=== PATIENT | male | born 1955 | race African-American/Black ===

== ENCOUNTER 2016-12-29 16:59 | Emergency (ER) | payer MEDICAID ==
[~2016-12-29] VITALS: Ht 182.9 cm; Wt 79.0 kg
[2016-12-29] MEDS ORDERED: ACETAMINOPHEN 325MG TABLET PO ONE (18:15)
[2016-12-29 22:43] VITALS: BP 140/78
== END 2016-12-29 22:44 | disposition home or self-care (01) ==
LOC: ER 17:15
DX: S09.90XA Unspecified injury of head, initial encounter (principal); I10 Essential (primary) hypertension; F17.200 Nicotine dependence, unspecified, uncomplicated; Y04.0XXA Assault by unarmed brawl or fight, initial encounter; Y93.89 Activity, other specified; Y92.89 Other specified places as the place of occurrence of the external cause; Y99.8 Other external cause status
CPT/HCPCS: 70450; 72040; 99284

== ENCOUNTER 2017-03-25 20:46 | Emergency (ER) | payer MEDICAID ==
[~2017-03-25] VITALS: Ht 182.9 cm; Wt 84.0 kg
[2017-03-26 03:22] LABS: CARBON DIOXIDE 29 mEq/L (21-32); CHLORIDE 104 mEq/L (98-107); ETHANOL BLOOD 141 mg/dL
[2017-03-26 03:29] LABS: BASOPHILS % 0.5 % (0.0-2.0); EOSINOPHILS % 2.2 % (0.0-5.0); HEMATOCRIT. 42.3 % (42.0-52.0); HEMOGLOBIN. 14.5 g/dL (14.0-18.0); LYMPHOCYTES % 36.7 % (20.0-50.0); MEAN CORPUSCULAR HEMOGLOBIN 38.1 pg (28.0-32.0); MEAN CORPUSCULAR VOLUME 111.2 fL (80.0-94.0); MEAN PLATELET VOLUME 8.6 fl (7.4-10.4); NEUTROPHILS % 53.6 % (40.0-76.0); PLATELET 193 x1000/uL (130-400); RED CELL DISTRIBUTION WIDTH 15.7 % (11.6-14.6)
[2017-03-26 03:29] LABS: CLARITY URINE CLEAR (CLEAR); COLOR URINE YELLOW (YELLOW); GLUCOSE URINE NEGATIVE (NEGATIVE); KETONES URINE NEGATIVE (NEGATIVE); LEUKOCYTE ESTERASE URINE NEGATIVE (NEGATIVE); NITRITE URINE NEGATIVE (NEGATIVE); OCCULT BLOOD URINE NEGATIVE (NEGATIVE); PH URINE 5.5 (4.5-8.0); PROTEIN URINE NEGATIVE (NEGATIVE); SPECIFIC GRAVITY URINE 1.011 (1.005-1.030); UROBILINOGEN URINE 0.2 E.U./dL (0.2-1.0)
[2017-03-26 03:43] LABS: *AMPHETAMINES SCREEN URINE NEGATIVE (NEGATIVE); *BARBITURATES SCREEN URINE NEGATIVE (NEGATIVE); *BENZODIAZEPINES SCREEN URINE NEGATIVE (NEGATIVE); *COCAINE SCREEN URINE NEGATIVE (NEGATIVE); CANNABINOID URINE SCREEN NEGATIVE (NEGATIVE); METHADONE URINE SCREEN NEGATIVE (NEGATIVE); OPIATES URINE SCREEN NEGATIVE (NEGATIVE); PHENCYCLIDINE URINE SCREEN PRESUMTIVE POSITIVE (NEGATIVE)
[2017-03-26 04:18] LABS: TROPONIN I < 0.02 ng/mL (0.00-0.04)
[2017-03-26 04:40] VITALS: BP 142/56
[2017-05-20] MEDS ORDERED: RIVA10TA PO (23:43)
== END 2017-03-26 07:27 | disposition left against medical advice (07) ==
LOC: ER 22:00
DX: R55 Syncope and collapse (principal); R06.02 Shortness of breath; R42 Dizziness and giddiness; I10 Essential (primary) hypertension; F17.200 Nicotine dependence, unspecified, uncomplicated; Z86.718 Personal history of other venous thrombosis and embolism
CPT/HCPCS: 36415; 70450; 71010; 72125; 80053; 80305; 81003; 83880; 84484; 85025; 93005; 99285; G0482; Z7610

== ENCOUNTER 2017-04-17 16:02 | Emergency (ER) | payer MEDICAID, OTHER ==
[~2017-04-17] VITALS: Ht 170.2 cm; Wt 80.0 kg
[2017-04-17 16:29] VITALS: BP 127/77
[2017-05-20] MEDS ORDERED: RIVA10TA PO (23:43)
== END 2017-04-17 19:20 | disposition left against medical advice (07) ==
LOC: ER 16:02
DX: Z53.21 Procedure and treatment not carried out due to patient leaving prior to being seen by health care provider (principal)

== ENCOUNTER 2017-04-29 17:24 | Inpatient (IN) | payer OTHER ==
[2017-04-28 21:48] VITALS: BP 138/89
[~2017-04-29] VITALS: Ht 177.8 cm; Wt 80.0 kg
[2017-04-29] MEDS ORDERED: ASPIRIN 81MG TABLET PO STA (17:56)
[2017-04-29] MEDS ORDERED: ONDANSETRON HCL 4MG/2ML VIAL IV STA (17:56)
[2017-04-29] MEDS ORDERED: MORPHINE SULFATE 10 MG/ML CPJ IV ONE (18:00)
[2017-04-29 18:19] LABS: BASOPHILS % 0.7 % (0.0-2.0); EOSINOPHILS % 1.1 % (0.0-5.0); HEMATOCRIT. 37.1 % (42.0-52.0); HEMOGLOBIN. 12.8 g/dL (14.0-18.0); LYMPHOCYTES % 24.7 % (20.0-50.0); MEAN CORPUSCULAR HEMOGLOBIN 36.9 pg (28.0-32.0); MEAN CORPUSCULAR VOLUME 106.8 fL (80.0-94.0); MEAN PLATELET VOLUME 8.6 fl (7.4-10.4); MONOCYTES % 7.8 % (2.0-8.0); NEUTROPHILS % 65.7 % (40.0-76.0); PLATELET 184 x1000/uL (130-400); RED BLOOD CELL COUNT 3.47 mill/uL (4.7-6.1); RED CELL DISTRIBUTION WIDTH 14.9 % (11.6-14.6)
[2017-04-29 18:25] LABS: CHLORIDE 105 mEq/L (98-107)
[2017-04-29 18:29] LABS: D-DIMER 2.22 mg/L FEU (<0.50); PARTIAL THROMBOPLASTIN TIME 26.4 sec (23.4-31.0); PROTHROMBIN TIME 10.5 sec (9.4-11.6)
[2017-04-29 18:31] LABS: CARBON DIOXIDE 25 mEq/L (21-32); ETHANOL BLOOD 112 mg/dL
[2017-04-29 18:34] LABS: *AMPHETAMINES SCREEN URINE NEGATIVE (NEGATIVE); *BARBITURATES SCREEN URINE NEGATIVE (NEGATIVE); *BENZODIAZEPINES SCREEN URINE PRESUMTIVE POSITIVE (NEGATIVE); *COCAINE SCREEN URINE NEGATIVE (NEGATIVE); CANNABINOID URINE SCREEN PRESUMTIVE POSITIVE (NEGATIVE); METHADONE URINE SCREEN NEGATIVE (NEGATIVE); OPIATES URINE SCREEN NEGATIVE (NEGATIVE); PHENCYCLIDINE URINE SCREEN PRESUMTIVE POSITIVE (NEGATIVE)
[2017-04-29 18:35] LABS: CREATINE KINASE 86 IU/L (39-308); TROPONIN I < 0.02 ng/mL (0.00-0.04)
[2017-04-29] MEDS ORDERED: CLONIDINE 0.2MG TABLET PO ONE (19:15)
[2017-04-29 21:18] VITALS: BP 138/89
[2017-04-29] MEDS ORDERED: ONDANSETRON HCL 4MG/2ML VIAL IV PRN (22:15)
[2017-04-29] MEDS ORDERED: MAGNESIUM/ALUMINUM HYDROXIDE/SIMETHICONE 30ML UDC PO PRN (22:15)
[2017-04-29] MEDS ORDERED: ACETAMINOPHEN 325MG TABLET PO PRN (22:15)
[2017-04-29] MEDS ORDERED: HYDROCODONE/ACETAMINOPHEN 5/325MG TABLET PO PRN (22:15)
[2017-04-29] MEDS ORDERED: LORAZEPAM 2MG/ML CPJ IV PRN (22:15)
[2017-04-29] MEDS ORDERED: IPRATROPIUM/ALBUTEROL 0.5-3(2.5)MG/3ML NEB INH PRN (22:15)
[2017-04-29] MEDS ORDERED: ENOXAPARIN 40MG/0.4ML SYR SUBCUT SCH (22:30)
[2017-04-29] MEDS ORDERED: IOHEXOL-350 100 ML BOTTLE ONE (23:16)
[2017-04-29] MEDS: ENOXAPARIN 80MG/0.8ML SYR SUBCUT SCH (23:16)
[2017-04-29] MEDS: SODIUM CHLORIDE 0.9% 1,000 ML IV SCH (23:24)
[2017-04-30] VITALS: BP 104/57
[2017-04-30] MEDS ORDERED: MVI, ADULT NO.1 10 ML, FOLIC ACID 1 MG, THIAMINE HCL 100 MG in SODIUM CHLORIDE 0.9% 1,0... IV NR ×4
[2017-04-30] MEDS ORDERED: CLON0.3T PO (00:20)
[2017-04-30] MEDS ORDERED: AMLO2.5T45 PO (00:20)
[2017-04-30 00:52] LABS: CARBON DIOXIDE 27 mEq/L (21-32); CHLORIDE 109 mEq/L (98-107)
[2017-04-30 04:00] VITALS: BP 116/58
[2017-04-30] MEDS: CHLORDIAZEPOXIDE 25MG CAPSULE PO SCH ×3 (05:54→21:21)
[2017-04-30 06:43] LABS: BASOPHILS % 0.8 % (0.0-2.0); EOSINOPHILS % 2.5 % (0.0-5.0); HEMATOCRIT. 35.2 % (42.0-52.0); HEMOGLOBIN. 11.9 g/dL (14.0-18.0); LYMPHOCYTES % 30.8 % (20.0-50.0); MEAN CORPUSCULAR HEMOGLOBIN 36.2 pg (28.0-32.0); MEAN CORPUSCULAR VOLUME 107.3 fL (80.0-94.0); MEAN PLATELET VOLUME 9.1 fl (7.4-10.4); MONOCYTES % 10.2 % (2.0-8.0); NEUTROPHILS % 55.7 % (40.0-76.0); PLATELET 162 x1000/uL (130-400); RED BLOOD CELL COUNT 3.28 mill/uL (4.7-6.1)
[2017-04-30 07:18] LABS: CREATINE KINASE MB FRACTION 1.2 ng/mL (0.5-3.6); TROPONIN I 0.03 ng/mL (0.00-0.04)
[2017-04-30 08:00] VITALS: BP 160/87
[2017-04-30] MEDS: THIAMINE HCL 100MG TABLET PO SCH (09:01)
[2017-04-30] MEDS: ENOXAPARIN 80MG/0.8ML SYR SUBCUT SCH ×2 (09:01→21:21)
[2017-04-30] MEDS: FOLIC ACID 1MG TABLET PO SCH (09:01)
[2017-04-30] MEDS: MULTIVITAMINS,THER W-MINERALS TABLET PO SCH (09:01)
[2017-04-30] MEDS: SODIUM CHLORIDE 0.9% 1,000 ML IV SCH (11:24)
[2017-04-30 11:33] VITALS: BP 110/64
[2017-04-30 15:38] VITALS: BP 141/70
[2017-04-30 15:56] LABS: CREATINE KINASE MB FRACTION 0.8 ng/mL (0.5-3.6); TROPONIN I 0.02 ng/mL (0.00-0.04)
[2017-04-30 20:00] VITALS: BP 144/81
[2017-05-01] VITALS: BP 137/85
[2017-05-01] MEDS: SODIUM CHLORIDE 0.9% 1,000 ML IV SCH ×2 (00:45→13:36)
[2017-05-01 04:00] VITALS: BP 142/84
[2017-05-01] MEDS: CHLORDIAZEPOXIDE 25MG CAPSULE PO SCH ×3 (05:06→21:18)
[2017-05-01 07:38] VITALS: BP 152/96
[2017-05-01] MEDS: FOLIC ACID 1MG TABLET PO SCH (08:50)
[2017-05-01] MEDS: CLONIDINE 0.1MG TABLET PO PRN ×2 (08:50→20:30)
[2017-05-01 08:51] LABS: BASOPHILS % 0.6 % (0.0-2.0); EOSINOPHILS % 1.9 % (0.0-5.0); HEMATOCRIT. 37.6 % (42.0-52.0); HEMOGLOBIN. 12.7 g/dL (14.0-18.0); LYMPHOCYTES % 25.8 % (20.0-50.0); MEAN CORPUSCULAR HEMOGLOBIN 36.2 pg (28.0-32.0); MEAN CORPUSCULAR VOLUME 107.1 fL (80.0-94.0); MEAN PLATELET VOLUME 9.6 fl (7.4-10.4); MONOCYTES % 9.8 % (2.0-8.0); NEUTROPHILS % 61.9 % (40.0-76.0); PLATELET 157 x1000/uL (130-400); RED BLOOD CELL COUNT 3.51 mill/uL (4.7-6.1)
[2017-05-01] MEDS: THIAMINE HCL 100MG TABLET PO SCH (08:51)
[2017-05-01] MEDS: MULTIVITAMINS,THER W-MINERALS TABLET PO SCH (08:51)
[2017-05-01] MEDS: ENOXAPARIN 80MG/0.8ML SYR SUBCUT SCH ×2 (08:51→20:30)
[2017-05-01 09:38] LABS: CARBON DIOXIDE 25 mEq/L (21-32); CHLORIDE 109 mEq/L (98-107)
[2017-05-01 11:47] VITALS: BP 126/71
[2017-05-01 14:52] LABS: BASOPHILS % 0.6 % (0.0-2.0); HEMATOCRIT. 39.5 % (42.0-52.0); HEMOGLOBIN. 13.3 g/dL (14.0-18.0); LYMPHOCYTES % 29.1 % (20.0-50.0); MEAN CORPUSCULAR HEMOGLOBIN 36.4 pg (28.0-32.0); MEAN CORPUSCULAR VOLUME 107.6 fL (80.0-94.0); MEAN PLATELET VOLUME 9.2 fl (7.4-10.4); MONOCYTES % 10.7 % (2.0-8.0); NEUTROPHILS % 57.6 % (40.0-76.0); PLATELET 160 x1000/uL (130-400); RED BLOOD CELL COUNT 3.67 mill/uL (4.7-6.1); RED CELL DISTRIBUTION WIDTH 14.8 % (11.6-14.6)
[2017-05-01 14:57] LABS: CHLORIDE 110 mEq/L (98-107)
[2017-05-01 15:01] LABS: CARBON DIOXIDE 27 mEq/L (21-32)
[2017-05-01 16:00] VITALS: BP 143/77
[2017-05-01] MEDS ORDERED: WARFARIN SODIUM 7.5MG TABLET PO SCH (18:00)
[2017-05-01 20:00] VITALS: BP 163/82
[2017-05-01] MEDS: AMLODIPINE 2.5MG TABLET PO SCH (20:30)
[2017-05-02] VITALS: BP 154/82
[2017-05-02] MEDS: SODIUM CHLORIDE 0.9% 1,000 ML IV SCH ×2 (02:35→16:02)
[2017-05-02 04:05] VITALS: BP 173/94
[2017-05-02] MEDS: CLONIDINE 0.1MG TABLET PO PRN (04:29)
[2017-05-02] MEDS: CHLORDIAZEPOXIDE 25MG CAPSULE PO SCH ×3 (05:50→21:19)
[2017-05-02 06:32] LABS: INR 1.1
[2017-05-02 08:00] VITALS: BP 156/91
[2017-05-02] MEDS: MULTIVITAMINS,THER W-MINERALS TABLET PO SCH (08:27)
[2017-05-02] MEDS: ENOXAPARIN 80MG/0.8ML SYR SUBCUT SCH ×2 (08:27→20:39)
[2017-05-02] MEDS: FOLIC ACID 1MG TABLET PO SCH (08:28)
[2017-05-02] MEDS: AMLODIPINE 2.5MG TABLET PO SCH (08:28)
[2017-05-02] MEDS: THIAMINE HCL 100MG TABLET PO SCH (08:28)
[2017-05-02 12:00] VITALS: BP 143/93
[2017-05-02 16:00] VITALS: BP 146/99
[2017-05-02] MEDS ORDERED: WARFARIN SODIUM 4MG TABLET PO NR (18:00)
[2017-05-02 19:55] VITALS: BP 160/88
[2017-05-02] MEDS: AMLODIPINE 5MG TABLET PO SCH (20:39)
[2017-05-03 00:01] VITALS: BP 152/75
[2017-05-03 03:53] VITALS: BP 141/85
[2017-05-03] MEDS: CHLORDIAZEPOXIDE 25MG CAPSULE PO SCH ×2 (05:07→12:55)
[2017-05-03 07:16] LABS: INR 1.1; PROTHROMBIN TIME 11.2 sec (9.4-11.6)
[2017-05-03 08:00] VITALS: BP 177/97
[2017-05-03] MEDS: CLONIDINE 0.1MG TABLET PO PRN (09:16)
[2017-05-03] MEDS: MULTIVITAMINS,THER W-MINERALS TABLET PO SCH (09:16)
[2017-05-03] MEDS: THIAMINE HCL 100MG TABLET PO SCH (09:16)
[2017-05-03] MEDS: AMLODIPINE 5MG TABLET PO SCH (09:16)
[2017-05-03] MEDS: FOLIC ACID 1MG TABLET PO SCH (09:17)
[2017-05-03] MEDS: ENOXAPARIN 80MG/0.8ML SYR SUBCUT SCH (09:17)
[2017-05-03 12:00] VITALS: BP 142/82
[2017-05-03] MEDS: SODIUM CHLORIDE 0.9% 1,000 ML IV SCH (12:42)
[2017-05-03 16:00] VITALS: BP 135/88
[2017-05-03 17:33] VITALS: BP 135/88
[2017-05-03] MEDS ORDERED: WARFARIN SODIUM 7.5MG TABLET PO SCH (18:00)
[2017-05-20] MEDS ORDERED: RIVA10TA PO (23:43)
== END 2017-05-03 18:26 | disposition home health service (06) | DRG 203 ==
LOC: ER 18:33 → 8WST 19:41 → EDBEDREQTM 19:43 → EDBEDREQ 19:43 → ENRESERV 20:05 → 8WST 21:18
PROVIDERS: ADMIT Internal Medicine; ATTEND Internal Medicine
DX: M94.0 Chondrocostal junction syndrome [Tietze] (principal); I27.82 Chronic pulmonary embolism; I10 Essential (primary) hypertension; D64.9 Anemia, unspecified; F16.10 Hallucinogen abuse, uncomplicated; F10.10 Alcohol abuse, uncomplicated; F12.90 Cannabis use, unspecified, uncomplicated; D63.8 Anemia in other chronic diseases classified elsewhere; F17.200 Nicotine dependence, unspecified, uncomplicated; I82.503 Chronic embolism and thrombosis of unspecified deep veins of lower extremity, bilateral; J44.9 Chronic obstructive pulmonary disease, unspecified; F19.10 Other psychoactive substance abuse, uncomplicated; Z79.01 Long term (current) use of anticoagulants; Z91.14 Patient's other noncompliance with medication regimen
CPT/HCPCS: 36415; 71010; 71275; 80048; 80053; 80061; 80305; 82550; 82553; 83605; 83690; 83735; 83880; 84443; 84484; 85025; 85379; 85610; 85730; 87040; 93005; 93306; 93970; 96374; 96375; 99285; G0482; J1650; J2270; J2405; J3411; J3490; J7030; Q9967

== ENCOUNTER 2017-05-14 15:55 | Emergency (ER) | payer OTHER ==
[~2017-05-14 15:55] MED LIST: AMLO2.5T45 PO; CLON0.3T PO
[2017-05-14 20:35] VITALS: BP 168/90
[2017-05-14 21:48] LABS: BASOPHILS % 0.5 % (0.0-2.0); EOSINOPHILS % 2.7 % (0.0-5.0); HEMOGLOBIN. 14.9 g/dL (14.0-18.0); INR 1.1; LYMPHOCYTES % 26.7 % (20.0-50.0); MEAN CORPUSCULAR HEMOGLOBIN 36.5 pg (28.0-32.0); MEAN CORPUSCULAR VOLUME 107.5 fL (80.0-94.0); MEAN PLATELET VOLUME 9.1 fl (7.4-10.4); MONOCYTES % 5.1 % (2.0-8.0); PLATELET 155 x1000/uL (130-400); PROTHROMBIN TIME 11.2 sec (9.4-11.6); RED BLOOD CELL COUNT 4.09 mill/uL (4.7-6.1); RED CELL DISTRIBUTION WIDTH 14.7 % (11.6-14.6)
[2017-05-14 21:57] LABS: CARBON DIOXIDE 23 mEq/L (21-32); CHLORIDE 104 mEq/L (98-107); ETHANOL BLOOD 61 mg/dL; TROPONIN I < 0.02 ng/mL (0.00-0.04)
[2017-05-14 22:17] LABS: *AMPHETAMINES SCREEN URINE NEGATIVE (NEGATIVE); *BARBITURATES SCREEN URINE NEGATIVE (NEGATIVE); *BENZODIAZEPINES SCREEN URINE PRESUMTIVE POSITIVE (NEGATIVE); *COCAINE SCREEN URINE NEGATIVE (NEGATIVE); CANNABINOID URINE SCREEN NEGATIVE (NEGATIVE); METHADONE URINE SCREEN NEGATIVE (NEGATIVE); OPIATES URINE SCREEN NEGATIVE (NEGATIVE); PHENCYCLIDINE URINE SCREEN PRESUMTIVE POSITIVE (NEGATIVE)
[2017-05-20] MEDS ORDERED: RIVA10TA PO (23:43)
== END 2017-05-15 01:21 | disposition home or self-care (01) ==
LOC: ER 16:07
DX: R42 Dizziness and giddiness (principal); F16.10 Hallucinogen abuse, uncomplicated; F13.10 Sedative, hypnotic or anxiolytic abuse, uncomplicated; F12.10 Cannabis abuse, uncomplicated; F10.20 Alcohol dependence, uncomplicated; Y90.3 Blood alcohol level of 60-79 mg/100 ml; R07.89 Other chest pain; I10 Essential (primary) hypertension; Z91.14 Patient's other noncompliance with medication regimen
CPT/HCPCS: 36415; 71010; 80053; 80305; 83690; 83880; 84484; 85025; 85610; 85730; 93005; 99285; G0482; Z7610

== ENCOUNTER 2017-05-24 20:35 | Emergency (ER) | payer MEDICAID, OTHER ==
[~2017-05-24] VITALS: Ht 177.8 cm; Wt 95.0 kg
[~2017-05-24 20:35] MED LIST changes: +RIVA10TA PO
[2017-05-25] MEDS ORDERED: ACETAMINOPHEN 500MG TABLET PO ONE (00:15)
[2017-05-25 00:48] VITALS: BP 129/85
[2017-05-25] MEDS ORDERED: RIVAROXABAN 10 MG TABLET PO SCH (17:00)
== END 2017-05-25 00:49 | disposition home or self-care (01) ==
LOC: ER 20:35
DX: M79.661 Pain in right lower leg (principal); G89.29 Other chronic pain; Z86.718 Personal history of other venous thrombosis and embolism; Z79.01 Long term (current) use of anticoagulants
CPT/HCPCS: 99283

== ENCOUNTER 2017-05-27 15:19 | Emergency (ER) | payer MEDICAID, OTHER ==
[~2017-05-27] VITALS: Ht 172.7 cm; Wt 77.0 kg
[2017-05-27] MEDS ORDERED: SODIUM CHLORIDE 0.9% 1,000 ML IV ONE (18:51)
[2017-05-27 20:33] LABS: *AMPHETAMINES SCREEN URINE NEGATIVE (NEGATIVE); *BARBITURATES SCREEN URINE NEGATIVE (NEGATIVE); *BENZODIAZEPINES SCREEN URINE PRESUMTIVE POSITIVE (NEGATIVE); *COCAINE SCREEN URINE NEGATIVE (NEGATIVE); CANNABINOID URINE SCREEN NEGATIVE (NEGATIVE); METHADONE URINE SCREEN NEGATIVE (NEGATIVE); OPIATES URINE SCREEN NEGATIVE (NEGATIVE); PHENCYCLIDINE URINE SCREEN PRESUMTIVE POSITIVE (NEGATIVE)
[2017-05-27 21:30] VITALS: BP 120/70
== END 2017-05-27 22:07 | disposition home or self-care (01) ==
LOC: ER 15:25
DX: F19.10 Other psychoactive substance abuse, uncomplicated (principal); Z79.01 Long term (current) use of anticoagulants; Z86.718 Personal history of other venous thrombosis and embolism
CPT/HCPCS: 36415; 80305; 96360; 99284; G0482; J7030; Z7610

== ENCOUNTER 2017-05-27 22:37 | Emergency (ER) | payer MEDICAID ==
[~2017-05-27] VITALS: Ht 182.9 cm; Wt 74.0 kg
[2017-05-28 07:04] VITALS: BP 162/84
[2017-05-28] MEDS ORDERED: ACETAMINOPHEN 500MG TABLET PO ONE (08:30)
[2017-05-28] MEDS ORDERED: TRAMADOL 50MG TABLET PO ONE (08:30)
== END 2017-05-28 09:13 | disposition left against medical advice (07) ==
LOC: ER 22:38
DX: R07.9 Chest pain, unspecified (principal); M79.605 Pain in left leg; M54.9 Dorsalgia, unspecified; F12.10 Cannabis abuse, uncomplicated; F16.10 Hallucinogen abuse, uncomplicated; F17.200 Nicotine dependence, unspecified, uncomplicated; Z79.01 Long term (current) use of anticoagulants; Z91.19 Patient's noncompliance with other medical treatment and regimen
CPT/HCPCS: 93005; 99284; Z7610

== ENCOUNTER 2017-06-03 15:24 | Emergency (ER) | payer MEDICAID ==
[~2017-06-03] VITALS: Ht 175.3 cm; Wt 85.0 kg
[2017-06-03 19:15] VITALS: BP 138/74
== END 2017-06-03 19:38 | disposition home or self-care (01) ==
LOC: ER 15:41
DX: F10.129 Alcohol abuse with intoxication, unspecified (principal); F17.200 Nicotine dependence, unspecified, uncomplicated; G89.29 Other chronic pain; F15.10 Other stimulant abuse, uncomplicated; Z86.718 Personal history of other venous thrombosis and embolism; Y90.9 Presence of alcohol in blood, level not specified
CPT/HCPCS: 82962; 99283

== ENCOUNTER 2017-06-13 19:45 | Emergency (ER) | payer MEDICAID, OTHER ==
[~2017-06-13] VITALS: Ht 177.8 cm; Wt 86.0 kg
[2017-06-13 21:07] LABS: BASOPHILS % 0.7 % (0.0-2.0); EOSINOPHILS % 0.5 % (0.0-5.0); HEMATOCRIT. 36.4 % (42.0-52.0); HEMOGLOBIN. 12.2 g/dL (14.0-18.0); LYMPHOCYTES % 21.9 % (20.0-50.0); MEAN CORPUSCULAR HEMOGLOBIN 34.8 pg (28.0-32.0); MEAN CORPUSCULAR VOLUME 103.9 fL (80.0-94.0); MEAN PLATELET VOLUME 8.4 fl (7.4-10.4); MONOCYTES % 7.7 % (2.0-8.0); NEUTROPHILS % 69.2 % (40.0-76.0); PLATELET 185 x1000/uL (130-400); RED BLOOD CELL COUNT 3.51 mill/uL (4.7-6.1); RED CELL DISTRIBUTION WIDTH 14.9 % (11.6-14.6)
[2017-06-13 21:09] LABS: CLARITY URINE CLEAR (CLEAR); COLOR URINE YELLOW (YELLOW); GLUCOSE URINE NEGATIVE (NEGATIVE); KETONES URINE TRACE (NEGATIVE); LEUKOCYTE ESTERASE URINE NEGATIVE (NEGATIVE); NITRITE URINE NEGATIVE (NEGATIVE); OCCULT BLOOD URINE NEGATIVE (NEGATIVE); PROTEIN URINE NEGATIVE (NEGATIVE); SPECIFIC GRAVITY URINE 1.017 (1.005-1.030); UROBILINOGEN URINE 0.2 E.U./dL (0.2-1.0)
[2017-06-13 21:13] LABS: CHLORIDE 105 mEq/L (98-107)
[2017-06-13 21:16] LABS: PARTIAL THROMBOPLASTIN TIME 27.3 sec (23.4-31.0); PROTHROMBIN TIME 10.5 sec (9.4-11.6)
[2017-06-13 21:17] LABS: CARBON DIOXIDE 28 mEq/L (21-32)
[2017-06-13 21:23] LABS: *AMPHETAMINES SCREEN URINE NEGATIVE (NEGATIVE); *BARBITURATES SCREEN URINE NEGATIVE (NEGATIVE); *BENZODIAZEPINES SCREEN URINE NEGATIVE (NEGATIVE); *COCAINE SCREEN URINE NEGATIVE (NEGATIVE); CANNABINOID URINE SCREEN NEGATIVE (NEGATIVE); METHADONE URINE SCREEN NEGATIVE (NEGATIVE); OPIATES URINE SCREEN NEGATIVE (NEGATIVE); PHENCYCLIDINE URINE SCREEN PRESUMTIVE POSITIVE (NEGATIVE)
[2017-06-13 21:23] LABS: TROPONIN I < 0.02 ng/mL (0.00-0.04)
[2017-06-13] MEDS ORDERED: SODIUM CHLORIDE 0.9% 1,000 ML IV ONE (23:30)
[2017-06-14 06:27] VITALS: BP 143/87
== END 2017-06-14 06:25 | disposition home or self-care (01) ==
LOC: ER 19:45
DX: R42 Dizziness and giddiness (principal); F10.10 Alcohol abuse, uncomplicated; Y90.1 Blood alcohol level of 20-39 mg/100 ml; F16.10 Hallucinogen abuse, uncomplicated; F12.90 Cannabis use, unspecified, uncomplicated; F17.210 Nicotine dependence, cigarettes, uncomplicated
CPT/HCPCS: 36415; 71010; 80053; 80305; 81003; 83690; 84484; 85025; 85610; 85730; 93005; 99285; G0482; J7030; Z7610

== ENCOUNTER 2017-06-18 14:42 | Emergency (ER) | payer OTHER ==
[~2017-06-18] VITALS: Ht 175.3 cm; Wt 98.0 kg
[2017-06-18 16:00] LABS: BASOPHILS % 0.5 % (0.0-2.0); EOSINOPHILS % 0.7 % (0.0-5.0); HEMATOCRIT. 37.6 % (42.0-52.0); MEAN CORPUSCULAR HEMOGLOBIN 36.7 pg (28.0-32.0); MEAN CORPUSCULAR VOLUME 106.3 fL (80.0-94.0); MEAN PLATELET VOLUME 9.5 fl (7.4-10.4); MONOCYTES % 7.4 % (2.0-8.0); NEUTROPHILS % 71.4 % (40.0-76.0); PLATELET 239 x1000/uL (130-400); RED BLOOD CELL COUNT 3.54 mill/uL (4.7-6.1)
[2017-06-18 16:36] LABS: CARBON DIOXIDE 28 mEq/L (21-32); CHLORIDE 107 mEq/L (98-107); ETHANOL BLOOD < 10 mg/dL; TROPONIN I < 0.02 ng/mL (0.00-0.04)
[2017-06-18] MEDS ORDERED: IBUPROFEN 400MG TABLET PO ONE (20:45)
[2017-06-18] MEDS ORDERED: ACETAMINOPHEN 325MG TABLET PO ONE (20:45)
[2017-06-18 21:05] VITALS: BP 107/65
== END 2017-06-18 21:05 | disposition home or self-care (01) ==
LOC: ER 14:59
DX: R07.9 Chest pain, unspecified (principal); R51 Headache; M54.9 Dorsalgia, unspecified; I10 Essential (primary) hypertension; F12.10 Cannabis abuse, uncomplicated; F16.10 Hallucinogen abuse, uncomplicated; Z86.718 Personal history of other venous thrombosis and embolism
CPT/HCPCS: 36415; 80053; 84484; 85025; 93005; 99285; G0482; Z7610

== ENCOUNTER 2017-06-19 14:57 | Emergency (ER) | payer OTHER ==
[~2017-06-19] VITALS: Ht 172.7 cm; Wt 88.0 kg
[2017-06-19 15:59] LABS: BASOPHILS % 1.2 % (0.0-2.0); EOSINOPHILS % 0.4 % (0.0-5.0); HEMATOCRIT. 35.1 % (42.0-52.0); HEMOGLOBIN. 12.6 g/dL (14.0-18.0); LYMPHOCYTES % 25.2 % (20.0-50.0); MEAN CORPUSCULAR HEMOGLOBIN 37.5 pg (28.0-32.0); MEAN CORPUSCULAR VOLUME 104.9 fL (80.0-94.0); MEAN PLATELET VOLUME 8.1 fl (7.4-10.4); MONOCYTES % 7.6 % (2.0-8.0); NEUTROPHILS % 65.6 % (40.0-76.0); PLATELET 179 x1000/uL (130-400); RED BLOOD CELL COUNT 3.35 mill/uL (4.7-6.1); RED CELL DISTRIBUTION WIDTH 14.8 % (11.6-14.6)
[2017-06-19 16:05] LABS: INR 1.1; PARTIAL THROMBOPLASTIN TIME 26.4 sec (23.4-31.0); PROTHROMBIN TIME 11.1 sec (9.4-11.6)
[2017-06-19 16:16] LABS: AMMONIA < 25 uMol/L (<32)
[2017-06-19 16:23] LABS: CARBON DIOXIDE 26 mEq/L (21-32); CHLORIDE 106 mEq/L (98-107); ETHANOL BLOOD 65 mg/dL; TROPONIN I < 0.02 ng/mL (0.00-0.04)
[2017-06-19] MEDS ORDERED: KETOROLAC 30MG/ML VIAL IV ONE (18:00)
[2017-06-19] MEDS ORDERED: SODIUM CHLORIDE 0.9% 1,000 ML IV ONE (18:00)
[2017-06-19 18:07] LABS: CLARITY URINE CLEAR (CLEAR); COLOR URINE DARK YELLOW (YELLOW); KETONES URINE TRACE (NEGATIVE); LEUKOCYTE ESTERASE URINE TRACE (NEGATIVE); NITRITE URINE NEGATIVE (NEGATIVE); OCCULT BLOOD URINE NEGATIVE (NEGATIVE); PROTEIN URINE 1+ (NEGATIVE)
[2017-06-19 18:28] LABS: *AMPHETAMINES SCREEN URINE NEGATIVE (NEGATIVE); *BARBITURATES SCREEN URINE NEGATIVE (NEGATIVE); *BENZODIAZEPINES SCREEN URINE NEGATIVE (NEGATIVE); *COCAINE SCREEN URINE NEGATIVE (NEGATIVE); CANNABINOID URINE SCREEN PRESUMTIVE POSITIVE (NEGATIVE); METHADONE URINE SCREEN NEGATIVE (NEGATIVE); OPIATES URINE SCREEN NEGATIVE (NEGATIVE); PHENCYCLIDINE URINE SCREEN PRESUMTIVE POSITIVE (NEGATIVE)
[2017-06-19] MEDS ORDERED: TRAMADOL 50MG TABLET PO ONE (21:00)
[2017-06-19 21:44] VITALS: BP 145/96
== END 2017-06-19 22:10 | disposition home or self-care (01) ==
LOC: ER 15:33
DX: F10.239 Alcohol dependence with withdrawal, unspecified (principal); I10 Essential (primary) hypertension; F12.10 Cannabis abuse, uncomplicated; F16.10 Hallucinogen abuse, uncomplicated; M19.90 Unspecified osteoarthritis, unspecified site; Y90.3 Blood alcohol level of 60-79 mg/100 ml
CPT/HCPCS: 36415; 70450; 72125; 80053; 80305; 81001; 82140; 83605; 84443; 84484; 85025; 85610; 85730; 86850; 86900; 86901; 93005; 96374; 99285; G0482; J1885; J7030; Z7610

== ENCOUNTER 2017-06-20 16:50 | Emergency (ER) | payer OTHER ==
[~2017-06-20] VITALS: Ht 175.3 cm; Wt 75.0 kg
[2017-06-20 16:53] VITALS: BP 124/78
== END 2017-06-20 19:30 | disposition left against medical advice (07) ==
LOC: ER 17:05
DX: M54.9 Dorsalgia, unspecified (principal); Z53.21 Procedure and treatment not carried out due to patient leaving prior to being seen by health care provider

== ENCOUNTER 2017-07-06 12:15 | Emergency (ER) | payer OTHER ==
[~2017-07-06] VITALS: Ht 177.8 cm; Wt 75.0 kg
[2017-07-06 15:30] VITALS: BP 136/82
[2017-07-06] MEDS: KETOROLAC 30MG/ML VIAL IM ONE (15:30)
== END 2017-07-06 15:49 | disposition home or self-care (01) ==
LOC: ER 12:15
DX: B34.9 Viral infection, unspecified (principal); I10 Essential (primary) hypertension; F12.10 Cannabis abuse, uncomplicated; F19.10 Other psychoactive substance abuse, uncomplicated
CPT/HCPCS: 96372; 99283; J1885

== ENCOUNTER 2017-07-09 17:39 | Emergency (ER) | payer MEDICAID, OTHER ==
[~2017-07-09] VITALS: Ht 182.9 cm; Wt 107.0 kg
[2017-07-09] MEDS ORDERED: ACETAMINOPHEN 325MG TABLET PO STA (20:58)
[2017-07-09] MEDS ORDERED: KETOROLAC 30MG/ML VIAL IV STA (20:58)
[2017-07-09 21:20] LABS: BASOPHILS % 0.9 % (0.0-2.0); EOSINOPHILS % 1.5 % (0.0-5.0); HEMATOCRIT. 41.1 % (42.0-52.0); HEMOGLOBIN. 13.6 g/dL (14.0-18.0); LYMPHOCYTES % 26.9 % (20.0-50.0); MEAN CORPUSCULAR HEMOGLOBIN 34.8 pg (28.0-32.0); MEAN CORPUSCULAR VOLUME 105.4 fL (80.0-94.0); MEAN PLATELET VOLUME 8.4 fl (7.4-10.4); MONOCYTES % 14.7 % (2.0-8.0); PLATELET 175 x1000/uL (130-400); RED CELL DISTRIBUTION WIDTH 15.8 % (11.6-14.6)
[2017-07-09 21:23] LABS: CHLORIDE 105 mEq/L (98-107)
[2017-07-09 21:26] LABS: PROTHROMBIN TIME 10.8 sec (9.4-11.6)
[2017-07-09] MEDS ORDERED: SODIUM CHLORIDE 0.9% 500 ML IV ONE (21:30)
[2017-07-09 21:33] LABS: CARBON DIOXIDE 27 mEq/L (21-32)
[2017-07-09 23:08] LABS: CLARITY URINE CLEAR (CLEAR); COLOR URINE DARK YELLOW (YELLOW); KETONES URINE 1+ (NEGATIVE); LEUKOCYTE ESTERASE URINE NEGATIVE (NEGATIVE); NITRITE URINE NEGATIVE (NEGATIVE); OCCULT BLOOD URINE NEGATIVE (NEGATIVE); PROTEIN URINE 1+ (NEGATIVE); SPECIFIC GRAVITY URINE 1.026 (1.005-1.030)
[2017-07-09] MEDS ORDERED: CEFTRIAXONE 2 G in DEXTROSE 5% WATER 50 ML IV NR (23:45)
[2017-07-09] MEDS ORDERED: ACETAMINOPHEN 325MG TABLET PO NR (23:45)
[2017-07-10 12:00] VITALS: BP 140/84
== END 2017-07-10 13:47 | disposition home or self-care (01) ==
LOC: ER 18:10
DX: M48.56XA Collapsed vertebra, not elsewhere classified, lumbar region, initial encounter for fracture (principal); D53.9 Nutritional anemia, unspecified; N39.0 Urinary tract infection, site not specified; G89.29 Other chronic pain; I10 Essential (primary) hypertension; F12.10 Cannabis abuse, uncomplicated; F16.10 Hallucinogen abuse, uncomplicated; F17.200 Nicotine dependence, unspecified, uncomplicated; Z86.718 Personal history of other venous thrombosis and embolism
CPT/HCPCS: 36415; 74176; 80053; 81001; 83690; 85025; 85610; 87077; 87086; 87186; 96361; 96365; 96375; 99285; J0696; J1885; J7030; J7040; Z7610; J7060

== ENCOUNTER 2017-07-12 23:00 | Emergency (ER) | payer MEDICAID ==
[~2017-07-12] VITALS: Ht 172.7 cm; Wt 75.0 kg
[2017-07-13] MEDS ORDERED: ACETAMINOPHEN 325MG TABLET PO ONE (06:45)
[2017-07-13 07:26] VITALS: BP 159/99
== END 2017-07-13 08:47 | disposition home or self-care (01) ==
LOC: ER 23:00
DX: F10.129 Alcohol abuse with intoxication, unspecified (principal); M54.5 Low back pain; F17.200 Nicotine dependence, unspecified, uncomplicated; I10 Essential (primary) hypertension; F12.10 Cannabis abuse, uncomplicated; F19.10 Other psychoactive substance abuse, uncomplicated; Y90.9 Presence of alcohol in blood, level not specified
CPT/HCPCS: 99283

== ENCOUNTER 2017-07-18 08:57 | Emergency (ER) | payer MEDICAID ==
[~2017-07-18] VITALS: Ht 177.8 cm; Wt 75.0 kg
[2017-07-18 11:14] VITALS: BP 150/81
[2017-07-18] MEDS ORDERED: ONDANSETRON HCL 4MG/2ML VIAL IV ONE (11:15)
[2017-07-18] MEDS ORDERED: SODIUM CHLORIDE 0.9% 1,000 ML IV ONE (11:15)
[2017-07-18 11:58] LABS: BASOPHILS % 0.4 % (0.0-2.0); EOSINOPHILS % 0.4 % (0.0-5.0); HEMATOCRIT. 39.8 % (42.0-52.0); HEMOGLOBIN. 13.4 g/dL (14.0-18.0); LYMPHOCYTES % 20.8 % (20.0-50.0); MEAN CORPUSCULAR HEMOGLOBIN 35.5 pg (28.0-32.0); MEAN CORPUSCULAR VOLUME 105.5 fL (80.0-94.0); MEAN PLATELET VOLUME 9.2 fl (7.4-10.4); MONOCYTES % 7.7 % (2.0-8.0); NEUTROPHILS % 70.7 % (40.0-76.0); PLATELET 140 x1000/uL (130-400); RED BLOOD CELL COUNT 3.77 mill/uL (4.7-6.1); RED CELL DISTRIBUTION WIDTH 15.9 % (11.6-14.6)
[2017-07-18] MEDS ORDERED: ONDANSETRON 4MG ODT PO SCH (12:00)
[2017-07-18 12:02] LABS: CHLORIDE 107 mEq/L (98-107)
[2017-07-18 12:11] LABS: CARBON DIOXIDE 31 mEq/L (21-32)
[2017-07-18] MEDS ORDERED: ACETAMINOPHEN 500MG TABLET PO ONE (13:00)
== END 2017-07-18 14:47 | disposition home or self-care (01) ==
LOC: ER 09:13
DX: R10.13 Epigastric pain (principal); M25.551 Pain in right hip; I10 Essential (primary) hypertension; F16.10 Hallucinogen abuse, uncomplicated; F12.90 Cannabis use, unspecified, uncomplicated; F10.10 Alcohol abuse, uncomplicated; R79.89 Other specified abnormal findings of blood chemistry; Z79.899 Other long term (current) drug therapy
CPT/HCPCS: 36415; 73502; 80053; 85025; 99285; J2405; J7030; Q0162; Z7610

== ENCOUNTER 2017-07-19 23:06 | Emergency (ER) | payer MEDICAID ==
[~2017-07-19] VITALS: Ht 185.4 cm; Wt 72.0 kg
[2017-07-20 08:15] VITALS: BP 181/92
== END 2017-07-20 09:22 | disposition home or self-care (01) ==
LOC: ER 23:06
DX: S22.32XA Fracture of one rib, left side, initial encounter for closed fracture (principal); I10 Essential (primary) hypertension; W01.198A Fall on same level from slipping, tripping and stumbling with subsequent striking against other object, initial encounter; Y93.89 Activity, other specified; Y92.89 Other specified places as the place of occurrence of the external cause; Y99.8 Other external cause status
CPT/HCPCS: 71101; 99284; Z7610

== ENCOUNTER 2017-08-14 21:17 | Inpatient (IN) | payer MEDICAID ==
[~2017-08-14] VITALS: Ht 182.9 cm; Wt 86.2 kg
[2017-08-15] MEDS ORDERED: MORPHINE SULFATE 4 MG/ML CPJ (NOT FOR IM USE) IV ONE (06:15)
[2017-08-15] MEDS ORDERED: FAMOTIDINE 20MG/2ML VIAL IV ONE (06:15)
[2017-08-15] MEDS ORDERED: SODIUM CHLORIDE 0.9% 1,000 ML IV ONE (06:15)
[2017-08-15 06:41] LABS: BASOPHILS % 0.8 % (0.0-2.0); EOSINOPHILS % 6.1 % (0.0-5.0); HEMATOCRIT. 35.3 % (42.0-52.0); HEMOGLOBIN. 11.8 g/dL (14.0-18.0); LYMPHOCYTES % 22.3 % (20.0-50.0); MEAN CORPUSCULAR HEMOGLOBIN 34.9 pg (28.0-32.0); MEAN CORPUSCULAR VOLUME 104.3 fL (80.0-94.0); MONOCYTES % 8.4 % (2.0-8.0); NEUTROPHILS % 62.4 % (40.0-76.0); PLATELET 234 x1000/uL (130-400); RED BLOOD CELL COUNT 3.39 mill/uL (4.7-6.1); RED CELL DISTRIBUTION WIDTH 15.4 % (11.6-14.6)
[2017-08-15 06:48] LABS: PROTHROMBIN TIME 10.1 sec (9.4-11.6)
[2017-08-15 06:54] LABS: CHLORIDE 106 mEq/L (98-107)
[2017-08-15 08:25] LABS: CLARITY URINE CLEAR (CLEAR); COLOR URINE YELLOW (YELLOW); KETONES URINE NEGATIVE (NEGATIVE); LEUKOCYTE ESTERASE URINE NEGATIVE (NEGATIVE); NITRITE URINE NEGATIVE (NEGATIVE); OCCULT BLOOD URINE NEGATIVE (NEGATIVE); PROTEIN URINE NEGATIVE (NEGATIVE); UROBILINOGEN URINE 0.2 E.U./dL (0.2-1.0)
[2017-08-15 08:39] LABS: *AMPHETAMINES SCREEN URINE NEGATIVE (NEGATIVE); *BARBITURATES SCREEN URINE NEGATIVE (NEGATIVE); *BENZODIAZEPINES SCREEN URINE NEGATIVE (NEGATIVE); *COCAINE SCREEN URINE NEGATIVE (NEGATIVE); CANNABINOID URINE SCREEN NEGATIVE (NEGATIVE); METHADONE URINE SCREEN NEGATIVE (NEGATIVE); OPIATES URINE SCREEN PRESUMTIVE POSITIVE (NEGATIVE); PHENCYCLIDINE URINE SCREEN PRESUMTIVE POSITIVE (NEGATIVE)
[2017-08-15] MEDS ORDERED: NA PHOS,M-B/NA PHOS,DI-BA ENEMA 118ML PR PRN (09:45)
[2017-08-15] MEDS ORDERED: GUAIFENESIN 200MG/10ML SUGAR FREE UDC PO PRN (09:45)
[2017-08-15] MEDS ORDERED: ONDANSETRON HCL 4MG/2ML INJ IV PRN (09:45)
[2017-08-15] MEDS ORDERED: ACETAMINOPHEN 325MG TABLET PO PRN (09:45)
[2017-08-15] MEDS ORDERED: HYDROCODONE/ACETAMINOPHEN 5/325MG TABLET PO PRN (09:45)
[2017-08-15] MEDS ORDERED: LORAZEPAM 2MG/ML CPJ IV PRN (09:45)
[2017-08-15] MEDS ORDERED: CLONIDINE 0.1MG TABLET PO PRN (09:45)
[2017-08-15] MEDS ORDERED: DIPHENHYDRAMINE 50MG/ML VIAL IV PRN (09:45)
[2017-08-15] MEDS ORDERED: MAGNESIUM/ALUMINUM HYDROXIDE/SIMETHICONE 30ML UDC PO PRN (09:45)
[2017-08-15] MEDS ORDERED: IPRATROPIUM/ALBUTEROL 0.5-3(2.5)MG/3ML NEB INH PRN (09:45)
[2017-08-15] MEDS ORDERED: MORPHINE SULFATE 2 MG/ML CPJ (NOT FOR IM USE) IV PRN (09:45)
[2017-08-15] MEDS ORDERED: DOCUSATE SODIUM 100MG CAPSULE PO PRN (09:45)
[2017-08-15 13:15] VITALS: BP 173/81
[2017-08-15] MEDS: AMLODIPINE 5MG TABLET PO SCH ×2 (13:41→20:35)
[2017-08-15] MEDS: LISINOPRIL 10MG TABLET PO SCH ×2 (13:41→20:35)
[2017-08-15 14:45] VITALS: BP 169/73
[2017-08-15 16:00] VITALS: BP 110/57
[2017-08-15 16:14] LABS: CHLORIDE 106 mEq/L (98-107)
[2017-08-15] MEDS: FUROSEMIDE 40MG/4ML VIAL IVP SCH (17:10)
[2017-08-15] MEDS: ENOXAPARIN 40MG/0.4ML SYR SUBCUT SCH (17:11)
[2017-08-15 20:00] VITALS: BP 126/72
[2017-08-15] MEDS ORDERED: ENOXAPARIN 40MG/0.4ML SYR SUBCUT NR (20:00)
[2017-08-16] VITALS: BP 118/68
[2017-08-16 04:00] VITALS: BP 140/80
[2017-08-16] MEDS: FUROSEMIDE 40MG/4ML VIAL IVP SCH (07:00)
[2017-08-16 08:15] VITALS: BP 102/65
[2017-08-16] MEDS: ASPIRIN 81MG EC TABLET PO SCH (08:17)
[2017-08-16] MEDS: LISINOPRIL 10MG TABLET PO SCH ×2 (08:18→20:11)
[2017-08-16] MEDS: AMLODIPINE 5MG TABLET PO SCH ×2 (08:18→20:12)
[2017-08-16] MEDS: ENOXAPARIN 40MG/0.4ML SYR SUBCUT SCH (08:18)
[2017-08-16 12:00] VITALS: BP 133/79
[2017-08-16 12:14] LABS: BASOPHILS % 1.1 % (0.0-2.0); EOSINOPHILS % 3.3 % (0.0-5.0); HEMATOCRIT. 35.3 % (42.0-52.0); HEMOGLOBIN. 11.8 g/dL (14.0-18.0); LYMPHOCYTES % 20.9 % (20.0-50.0); MEAN CORPUSCULAR HEMOGLOBIN 35.2 pg (28.0-32.0); MEAN CORPUSCULAR VOLUME 105.4 fL (80.0-94.0); MEAN PLATELET VOLUME 8.5 fl (7.4-10.4); NEUTROPHILS % 64.7 % (40.0-76.0); PLATELET 248 x1000/uL (130-400); RED BLOOD CELL COUNT 3.35 mill/uL (4.7-6.1); RED CELL DISTRIBUTION WIDTH 15.4 % (11.6-14.6)
[2017-08-16 12:39] LABS: CHLORIDE 107 mEq/L (98-107); HDL CHOLESTEROL 86 mg/dL (40-59); LDL CHOLESTEROL 63 mg/dL (5-100); T4 FREE 0.97 ng/dL (0.76-1.46)
[2017-08-16] MEDS ORDERED: ENOXAPARIN 40MG/0.4ML SYR SUBCUT NR (12:45)
[2017-08-16 16:00] VITALS: BP 133/84
[2017-08-16] MEDS ORDERED: IOHEXOL-350 100 ML BOTTLE ONE (17:02)
[2017-08-16 20:00] VITALS: BP 132/80
[2017-08-16] MEDS: ENOXAPARIN 80MG/0.8ML SYR SUBCUT SCH (20:12)
[2017-08-17] VITALS: BP 127/77
[2017-08-17 04:00] VITALS: BP 127/82
[2017-08-17 07:21] LABS: EOSINOPHILS % 3.8 % (0.0-5.0); HEMOGLOBIN. 11.7 g/dL (14.0-18.0); LYMPHOCYTES % 29.9 % (20.0-50.0); MEAN CORPUSCULAR HEMOGLOBIN 35.9 pg (28.0-32.0); MEAN CORPUSCULAR VOLUME 104.1 fL (80.0-94.0); MEAN PLATELET VOLUME 8.9 fl (7.4-10.4); MONOCYTES % 8.6 % (2.0-8.0); NEUTROPHILS % 56.7 % (40.0-76.0); PLATELET 218 x1000/uL (130-400); RED BLOOD CELL COUNT 3.26 mill/uL (4.7-6.1); RED CELL DISTRIBUTION WIDTH 15.5 % (11.6-14.6)
[2017-08-17 08:00] VITALS: BP 147/74
[2017-08-17 08:23] LABS: CHLORIDE 105 mEq/L (98-107)
[2017-08-17] MEDS: ASPIRIN 81MG EC TABLET PO SCH (08:31)
[2017-08-17] MEDS: ENOXAPARIN 80MG/0.8ML SYR SUBCUT SCH (08:31)
[2017-08-17] MEDS: AMLODIPINE 5MG TABLET PO SCH (08:32)
[2017-08-17] MEDS: LISINOPRIL 10MG TABLET PO SCH (08:32)
[2017-08-17 10:08] VITALS: BP 147/74
[2017-08-23] MEDS ORDERED: LOSA50TA20 PO (17:22)
[2017-08-23] MEDS ORDERED: KEPP500 PO (17:23)
[2017-09-04] MEDS ORDERED: RIVA10TA PO (09:09)
[2017-09-15] MEDS ORDERED: ASPI-1160 PO (16:05)
[2017-11-04] MEDS ORDERED: XARELTO (18:22)
[2017-11-05] MEDS ORDERED: RIVA10TA PO (05:31)
[2017-11-20] MEDS ORDERED: FOLI-43 PO (15:03)
[2017-11-20] MEDS ORDERED: THIA100T72 PO (15:03)
[2017-11-24] MEDS ORDERED: LACT10SO7 PO (15:17)
[2017-11-24] MEDS ORDERED: LOSA50TA3 PO (15:17)
[2017-11-24] MEDS ORDERED: L25 PO (15:17)
[2017-11-24] MEDS ORDERED: AMLO5TAB88 PO (15:17)
[2018-03-04] MEDS ORDERED: CLON0.1T14 PO (00:46)
[2018-03-04] MEDS ORDERED: RIVA10TA PO (05:55)
== END 2017-08-17 11:34 | disposition home or self-care (01) | DRG 197 ==
LOC: ER 21:17 → 7WST 08-15 10:09 → MERGE 08-15 10:09 → ENRESERV 08-15 11:43
PROVIDERS: ADMIT Internal Medicine; ATTEND Internal Medicine
DX: I82.413 Acute embolism and thrombosis of femoral vein, bilateral (principal); K76.0 Fatty (change of) liver, not elsewhere classified; I82.431 Acute embolism and thrombosis of right popliteal vein; R07.89 Other chest pain; I10 Essential (primary) hypertension; F10.20 Alcohol dependence, uncomplicated; D64.9 Anemia, unspecified; F19.10 Other psychoactive substance abuse, uncomplicated; Z86.73 Personal history of transient ischemic attack (TIA), and cerebral infarction without residual deficits; Z86.711 Personal history of pulmonary embolism; Z91.14 Patient's other noncompliance with medication regimen
CPT/HCPCS: 36415; 71275; 76705; 80048; 80061; 80305; 82962; 83735; 84439; 84443; 84484; 85379; 93005; 93306; 93970; 96374; 96375; 99285; G0482; J1650; J1940; J2270; J3490; J7030; Q9967

== ENCOUNTER 2017-08-18 20:04 | Emergency (ER) | payer MEDICAID ==
[~2017-08-18] VITALS: Ht 170.2 cm; Wt 73.0 kg
[2017-08-19 05:37] VITALS: BP 144/69
[2017-08-23] MEDS ORDERED: LOSA50TA20 PO (17:22)
[2017-08-23] MEDS ORDERED: KEPP500 PO (17:23)
== END 2017-08-19 06:00 | disposition home or self-care (01) ==
LOC: ER 20:08
DX: S00.83XA Contusion of other part of head, initial encounter (principal); S01.512A Laceration without foreign body of oral cavity, initial encounter; I10 Essential (primary) hypertension; K02.9 Dental caries, unspecified; Z86.718 Personal history of other venous thrombosis and embolism; Y08.89XA Assault by other specified means, initial encounter; Y93.89 Activity, other specified; Y92.89 Other specified places as the place of occurrence of the external cause; Y99.8 Other external cause status
CPT/HCPCS: 70450; 70486; 72125; 99284; Z7610

== ENCOUNTER 2017-08-27 19:03 | Emergency (ER) | payer MEDICAID ==
[~2017-08-27] VITALS: Ht 177.8 cm; Wt 84.0 kg
[~2017-08-27 19:03] MED LIST changes: -AMLO2.5T45 PO; +KEPP500 PO; +LOSA50TA20 PO; -RIVA10TA PO
[2017-08-27] MEDS ORDERED: SODIUM CHLORIDE 0.9% 1,000 ML IV ONE (21:48)
[2017-08-27 23:04] LABS: EOSINOPHILS % 3.7 % (0.0-5.0); HEMOGLOBIN. 10.8 g/dL (14.0-18.0); LYMPHOCYTES % 36.6 % (20.0-50.0); MEAN CORPUSCULAR HEMOGLOBIN 35.5 pg (28.0-32.0); MEAN PLATELET VOLUME 7.9 fl (7.4-10.4); MONOCYTES % 13.3 % (2.0-8.0); NEUTROPHILS % 45.4 % (40.0-76.0); PLATELET 193 x1000/uL (130-400); RED BLOOD CELL COUNT 3.05 mill/uL (4.7-6.1); RED CELL DISTRIBUTION WIDTH 15.4 % (11.6-14.6)
[2017-08-27 23:25] LABS: CHLORIDE 104 mEq/L (98-107); ETHANOL BLOOD 32 mg/dL; TROPONIN I < 0.02 ng/mL (0.00-0.04)
[2017-08-28 00:44] VITALS: BP 123/74
== END 2017-08-28 00:53 | disposition home or self-care (01) ==
LOC: ER 19:03
DX: F10.129 Alcohol abuse with intoxication, unspecified (principal); R55 Syncope and collapse; E16.2 Hypoglycemia, unspecified; D53.9 Nutritional anemia, unspecified; I10 Essential (primary) hypertension; S06.5X9S Traumatic subdural hemorrhage with loss of consciousness of unspecified duration, sequela; Y90.1 Blood alcohol level of 20-39 mg/100 ml; W01.0XXA Fall on same level from slipping, tripping and stumbling without subsequent striking against object, initial encounter; Y93.89 Activity, other specified; Y92.521 Bus station as the place of occurrence of the external cause
CPT/HCPCS: 36415; 70450; 71045; 72125; 73030; 80053; 84484; 85025; 93005; 96360; 96361; 99285; G0482; J7030; A4565

== ENCOUNTER 2017-08-28 05:14 | Emergency (ER) | payer MEDICAID ==
[~2017-08-28] VITALS: Ht 182.9 cm; Wt 88.0 kg
[2017-08-28 05:35] VITALS: BP 150/87
== END 2017-08-28 09:33 | disposition left against medical advice (07) ==
LOC: ER 05:46
DX: Z53.21 Procedure and treatment not carried out due to patient leaving prior to being seen by health care provider (principal)

== ENCOUNTER 2017-08-29 20:32 | Emergency (ER) | payer MEDICAID ==
[~2017-08-29] VITALS: Ht 182.9 cm; Wt 82.0 kg
[2017-08-30] MEDS ORDERED: METOCLOPRAMIDE HCL 10MG/2ML VIAL IV STA (06:26)
[2017-08-30] MEDS ORDERED: MAGNESIUM/ALUMINUM HYDROXIDE/SIMETHICONE 30ML UDC PO STA (06:26)
[2017-08-30] MEDS ORDERED: VISCOUS LIDOCAINE 2% 15 ML UDC PO STA (06:26)
[2017-08-30] MEDS ORDERED: DICYCLOMINE 10 MG/5 ML ORAL SYR PO STA (06:26)
[2017-08-30] MEDS ORDERED: ONDANSETRON HCL 4MG/2ML VIAL IV STA (06:26)
[2017-08-30] MEDS ORDERED: FAMOTIDINE 20MG TABLET PO ONE (06:45)
[2017-08-30] MEDS ORDERED: ONDANSETRON 4MG ODT PO ONE (06:45)
[2017-08-30] MEDS ORDERED: ASPIRIN 325MG EC TABLET PO ONE (07:30)
[2017-08-30 12:46] LABS: BASOPHILS % 0.6 % (0.0-2.0); EOSINOPHILS % 2.9 % (0.0-5.0); HEMATOCRIT. 32.9 % (42.0-52.0); HEMOGLOBIN. 10.8 g/dL (14.0-18.0); LYMPHOCYTES % 24.2 % (20.0-50.0); MEAN CORPUSCULAR HEMOGLOBIN 34.7 pg (28.0-32.0); MEAN CORPUSCULAR VOLUME 105.9 fL (80.0-94.0); MONOCYTES % 11.4 % (2.0-8.0); NEUTROPHILS % 60.9 % (40.0-76.0); PLATELET 210 x1000/uL (130-400); RED BLOOD CELL COUNT 3.11 mill/uL (4.7-6.1); RED CELL DISTRIBUTION WIDTH 15.1 % (11.6-14.6)
[2017-08-30 12:52] LABS: INR 1.1; PARTIAL THROMBOPLASTIN TIME 26.1 sec (23.4-31.0); PROTHROMBIN TIME 11.1 sec (9.4-11.6)
[2017-08-30 12:57] LABS: CHLORIDE 110 mEq/L (98-107)
[2017-08-30 13:16] VITALS: BP 113/78
[2017-09-04] MEDS ORDERED: RIVA10TA PO (09:09)
[2017-09-15] MEDS ORDERED: ASPI-1160 PO (16:05)
== END 2017-08-30 13:35 | disposition home or self-care (01) ==
LOC: ER 21:17
DX: R07.89 Other chest pain (principal); R10.11 Right upper quadrant pain; E11.9 Type 2 diabetes mellitus without complications; I10 Essential (primary) hypertension
CPT/HCPCS: 36415; 80053; 83690; 84484; 85025; 85610; 85730; 93005; 99285; Q0162; Z7610; A4565

== ENCOUNTER 2017-08-31 04:04 | Emergency (ER) | payer MEDICAID, OTHER ==
[~2017-08-31] VITALS: Ht 185.4 cm; Wt 89.0 kg
[2017-08-31 04:32] VITALS: BP 140/65
[2017-08-31 06:08] LABS: BASOPHILS % 0.6 % (0.0-2.0); EOSINOPHILS % 1.8 % (0.0-5.0); HEMATOCRIT. 32.5 % (42.0-52.0); HEMOGLOBIN. 10.6 g/dL (14.0-18.0); LYMPHOCYTES % 25.3 % (20.0-50.0); MEAN CORPUSCULAR HEMOGLOBIN 34.6 pg (28.0-32.0); MEAN CORPUSCULAR VOLUME 106.2 fL (80.0-94.0); MEAN PLATELET VOLUME 8.1 fl (7.4-10.4); MONOCYTES % 10.3 % (2.0-8.0); PLATELET 197 x1000/uL (130-400); RED BLOOD CELL COUNT 3.06 mill/uL (4.7-6.1); RED CELL DISTRIBUTION WIDTH 15.1 % (11.6-14.6)
[2017-08-31 06:14] LABS: INR 1.1
[2017-08-31 06:18] LABS: CHLORIDE 106 mEq/L (98-107); ETHANOL BLOOD < 10 mg/dL
[2017-08-31] MEDS ORDERED: FAMOTIDINE 20MG/2ML VIAL IV ONE (06:30)
[2017-08-31] MEDS ORDERED: FAMOTIDINE 20MG TABLET PO ONE (07:00)
== END 2017-08-31 07:15 | disposition home or self-care (01) ==
LOC: ER 04:04
DX: R10.13 Epigastric pain (principal); I10 Essential (primary) hypertension; F17.200 Nicotine dependence, unspecified, uncomplicated
CPT/HCPCS: 36415; 80053; 83690; 85025; 85610; 93005; 99285; G0482

== ENCOUNTER 2017-09-06 16:33 | Emergency (ER) | payer MEDICAID ==
[~2017-09-06] VITALS: Ht 182.9 cm; Wt 85.0 kg
[~2017-09-06 16:33] MED LIST changes: +RIVA10TA PO
[2017-09-06 17:40] LABS: BASOPHILS % 0.5 % (0.0-2.0); CHLORIDE 106 mEq/L (98-107); EOSINOPHILS % 0.6 % (0.0-5.0); HEMATOCRIT. 35.7 % (42.0-52.0); HEMOGLOBIN. 11.8 g/dL (14.0-18.0); LYMPHOCYTES % 15.4 % (20.0-50.0); MEAN CORPUSCULAR HEMOGLOBIN 35.1 pg (28.0-32.0); MEAN CORPUSCULAR VOLUME 105.8 fL (80.0-94.0); MEAN PLATELET VOLUME 8.4 fl (7.4-10.4); MONOCYTES % 7.5 % (2.0-8.0); PLATELET 231 x1000/uL (130-400); RED BLOOD CELL COUNT 3.38 mill/uL (4.7-6.1); RED CELL DISTRIBUTION WIDTH 15.2 % (11.6-14.6)
[2017-09-06 17:45] LABS: ETHANOL BLOOD < 10 mg/dL; PROTHROMBIN TIME 10.6 sec (9.4-11.6)
[2017-09-06] MEDS ORDERED: CHLORDIAZEPOXIDE 25MG CAPSULE PO ONE (20:15)
[2017-09-06] MEDS ORDERED: MAGNESIUM/ALUMINUM HYDROXIDE/SIMETHICONE 30ML UDC PO ONE (20:15)
[2017-09-06] MEDS ORDERED: IBUPROFEN 600MG TABLET PO ONE (22:00)
[2017-09-06 22:30] VITALS: BP 151/91
[2017-09-15] MEDS ORDERED: ASPI-1160 PO (16:05)
== END 2017-09-06 22:30 | disposition home or self-care (01) ==
LOC: ER 16:44
DX: R07.89 Other chest pain (principal); R51 Headache; I49.1 Atrial premature depolarization; F17.210 Nicotine dependence, cigarettes, uncomplicated; F10.10 Alcohol abuse, uncomplicated; Y90.0 Blood alcohol level of less than 20 mg/100 ml; Z86.718 Personal history of other venous thrombosis and embolism; Z79.01 Long term (current) use of anticoagulants
CPT/HCPCS: 36415; 70450; 71045; 80053; 84484; 85025; 85610; 93005; 99285; G0482; Z7610

== ENCOUNTER 2017-09-07 01:24 | Emergency (ER) | payer MEDICAID ==
[~2017-09-07] VITALS: Ht 182.9 cm; Wt 88.0 kg
[~2017-09-07 01:24] MED LIST changes: -RIVA10TA PO
[2017-09-07] MEDS ORDERED: KETOROLAC 60MG/2ML VIAL IM ONE (03:45)
[2017-09-07 06:31] VITALS: BP 132/80
== END 2017-09-07 06:30 | disposition home or self-care (01) ==
LOC: ER 01:24
DX: M25.551 Pain in right hip (principal); I10 Essential (primary) hypertension; F17.200 Nicotine dependence, unspecified, uncomplicated; Z86.718 Personal history of other venous thrombosis and embolism; W01.0XXA Fall on same level from slipping, tripping and stumbling without subsequent striking against object, initial encounter; Y93.89 Activity, other specified; Y92.89 Other specified places as the place of occurrence of the external cause; Y99.8 Other external cause status
CPT/HCPCS: 73502; 96372; 99284; J1885; Z7610

== ENCOUNTER 2017-09-07 22:01 | Emergency (ER) | payer MEDICAID ==
[~2017-09-07] VITALS: Ht 182.9 cm; Wt 88.0 kg
[2017-09-07 22:19] VITALS: BP 111/78
[2017-09-08 05:06] LABS: BASOPHILS % 0.4 % (0.0-2.0); EOSINOPHILS % 4.1 % (0.0-5.0); HEMOGLOBIN. 10.7 g/dL (14.0-18.0); LYMPHOCYTES % 24.5 % (20.0-50.0); MEAN CORPUSCULAR HEMOGLOBIN 34.4 pg (28.0-32.0); MEAN CORPUSCULAR VOLUME 106.2 fL (80.0-94.0); MEAN PLATELET VOLUME 8.1 fl (7.4-10.4); MONOCYTES % 10.8 % (2.0-8.0); NEUTROPHILS % 60.2 % (40.0-76.0); PLATELET 209 x1000/uL (130-400); RED BLOOD CELL COUNT 3.11 mill/uL (4.7-6.1); RED CELL DISTRIBUTION WIDTH 15.1 % (11.6-14.6)
[2017-09-08 05:17] LABS: CHLORIDE 108 mEq/L (98-107); PARTIAL THROMBOPLASTIN TIME 26.4 sec (23.4-31.0); PROTHROMBIN TIME 10.7 sec (9.4-11.6)
== END 2017-09-08 06:07 | disposition home or self-care (01) ==
LOC: ER 23:24
DX: R42 Dizziness and giddiness (principal); I10 Essential (primary) hypertension; Z86.718 Personal history of other venous thrombosis and embolism; R79.1 Abnormal coagulation profile
CPT/HCPCS: 36415; 70450; 80053; 85025; 85610; 85730; 99285

== ENCOUNTER 2017-09-12 18:33 | Emergency (ER) | payer MEDICAID ==
[~2017-09-12] VITALS: Ht 175.3 cm; Wt 80.0 kg
[2017-09-12 18:37] VITALS: BP 132/80
[2017-09-12] MEDS ORDERED: ASPIRIN 81MG TABLET PO STA (22:41)
[2017-09-12] MEDS ORDERED: NITROGLYCERIN 0.4MG TABLET SL SL PRN (22:45)
[2017-09-15] MEDS ORDERED: ASPI-1160 PO (16:05)
== END 2017-09-12 23:46 | disposition left against medical advice (07) ==
LOC: ER 19:39 → CANBEDREQ 09-13 02:33
DX: R07.89 Other chest pain (principal); I10 Essential (primary) hypertension; Z86.718 Personal history of other venous thrombosis and embolism; Z79.01 Long term (current) use of anticoagulants
CPT/HCPCS: 71045; 93005; 99284; Z7610

== ENCOUNTER 2017-09-13 01:57 | Emergency (ER) | payer MEDICAID ==
[~2017-09-13] VITALS: Ht 172.7 cm; Wt 72.0 kg
[2017-09-13 02:06] VITALS: BP 148/82
[2017-09-15] MEDS ORDERED: ASPI-1160 PO (16:05)
== END 2017-09-13 09:00 | disposition left against medical advice (07) ==
LOC: ER 01:57
DX: Z53.21 Procedure and treatment not carried out due to patient leaving prior to being seen by health care provider (principal)

== ENCOUNTER 2017-09-16 00:06 | Emergency (ER) | payer MEDICAID ==
[~2017-09-16] VITALS: Ht 182.9 cm; Wt 89.0 kg
[~2017-09-16 00:06] MED LIST changes: +ASPI-1160 PO
[2017-09-16] MEDS ORDERED: KETOROLAC 60MG/2ML VIAL IM ONE (02:00)
[2017-09-16 02:19] VITALS: BP 135/83
== END 2017-09-16 03:10 | disposition home or self-care (01) ==
LOC: ER 00:06
DX: G89.29 Other chronic pain (principal); M54.5 Low back pain; I10 Essential (primary) hypertension; F17.200 Nicotine dependence, unspecified, uncomplicated
CPT/HCPCS: 96372; 99283; J1885

== ENCOUNTER 2017-09-16 05:55 | Emergency (ER) | payer MEDICAID | END 2017-09-16 07:41 | disposition left against medical advice (07) | LOC: ER 05:55 | DX: R07.9 Chest pain, unspecified (principal); Z53.21 Procedure and treatment not carried out due to patient leaving prior to being seen by health care provider ==

== ENCOUNTER 2017-09-16 21:08 | Emergency (ER) | payer MEDICAID ==
[~2017-09-16] VITALS: Ht 182.9 cm; Wt 77.0 kg
[~2017-09-16 21:08] MED LIST changes: -ASPI-1160 PO; -KEPP500 PO
[2017-09-16] MEDS ORDERED: ACETAMINOPHEN 325MG TABLET PO ONE (23:00)
[2017-09-17] MEDS ORDERED: IBUPROFEN 600MG TABLET PO ONE (01:45)
[2017-09-17 06:35] VITALS: BP 181/96
== END 2017-09-17 06:45 | disposition home or self-care (01) ==
LOC: ER 21:18
DX: S09.90XA Unspecified injury of head, initial encounter (principal); Y09 Assault by unspecified means; I10 Essential (primary) hypertension; E11.9 Type 2 diabetes mellitus without complications; Y93.89 Activity, other specified; F10.129 Alcohol abuse with intoxication, unspecified; Y92.89 Other specified places as the place of occurrence of the external cause; Y99.8 Other external cause status
CPT/HCPCS: 36415; 70450; 70486; 71045; 72125; 72170; 73030; 82962; 99285; G0482

== ENCOUNTER 2017-09-21 23:00 | Emergency (ER) | payer MEDICAID ==
[~2017-09-21] VITALS: Ht 182.9 cm; Wt 89.0 kg
[2017-09-21] MEDS ORDERED: MAGNESIUM/ALUMINUM HYDROXIDE/SIMETHICONE 30ML UDC PO STA (23:42)
[2017-09-21] MEDS ORDERED: VISCOUS LIDOCAINE 2% 15 ML UDC PO STA (23:42)
[2017-09-22 00:16] LABS: BASOPHILS % 0.5 % (0.0-2.0); EOSINOPHILS % 2.5 % (0.0-5.0); HEMATOCRIT. 34.6 % (42.0-52.0); LYMPHOCYTES % 20.3 % (20.0-50.0); MEAN CORPUSCULAR HEMOGLOBIN 35.9 pg (28.0-32.0); MEAN CORPUSCULAR VOLUME 103.8 fL (80.0-94.0); MEAN PLATELET VOLUME 8.3 fl (7.4-10.4); MONOCYTES % 8.8 % (2.0-8.0); NEUTROPHILS % 67.9 % (40.0-76.0); PLATELET 228 x1000/uL (130-400); RED BLOOD CELL COUNT 3.33 mill/uL (4.7-6.1); RED CELL DISTRIBUTION WIDTH 14.4 % (11.6-14.6)
[2017-09-22 00:22] LABS: CHLORIDE 107 mEq/L (98-107)
[2017-09-22 03:33] VITALS: BP 145/82
== END 2017-09-22 03:36 | disposition home or self-care (01) ==
LOC: MERGE 23:00 → ER 23:00
DX: R07.89 Other chest pain (principal); F10.10 Alcohol abuse, uncomplicated; I10 Essential (primary) hypertension; E11.9 Type 2 diabetes mellitus without complications; F17.200 Nicotine dependence, unspecified, uncomplicated; Z86.718 Personal history of other venous thrombosis and embolism; Y90.9 Presence of alcohol in blood, level not specified
CPT/HCPCS: 36415; 71045; 80048; 83690; 84484; 85025; 93005; 99285

== ENCOUNTER 2017-09-22 23:57 | Emergency (ER) | payer MEDICAID ==
[~2017-09-22] VITALS: Ht 182.9 cm; Wt 89.5 kg
[2017-09-23] VITALS: BP 180/95
== END 2017-09-23 06:00 | disposition left against medical advice (07) ==
LOC: ER 23:57
DX: M54.5 Low back pain (principal); Z53.21 Procedure and treatment not carried out due to patient leaving prior to being seen by health care provider

== ENCOUNTER 2017-09-23 07:10 | Emergency (ER) | payer MEDICAID ==
[~2017-09-23] VITALS: Ht 182.9 cm; Wt 89.0 kg
[2017-09-23 07:31] VITALS: BP 189/90
== END 2017-09-23 08:49 | disposition left against medical advice (07) ==
LOC: ER 07:57
DX: R51 Headache (principal); M54.5 Low back pain; Z53.21 Procedure and treatment not carried out due to patient leaving prior to being seen by health care provider

== ENCOUNTER 2017-09-23 19:26 | Emergency (ER) | payer MEDICAID ==
[~2017-09-23] VITALS: Ht 182.9 cm; Wt 89.5 kg
[2017-09-24 02:47] LABS: CHLORIDE 109 mEq/L (98-107); ETHANOL BLOOD 43 mg/dL
[2017-09-24 03:07] LABS: BASOPHILS % 0.8 % (0.0-2.0); EOSINOPHILS % 3.7 % (0.0-5.0); HEMATOCRIT. 35.7 % (42.0-52.0); HEMOGLOBIN. 11.9 g/dL (14.0-18.0); LYMPHOCYTES % 36.5 % (20.0-50.0); MEAN CORPUSCULAR VOLUME 105.1 fL (80.0-94.0); MEAN PLATELET VOLUME 8.1 fl (7.4-10.4); MONOCYTES % 7.2 % (2.0-8.0); NEUTROPHILS % 51.8 % (40.0-76.0); PLATELET 229 x1000/uL (130-400); RED CELL DISTRIBUTION WIDTH 14.3 % (11.6-14.6)
[2017-09-24 03:10] LABS: PROTHROMBIN TIME 10.6 sec (9.4-11.6)
[2017-09-24] MEDS ORDERED: PHENYTOIN SODIUM EXTENDED 100MG CAPSULE PO ONE ×2 (03:45→04:45)
[2017-09-24 06:57] VITALS: BP 158/93
== END 2017-09-24 07:16 | disposition home or self-care (01) ==
LOC: ER 20:12
DX: R07.9 Chest pain, unspecified (principal); R56.9 Unspecified convulsions; I10 Essential (primary) hypertension; F17.200 Nicotine dependence, unspecified, uncomplicated
CPT/HCPCS: 36415; 71045; 80053; 80185; 84484; 85025; 85610; 93005; 99285; G0482; Z7610

== ENCOUNTER 2017-10-12 16:34 | Emergency (ER) | payer OTHER, MEDICAID ==
[~2017-10-12] VITALS: Ht 182.9 cm; Wt 86.0 kg
[2017-10-12 19:33] LABS: BASOPHILS % 0.6 % (0.0-2.0); EOSINOPHILS % 0.6 % (0.0-5.0); HEMATOCRIT. 37.6 % (42.0-52.0); HEMOGLOBIN. 12.7 g/dL (14.0-18.0); LYMPHOCYTES % 16.8 % (20.0-50.0); MEAN CORPUSCULAR HEMOGLOBIN 34.5 pg (28.0-32.0); MEAN CORPUSCULAR VOLUME 102.4 fL (80.0-94.0); MONOCYTES % 4.9 % (2.0-8.0); NEUTROPHILS % 77.1 % (40.0-76.0); PLATELET 269 x1000/uL (130-400); RED BLOOD CELL COUNT 3.67 mill/uL (4.7-6.1); RED CELL DISTRIBUTION WIDTH 14.8 % (11.6-14.6)
[2017-10-12 19:38] LABS: CHLORIDE 103 mEq/L (98-107)
[2017-10-12 19:40] LABS: INR 1.1; PROTHROMBIN TIME 11.2 sec (9.4-11.6)
[2017-10-12 19:42] LABS: ETHANOL BLOOD < 10 mg/dL
[2017-10-13 06:36] VITALS: BP 164/67
[2017-11-04] MEDS ORDERED: XARELTO (18:22)
[2017-11-05] MEDS ORDERED: RIVA10TA PO (05:31)
[2017-11-20] MEDS ORDERED: FOLI-43 PO (15:03)
[2017-11-20] MEDS ORDERED: THIA100T72 PO (15:03)
== END 2017-10-13 06:37 | disposition home or self-care (01) ==
LOC: ER 16:34
DX: S06.0X9A Concussion with loss of consciousness of unspecified duration, initial encounter (principal); S10.93XA Contusion of unspecified part of neck, initial encounter; I10 Essential (primary) hypertension; F17.200 Nicotine dependence, unspecified, uncomplicated; W19.XXXA Unspecified fall, initial encounter; Y93.01 Activity, walking, marching and hiking; Y92.89 Other specified places as the place of occurrence of the external cause; Y99.2 Volunteer activity
CPT/HCPCS: 36415; 70450; 71045; 72125; 80053; 84484; 85025; 85610; 93005; 99285; G0482

== ENCOUNTER 2017-10-20 20:24 | Emergency (ER) | payer OTHER ==
[~2017-10-20] VITALS: Ht 180.3 cm; Wt 90.0 kg
[2017-10-20 23:08] LABS: BASOPHILS % 0.6 % (0.0-2.0); EOSINOPHILS % 1.2 % (0.0-5.0); HEMATOCRIT. 37.3 % (42.0-52.0); HEMOGLOBIN. 12.5 g/dL (14.0-18.0); LYMPHOCYTES % 20.2 % (20.0-50.0); MEAN CORPUSCULAR HEMOGLOBIN 34.1 pg (28.0-32.0); MEAN CORPUSCULAR VOLUME 102.1 fL (80.0-94.0); MEAN PLATELET VOLUME 8.2 fl (7.4-10.4); MONOCYTES % 7.9 % (2.0-8.0); NEUTROPHILS % 70.1 % (40.0-76.0); PLATELET 193 x1000/uL (130-400); RED BLOOD CELL COUNT 3.66 mill/uL (4.7-6.1); RED CELL DISTRIBUTION WIDTH 15.1 % (11.6-14.6)
[2017-10-20 23:14] LABS: CHLORIDE 105 mEq/L (98-107)
[2017-10-20 23:18] LABS: INR 1.1; PROTHROMBIN TIME 11.1 sec (9.4-11.6)
[2017-10-20 23:30] LABS: CLARITY URINE CLEAR (CLEAR); COLOR URINE DARK YELLOW (YELLOW); KETONES URINE TRACE (NEGATIVE); LEUKOCYTE ESTERASE URINE 1+ (NEGATIVE); NITRITE URINE NEGATIVE (NEGATIVE); OCCULT BLOOD URINE NEGATIVE (NEGATIVE); PROTEIN URINE 1+ (NEGATIVE); SPECIFIC GRAVITY URINE 1.031 (1.005-1.030)
[2017-10-21] MEDS ORDERED: ENOXAPARIN 100MG/ML SYR SUBCUT SCH (02:19)
[2017-10-21 10:20] VITALS: BP 177/97
== END 2017-10-21 11:47 | disposition left against medical advice (07) ==
LOC: ER 21:03 → EDBEDREQ 10-21 02:38 → ENRESERV 10-21 10:06 → CANRESERV 10-21 10:06 → CANBEDREQ 10-21 11:35 → ER 10-21 11:47
DX: I24.9 Acute ischemic heart disease, unspecified (principal); R06.02 Shortness of breath; F17.210 Nicotine dependence, cigarettes, uncomplicated; E78.00 Pure hypercholesterolemia, unspecified; I10 Essential (primary) hypertension
CPT/HCPCS: 36415; 71045; 80053; 81003; 83690; 83880; 84484; 85025; 85610; 85730; 87086; 93005; 96372; 99285; J1650; Z7610

== ENCOUNTER 2017-10-31 00:22 | Emergency (ER) | payer MEDICAID, OTHER ==
[~2017-10-31] VITALS: Ht 177.8 cm; Wt 86.3 kg
[2017-10-31 06:42] VITALS: BP 150/74
[2017-10-31] MEDS ORDERED: IBUPROFEN 600MG TABLET PO ONE (06:45)
[2017-10-31 07:04] LABS: EOSINOPHILS % 1.8 % (0.0-5.0); HEMATOCRIT. 40.6 % (42.0-52.0); HEMOGLOBIN. 13.9 g/dL (14.0-18.0); LYMPHOCYTES % 27.5 % (20.0-50.0); MEAN CORPUSCULAR VOLUME 102.1 fL (80.0-94.0); MEAN PLATELET VOLUME 8.1 fl (7.4-10.4); MONOCYTES % 5.9 % (2.0-8.0); NEUTROPHILS % 63.8 % (40.0-76.0); PLATELET 203 x1000/uL (130-400); RED BLOOD CELL COUNT 3.98 mill/uL (4.7-6.1); RED CELL DISTRIBUTION WIDTH 15.4 % (11.6-14.6)
[2017-10-31 07:12] LABS: CHLORIDE 106 mEq/L (98-107)
[2017-10-31 07:14] LABS: ETHANOL BLOOD 142 mg/dL
[2017-11-04] MEDS ORDERED: XARELTO (18:22)
[2017-11-05] MEDS ORDERED: RIVA10TA PO (05:31)
== END 2017-10-31 08:37 | disposition home or self-care (01) ==
LOC: ER 00:22
DX: F10.129 Alcohol abuse with intoxication, unspecified (principal); I10 Essential (primary) hypertension; F17.200 Nicotine dependence, unspecified, uncomplicated
CPT/HCPCS: 36415; 80053; 85025; 99284; G0482; Z7610

== ENCOUNTER 2017-11-08 22:11 | Emergency (ER) | payer MEDICAID ==
[~2017-11-08] VITALS: Ht 177.8 cm; Wt 82.0 kg
[~2017-11-08 22:11] MED LIST changes: +RIVA10TA PO
[2017-11-08 22:12] VITALS: BP 140/88
[2017-11-08] MEDS ORDERED: SODIUM CHLORIDE 0.9% 1,000 ML IV ONE (22:26)
[2017-11-08] MEDS ORDERED: ACETAMINOPHEN 325MG TABLET PO STA (22:26)
[2017-11-08 22:49] LABS: BASOPHILS % 0.3 % (0.0-2.0); EOSINOPHILS % 0.8 % (0.0-5.0); HEMATOCRIT. 37.4 % (42.0-52.0); LYMPHOCYTES % 21.2 % (20.0-50.0); MEAN CORPUSCULAR HEMOGLOBIN 35.3 pg (28.0-32.0); MEAN PLATELET VOLUME 8.1 fl (7.4-10.4); NEUTROPHILS % 69.7 % (40.0-76.0); PLATELET 149 x1000/uL (130-400); RED BLOOD CELL COUNT 3.67 mill/uL (4.7-6.1); RED CELL DISTRIBUTION WIDTH 15.5 % (11.6-14.6)
[2017-11-08 22:53] LABS: CHLORIDE 100 mEq/L (98-107); PROTHROMBIN TIME 10.5 sec (9.4-11.6)
[2017-11-08 22:57] LABS: ETHANOL BLOOD 84 mg/dL
== END 2017-11-08 23:40 | disposition left against medical advice (07) ==
LOC: ER 22:33
DX: R07.89 Other chest pain (principal); E86.0 Dehydration; F10.20 Alcohol dependence, uncomplicated; I10 Essential (primary) hypertension; Y90.4 Blood alcohol level of 80-99 mg/100 ml; Z86.718 Personal history of other venous thrombosis and embolism; Z79.01 Long term (current) use of anticoagulants
CPT/HCPCS: 36415; 71045; 80053; 83690; 84484; 85025; 85610; 93005; 99285; G0482; J7030

== ENCOUNTER 2017-11-11 15:38 | Emergency (ER) | payer MEDICAID, OTHER ==
[~2017-11-11] VITALS: Ht 177.8 cm; Wt 82.0 kg
[2017-11-11] MEDS ORDERED: SODIUM CHLORIDE 0.9% 1,000 ML IV ONE (17:30)
[2017-11-11 17:41] LABS: CHLORIDE 104 mEq/L (98-107)
[2017-11-11 17:42] LABS: BASOPHILS % 0.3 % (0.0-2.0); HEMOGLOBIN. 11.6 g/dL (14.0-18.0); LYMPHOCYTES % 31.6 % (20.0-50.0); MEAN CORPUSCULAR HEMOGLOBIN 34.2 pg (28.0-32.0); MEAN CORPUSCULAR VOLUME 103.1 fL (80.0-94.0); MEAN PLATELET VOLUME 9.3 fl (7.4-10.4); MONOCYTES % 9.3 % (2.0-8.0); NEUTROPHILS % 57.8 % (40.0-76.0); PLATELET 199 x1000/uL (130-400); RED CELL DISTRIBUTION WIDTH 16.1 % (11.6-14.6)
[2017-11-11 17:45] LABS: ETHANOL BLOOD 125 mg/dL
[2017-11-11 18:02] LABS: CLARITY URINE CLOUDY (CLEAR); COLOR URINE DARK YELLOW (YELLOW); KETONES URINE 1+ (NEGATIVE); LEUKOCYTE ESTERASE URINE TRACE (NEGATIVE); NITRITE URINE NEGATIVE (NEGATIVE); OCCULT BLOOD URINE NEGATIVE (NEGATIVE); PROTEIN URINE 1+ (NEGATIVE); SPECIFIC GRAVITY URINE 1.026 (1.005-1.030)
[2017-11-11 18:09] LABS: *AMPHETAMINES SCREEN URINE NEGATIVE (NEGATIVE); *BARBITURATES SCREEN URINE NEGATIVE (NEGATIVE); *BENZODIAZEPINES SCREEN URINE NEGATIVE (NEGATIVE); *COCAINE SCREEN URINE NEGATIVE (NEGATIVE); METHADONE URINE SCREEN NEGATIVE (NEGATIVE); OPIATES URINE SCREEN NEGATIVE (NEGATIVE)
[2017-11-11 18:10] LABS: CANNABINOID URINE SCREEN NEGATIVE (NEGATIVE); PHENCYCLIDINE URINE SCREEN PRESUMTIVE POSITIVE (NEGATIVE)
[2017-11-11 20:00] VITALS: BP 158/99
[2017-11-11] MEDS ORDERED: CEFTRIAXONE 1 G PREMIX 50 ML IV ONE (23:00)
== END 2017-11-11 23:22 | disposition home or self-care (01) ==
LOC: ER 15:38
DX: F16.10 Hallucinogen abuse, uncomplicated (principal); E88.09 Other disorders of plasma-protein metabolism, not elsewhere classified; E16.2 Hypoglycemia, unspecified; N17.9 Acute kidney failure, unspecified; D53.9 Nutritional anemia, unspecified; F10.229 Alcohol dependence with intoxication, unspecified; F19.10 Other psychoactive substance abuse, uncomplicated; Z86.718 Personal history of other venous thrombosis and embolism; Y90.6 Blood alcohol level of 120-199 mg/100 ml
CPT/HCPCS: 36415; 70450; 71045; 80053; 80305; 80307; 80329; 81003; 85025; 93005; 96360; 96361; 99285; G0482; J7030; Z7610

== ENCOUNTER 2017-11-16 20:12 | Emergency (ER) | payer MEDICAID, OTHER ==
[~2017-11-16] VITALS: Ht 182.9 cm; Wt 85.0 kg
[2017-11-17] MEDS ORDERED: HYDROCODONE/ACETAMINOPHEN 5/325MG TABLET PO ONE (01:00)
[2017-11-17 01:40] LABS: BASOPHILS % 0.7 % (0.0-2.0); EOSINOPHILS % 2.4 % (0.0-5.0); HEMATOCRIT. 35.6 % (42.0-52.0); LYMPHOCYTES % 28.8 % (20.0-50.0); MEAN CORPUSCULAR HEMOGLOBIN 34.9 pg (28.0-32.0); MEAN CORPUSCULAR VOLUME 103.5 fL (80.0-94.0); MEAN PLATELET VOLUME 7.7 fl (7.4-10.4); MONOCYTES % 9.4 % (2.0-8.0); NEUTROPHILS % 58.7 % (40.0-76.0); PLATELET 188 x1000/uL (130-400); RED BLOOD CELL COUNT 3.44 mill/uL (4.7-6.1); RED CELL DISTRIBUTION WIDTH 16.1 % (11.6-14.6)
[2017-11-17 01:46] LABS: CHLORIDE 104 mEq/L (98-107)
[2017-11-17 04:20] VITALS: BP 130/75
[2017-11-20] MEDS ORDERED: FOLI-43 PO (15:03)
[2017-11-20] MEDS ORDERED: THIA100T72 PO (15:03)
== END 2017-11-17 04:20 | disposition home or self-care (01) ==
LOC: ER 20:12
DX: R42 Dizziness and giddiness (principal); R51 Headache; R07.9 Chest pain, unspecified; F17.200 Nicotine dependence, unspecified, uncomplicated; I10 Essential (primary) hypertension; F12.10 Cannabis abuse, uncomplicated; Z86.718 Personal history of other venous thrombosis and embolism; Z98.890 Other specified postprocedural states
CPT/HCPCS: 36415; 70450; 71045; 80053; 84484; 85025; 93005; 99285

== ENCOUNTER 2018-02-23 21:00 | Emergency (ER) | payer MEDICAID ==
[~2018-02-23] VITALS: Ht 185.4 cm; Wt 89.0 kg
[~2018-02-23 21:00] MED LIST changes: +AMLO5TAB88 PO; -CLON0.3T PO; +FOLI-43 PO; +L25 PO; +LACT10SO7 PO; -LOSA50TA20 PO; +LOSA50TA3 PO; -RIVA10TA PO; +THIA100T72 PO
[2018-02-24] MEDS ORDERED: ONDANSETRON HCL 4MG/2ML VIAL IV STA (00:55)
[2018-02-24] MEDS ORDERED: MORPHINE SULFATE 4 MG/ML CPJ (NOT FOR IM USE) IV STA (00:55)
[2018-02-24 01:42] LABS: BASOPHILS % 0.6 % (0.0-2.0); HEMATOCRIT. 39.7 % (42.0-52.0); HEMOGLOBIN. 13.4 g/dL (14.0-18.0); LYMPHOCYTES % 32.4 % (20.0-50.0); MEAN CORPUSCULAR HEMOGLOBIN 35.7 pg (28.0-32.0); MEAN CORPUSCULAR VOLUME 105.9 fL (80.0-94.0); MEAN PLATELET VOLUME 8.5 fl (7.4-10.4); MONOCYTES % 8.8 % (2.0-8.0); NEUTROPHILS % 56.2 % (40.0-76.0); PLATELET 132 x1000/uL (130-400); RED BLOOD CELL COUNT 3.75 mill/uL (4.7-6.1)
[2018-02-24 01:47] LABS: CHLORIDE 106 mEq/L (98-107)
[2018-02-24 04:39] VITALS: BP 144/88
== END 2018-02-24 04:45 | disposition home or self-care (01) ==
LOC: ER 21:00
DX: R07.9 Chest pain, unspecified (principal); I10 Essential (primary) hypertension; R42 Dizziness and giddiness; F17.200 Nicotine dependence, unspecified, uncomplicated; Z79.899 Other long term (current) drug therapy
CPT/HCPCS: 36415; 71045; 80048; 83880; 84484; 85025; 93005; 96374; 96375; 99285; J2270; J2405; Z7610

== ENCOUNTER 2018-03-07 02:01 | Emergency (ER) | payer MEDICAID ==
[~2018-03-07] VITALS: Ht 180.3 cm; Wt 81.0 kg
[~2018-03-07 02:01] MED LIST changes: +CLON0.1T14 PO; +RIVA10TA PO
[2018-03-07 06:45] VITALS: BP 154/70
== END 2018-03-07 07:01 | disposition home or self-care (01) ==
LOC: ER 02:01
DX: F10.10 Alcohol abuse, uncomplicated (principal); I10 Essential (primary) hypertension; E78.00 Pure hypercholesterolemia, unspecified; Z79.899 Other long term (current) drug therapy
CPT/HCPCS: 99283; Z7610

== ENCOUNTER 2018-03-12 19:30 | Emergency (ER) | payer MEDICAID ==
[~2018-03-12] VITALS: Ht 185.4 cm; Wt 86.5 kg
[2018-03-12] MEDS ORDERED: NITROGLYCERIN 0.4MG TABLET SL SL PRN (20:00)
[2018-03-12] MEDS ORDERED: ASPIRIN 81MG TABLET PO ONE (20:00)
[2018-03-12 21:00] LABS: BASOPHILS % 0.5 % (0.0-2.0); EOSINOPHILS % 2.2 % (0.0-5.0); HEMATOCRIT. 38.1 % (42.0-52.0); HEMOGLOBIN. 12.9 g/dL (14.0-18.0); LYMPHOCYTES % 24.3 % (20.0-50.0); MEAN CORPUSCULAR HEMOGLOBIN 35.6 pg (28.0-32.0); MEAN CORPUSCULAR VOLUME 104.8 fL (80.0-94.0); MEAN PLATELET VOLUME 8.4 fl (7.4-10.4); MONOCYTES % 7.3 % (2.0-8.0); NEUTROPHILS % 65.7 % (40.0-76.0); PLATELET 183 x1000/uL (130-400); RED BLOOD CELL COUNT 3.64 mill/uL (4.7-6.1); RED CELL DISTRIBUTION WIDTH 14.5 % (11.6-14.6)
[2018-03-12 21:06] LABS: CHLORIDE 106 mEq/L (98-107)
[2018-03-12 21:08] LABS: PROTHROMBIN TIME 10.4 sec (9.1-11.1)
[2018-03-12 21:11] LABS: ETHANOL BLOOD < 10 mg/dL
[2018-03-12 21:18] LABS: *BARBITURATES SCREEN URINE NEGATIVE (NEGATIVE); *BENZODIAZEPINES SCREEN URINE PRESUMTIVE POSITIVE (NEGATIVE)
[2018-03-12 21:19] LABS: *AMPHETAMINES SCREEN URINE NEGATIVE (NEGATIVE); *COCAINE SCREEN URINE NEGATIVE (NEGATIVE); CANNABINOID URINE SCREEN NEGATIVE (NEGATIVE); METHADONE URINE SCREEN NEGATIVE (NEGATIVE); OPIATES URINE SCREEN NEGATIVE (NEGATIVE); PHENCYCLIDINE URINE SCREEN PRESUMTIVE POSITIVE (NEGATIVE)
[2018-03-13 02:13] VITALS: BP 168/85
== END 2018-03-13 02:14 | disposition home or self-care (01) ==
LOC: ER 19:30 → CANBEDREQ 03-13 02:15
DX: T40.991A Poisoning by other psychodysleptics [hallucinogens], accidental (unintentional), initial encounter (principal); R07.89 Other chest pain; F16.188 Hallucinogen abuse with other hallucinogen-induced disorder; Y92.89 Other specified places as the place of occurrence of the external cause; I10 Essential (primary) hypertension; F17.210 Nicotine dependence, cigarettes, uncomplicated
CPT/HCPCS: 36415; 71045; 80053; 80305; 83880; 84484; 85025; 85610; 93005; 99285; G0482; Z7610

== ENCOUNTER 2018-03-20 16:09 | Emergency (ER) | payer MEDICAID | END 2018-03-20 16:52 | disposition left against medical advice (07) | LOC: ER 16:09 | DX: Z53.21 Procedure and treatment not carried out due to patient leaving prior to being seen by health care provider (principal) ==

== ENCOUNTER 2018-03-21 20:56 | Emergency (ER) | payer MEDICAID ==
[~2018-03-21] VITALS: Ht 182.9 cm; Wt 86.0 kg
[2018-03-22] MEDS ORDERED: KETOROLAC 30MG/ML VIAL IV STA (04:35)
[2018-03-22] MEDS ORDERED: SODIUM CHLORIDE 0.9% 1,000 ML IV ONE (04:35)
[2018-03-22 05:05] LABS: BASOPHILS % 1.2 % (0.0-2.0); EOSINOPHILS % 2.8 % (0.0-5.0); HEMATOCRIT. 38.1 % (42.0-52.0); HEMOGLOBIN. 13.1 g/dL (14.0-18.0); LYMPHOCYTES % 31.5 % (20.0-50.0); MEAN CORPUSCULAR HEMOGLOBIN 36.4 pg (28.0-32.0); MEAN CORPUSCULAR VOLUME 106.3 fL (80.0-94.0); MEAN PLATELET VOLUME 8.5 fl (7.4-10.4); MONOCYTES % 13.9 % (2.0-8.0); NEUTROPHILS % 50.6 % (40.0-76.0); PLATELET 175 x1000/uL (130-400); RED BLOOD CELL COUNT 3.58 mill/uL (4.7-6.1); RED CELL DISTRIBUTION WIDTH 14.7 % (11.6-14.6)
[2018-03-22 05:08] LABS: CHLORIDE 107 mEq/L (98-107)
[2018-03-22 05:12] LABS: ETHANOL BLOOD < 10 mg/dL
[2018-03-22 07:20] LABS: CLARITY URINE CLEAR (CLEAR); COLOR URINE YELLOW (YELLOW); KETONES URINE NEGATIVE (NEGATIVE); LEUKOCYTE ESTERASE URINE NEGATIVE (NEGATIVE); NITRITE URINE NEGATIVE (NEGATIVE); OCCULT BLOOD URINE NEGATIVE (NEGATIVE); PH URINE 6.5 (4.5-8.0); PROTEIN URINE NEGATIVE (NEGATIVE); SPECIFIC GRAVITY URINE 1.016 (1.005-1.030)
[2018-03-22 07:41] LABS: *AMPHETAMINES SCREEN URINE NEGATIVE (NEGATIVE); *BARBITURATES SCREEN URINE NEGATIVE (NEGATIVE); *BENZODIAZEPINES SCREEN URINE NEGATIVE (NEGATIVE); *COCAINE SCREEN URINE NEGATIVE (NEGATIVE)
[2018-03-22 07:42] LABS: CANNABINOID URINE SCREEN NEGATIVE (NEGATIVE); METHADONE URINE SCREEN NEGATIVE (NEGATIVE); OPIATES URINE SCREEN NEGATIVE (NEGATIVE); PHENCYCLIDINE URINE SCREEN PRESUMTIVE POSITIVE (NEGATIVE)
[2018-03-22 08:34] VITALS: BP 174/94
== END 2018-03-22 09:00 | disposition home or self-care (01) ==
LOC: ER 20:56
DX: R10.31 Right lower quadrant pain (principal); K57.30 Diverticulosis of large intestine without perforation or abscess without bleeding; J98.11 Atelectasis; I10 Essential (primary) hypertension; F17.200 Nicotine dependence, unspecified, uncomplicated
CPT/HCPCS: 36415; 74176; 80053; 80305; 81003; 83690; 85025; 96374; 99285; G0482; J1885; J7030; Z7610

== ENCOUNTER 2018-03-22 20:45 | Emergency (ER) | payer MEDICAID ==
[~2018-03-22] VITALS: Ht 177.8 cm; Wt 86.0 kg
[2018-03-23 05:32] VITALS: BP 139/70
== END 2018-03-23 05:33 | disposition home or self-care (01) ==
LOC: ER 20:48
DX: M25.571 Pain in right ankle and joints of right foot (principal); I10 Essential (primary) hypertension
CPT/HCPCS: 73610; 99284

== ENCOUNTER 2018-06-07 17:42 | Emergency (ER) | payer MEDICAID ==
[~2018-06-07] VITALS: Ht 182.9 cm; Wt 86.0 kg
[~2018-06-07 17:42] MED LIST changes: -RIVA10TA PO
[2018-06-07] MEDS ORDERED: OLANZAPINE 5MG TABLET ODT PO ONE (20:15)
[2018-06-07] MEDS ORDERED: LORAZEPAM 1MG TABLET PO ONE (20:15)
[2018-06-07] MEDS ORDERED: ASPIRIN 81MG TABLET PO ONE (20:15)
[2018-06-07] MEDS ORDERED: ONDANSETRON 4MG ODT PO ONE (20:15)
[2018-06-07 20:44] LABS: BASOPHILS % 0.6 % (0.0-2.0); EOSINOPHILS % 1.7 % (0.0-5.0); HEMATOCRIT. 38.6 % (42.0-52.0); HEMOGLOBIN. 12.9 g/dL (14.0-18.0); LYMPHOCYTES % 28.6 % (20.0-50.0); MEAN CORPUSCULAR HEMOGLOBIN 35.1 pg (28.0-32.0); MEAN CORPUSCULAR VOLUME 104.5 fL (80.0-94.0); MEAN PLATELET VOLUME 8.2 fl (7.4-10.4); MONOCYTES % 7.5 % (2.0-8.0); NEUTROPHILS % 61.6 % (40.0-76.0); PLATELET 183 x1000/uL (130-400); RED BLOOD CELL COUNT 3.69 mill/uL (4.7-6.1); RED CELL DISTRIBUTION WIDTH 13.8 % (11.6-14.6)
[2018-06-07 20:51] LABS: CHLORIDE 104 mEq/L (98-107)
[2018-06-07 20:58] LABS: ETHANOL BLOOD < 10 mg/dL
[2018-06-07 21:28] LABS: *AMPHETAMINES SCREEN URINE NEGATIVE (NEGATIVE); *BARBITURATES SCREEN URINE NEGATIVE (NEGATIVE); *BENZODIAZEPINES SCREEN URINE NEGATIVE (NEGATIVE); *COCAINE SCREEN URINE NEGATIVE (NEGATIVE)
[2018-06-07 21:30] LABS: CANNABINOID URINE SCREEN NEGATIVE (NEGATIVE); METHADONE URINE SCREEN NEGATIVE (NEGATIVE); OPIATES URINE SCREEN NEGATIVE (NEGATIVE); PHENCYCLIDINE URINE SCREEN PRESUMTIVE POSITIVE (NEGATIVE)
[2018-06-08] MEDS ORDERED: CLONIDINE 0.2MG TABLET PO ONE (02:00)
[2018-06-08 02:50] VITALS: BP 114/85
== END 2018-06-08 03:15 | disposition home or self-care (01) ==
LOC: ER 21:17
DX: R07.89 Other chest pain (principal); I10 Essential (primary) hypertension; M25.571 Pain in right ankle and joints of right foot; T40.991A Poisoning by other psychodysleptics [hallucinogens], accidental (unintentional), initial encounter; Y92.89 Other specified places as the place of occurrence of the external cause; Z79.899 Other long term (current) drug therapy
CPT/HCPCS: 36415; 71045; 80053; 80305; 83880; 84484; 85025; 85610; 85730; 93005; 99284; G0482; Q0162

== ENCOUNTER 2018-07-20 17:35 | Inpatient (IN) | payer MEDICAID ==
[~2018-07-20] VITALS: Ht 177.8 cm; Wt 79.4 kg
[2018-07-20 20:21] LABS: BASOPHILS % 0.8 % (0.0-2.0); EOSINOPHILS % 0.7 % (0.0-5.0); HEMATOCRIT. 38.5 % (42.0-52.0); HEMOGLOBIN. 12.7 g/dL (14.0-18.0); LYMPHOCYTES % 14.8 % (20.0-50.0); MEAN CORPUSCULAR HEMOGLOBIN 33.7 pg (28.0-32.0); MEAN CORPUSCULAR VOLUME 102.3 fL (80.0-94.0); MEAN PLATELET VOLUME 9.5 fl (7.4-10.4); MONOCYTES % 8.5 % (2.0-8.0); NEUTROPHILS % 75.2 % (40.0-76.0); PLATELET 162 x1000/uL (130-400); RED BLOOD CELL COUNT 3.76 mill/uL (4.7-6.1)
[2018-07-20 20:27] LABS: CHLORIDE 103 mEq/L (98-107)
[2018-07-20 23:01] LABS: *AMPHETAMINES SCREEN URINE NEGATIVE (NEGATIVE); *BARBITURATES SCREEN URINE NEGATIVE (NEGATIVE); *BENZODIAZEPINES SCREEN URINE NEGATIVE (NEGATIVE); *COCAINE SCREEN URINE NEGATIVE (NEGATIVE); METHADONE URINE SCREEN NEGATIVE (NEGATIVE)
[2018-07-20 23:02] LABS: CANNABINOID URINE SCREEN NEGATIVE (NEGATIVE); OPIATES URINE SCREEN NEGATIVE (NEGATIVE); PHENCYCLIDINE URINE SCREEN PRESUMTIVE POSITIVE (NEGATIVE)
[2018-07-20] MEDS ORDERED: ASPIRIN 325MG EC TABLET PO NR (23:30)
[2018-07-20] MEDS ORDERED: DOCUSATE SODIUM 100MG CAPSULE PO PRN (23:45)
[2018-07-20] MEDS ORDERED: GUAIFENESIN 200MG/10ML SUGAR FREE UDC PO PRN (23:45)
[2018-07-20] MEDS ORDERED: ONDANSETRON HCL 4MG/2ML INJ IV PRN (23:45)
[2018-07-20] MEDS ORDERED: HYDROCODONE/ACETAMINOPHEN 5/325MG TABLET PO PRN (23:45)
[2018-07-20] MEDS ORDERED: CLONIDINE 0.1MG TABLET PO PRN (23:45)
[2018-07-20] MEDS ORDERED: IPRATROPIUM/ALBUTEROL 0.5-3(2.5)MG/3ML NEB INH PRN (23:45)
[2018-07-20] MEDS ORDERED: ACETAMINOPHEN 325MG TABLET PO PRN (23:45)
[2018-07-20] MEDS ORDERED: MAGNESIUM/ALUMINUM HYDROXIDE/SIMETHICONE 30ML UDC PO PRN (23:45)
[2018-07-21] VITALS (8 sets, daily range): BP systolic 121–164; BP diastolic 57–82
[2018-07-21] MEDS ORDERED: RIVA20TA PO (03:08)
[2018-07-21] MEDS: ENOXAPARIN 40MG/0.4ML SYR SUBCUT SCH ×2 (09:00→09:40)
[2018-07-21] MEDS: ASPIRIN 81MG EC TABLET PO SCH (09:40)
[2018-07-21 10:23] LABS: BASOPHILS % 0.4 % (0.0-2.0); EOSINOPHILS % 2.5 % (0.0-5.0); HEMATOCRIT. 35.6 % (42.0-52.0); HEMOGLOBIN. 11.9 g/dL (14.0-18.0); LYMPHOCYTES % 16.6 % (20.0-50.0); MEAN CORPUSCULAR HEMOGLOBIN 34.1 pg (28.0-32.0); MEAN CORPUSCULAR VOLUME 101.7 fL (80.0-94.0); MEAN PLATELET VOLUME 9.4 fl (7.4-10.4); MONOCYTES % 8.5 % (2.0-8.0); PLATELET 147 x1000/uL (130-400); RED CELL DISTRIBUTION WIDTH 14.2 % (11.6-14.6)
[2018-07-21 10:44] LABS: HDL CHOLESTEROL 45 mg/dL (40-59); LDL CHOLESTEROL 72 mg/dL (5-100)
[2018-07-21 10:46] LABS: CREATINE KINASE 55 IU/L (39-308)
[2018-07-21 10:50] LABS: CREATINE KINASE MB FRACTION < 1.0 ng/mL (0.5-3.6)
[2018-07-21] MEDS ORDERED: ENOXAPARIN 40MG/0.4ML SYR SUBCUT NR (15:45)
[2018-07-21] MEDS ORDERED: IOHEXOL-350 100 ML BOTTLE ONE (16:08)
[2018-07-21 18:22] LABS: CREATINE KINASE 51 IU/L (39-308)
[2018-07-21 18:23] LABS: CREATINE KINASE MB FRACTION < 1.0 ng/mL (0.5-3.6)
[2018-07-21] MEDS: ATORVASTATIN CALCIUM 20MG TABLET PO SCH (20:24)
[2018-07-21] MEDS: AMLODIPINE 5MG TABLET PO SCH (20:25)
[2018-07-22] VITALS: BP 129/70
[2018-07-22 04:00] VITALS: BP 116/78
[2018-07-22 08:00] VITALS: BP 140/77
[2018-07-22] MEDS: AMLODIPINE 5MG TABLET PO SCH ×2 (08:13→20:52)
[2018-07-22] MEDS: ASPIRIN 81MG EC TABLET PO SCH (08:13)
[2018-07-22] MEDS: ENOXAPARIN 40MG/0.4ML SYR SUBCUT SCH (08:14)
[2018-07-22 12:00] VITALS: BP 140/77
[2018-07-22] MEDS ORDERED: RIVAROXABAN 20 MG TABLET PO SCH (17:00)
[2018-07-22 20:00] VITALS: BP 139/85
[2018-07-22] MEDS: ATORVASTATIN CALCIUM 20MG TABLET PO SCH (20:52)
[2018-07-23] VITALS: BP 105/58
[2018-07-23 04:00] VITALS: BP 118/62
[2018-07-23 08:00] VITALS: BP 132/78
[2018-07-23] MEDS: AMLODIPINE 5MG TABLET PO SCH (08:42)
[2018-07-23 08:53] VITALS: BP 132/65
== END 2018-07-23 09:15 | disposition home or self-care (01) | DRG 203 ==
LOC: ER 17:35 → 5WST 19:56 → EDBEDREQ 21:52 → ENRESERV 23:22 → CANRESERV 23:22
PROVIDERS: ADMIT Internal Medicine; ATTEND Internal Medicine
DX: M94.0 Chondrocostal junction syndrome [Tietze] (principal); I11.0 Hypertensive heart disease with heart failure; I50.22 Chronic systolic (congestive) heart failure; E11.9 Type 2 diabetes mellitus without complications; E78.5 Hyperlipidemia, unspecified; F16.90 Hallucinogen use, unspecified, uncomplicated; R79.1 Abnormal coagulation profile; Z79.01 Long term (current) use of anticoagulants; Z82.49 Family history of ischemic heart disease and other diseases of the circulatory system; Z86.711 Personal history of pulmonary embolism; Z83.3 Family history of diabetes mellitus; Z86.718 Personal history of other venous thrombosis and embolism; Z79.84 Long term (current) use of oral hypoglycemic drugs
CPT/HCPCS: 36415; 71045; 71275; 80061; 80305; 82550; 82553; 82962; 83735; 83880; 84443; 84484; 85379; 93005; 93970; 99285; J1650; Q9967

== ENCOUNTER 2018-08-14 20:00 | Inpatient (IN) | payer MEDICAID ==
[~2018-08-14] VITALS: Ht 182.9 cm; Wt 85.0 kg
[~2018-08-14 20:00] MED LIST changes: -AMLO5TAB88 PO; -CLON0.1T14 PO; -FOLI-43 PO; -L25 PO; -LACT10SO7 PO; -LOSA50TA3 PO; +RIVA20TA PO; -THIA100T72 PO
[2018-08-14 22:23] LABS: CLARITY URINE CLEAR (CLEAR); COLOR URINE YELLOW (YELLOW); KETONES URINE NEGATIVE (NEGATIVE); LEUKOCYTE ESTERASE URINE NEGATIVE (NEGATIVE); NITRITE URINE NEGATIVE (NEGATIVE); OCCULT BLOOD URINE NEGATIVE (NEGATIVE); PH URINE 5.5 (4.5-8.0); PROTEIN URINE 1+ (NEGATIVE); SPECIFIC GRAVITY URINE 1.024 (1.005-1.030)
[2018-08-14 22:52] LABS: BASOPHILS % 0.8 % (0.0-2.0); CHLORIDE 107 mEq/L (98-107); EOSINOPHILS % 1.7 % (0.0-5.0); HEMOGLOBIN. 13.1 g/dL (14.0-18.0); LYMPHOCYTES % 21.8 % (20.0-50.0); MEAN CORPUSCULAR HEMOGLOBIN 33.7 pg (28.0-32.0); MEAN CORPUSCULAR VOLUME 103.3 fL (80.0-94.0); MEAN PLATELET VOLUME 8.7 fl (7.4-10.4); MONOCYTES % 7.3 % (2.0-8.0); NEUTROPHILS % 68.4 % (40.0-76.0); PLATELET 255 x1000/uL (130-400); RED BLOOD CELL COUNT 3.87 mill/uL (4.7-6.1); RED CELL DISTRIBUTION WIDTH 15.2 % (11.6-14.6)
[2018-08-14 22:53] LABS: PROTHROMBIN TIME 10.2 sec (9.1-11.1)
[2018-08-14] MEDS ORDERED: CLONIDINE 0.1MG TABLET PO ONE (23:45)
[2018-08-15 16:23] VITALS: BP 173/92
[2018-08-15] MEDS ORDERED: HYDRALAZINE 20MG/ML VIAL IV NR (17:13)
[2018-08-15 17:55] VITALS: BP 148/76
[2018-08-15] MEDS ORDERED: DOCUSATE SODIUM 100MG CAPSULE PO PRN (19:00)
[2018-08-15] MEDS ORDERED: ACETAMINOPHEN 325MG TABLET PO PRN (19:00)
[2018-08-15] MEDS ORDERED: HYDROCODONE/ACETAMINOPHEN 5/325MG TABLET PO PRN (19:00)
[2018-08-15] MEDS ORDERED: ONDANSETRON HCL 4MG/2ML INJ IV PRN (19:00)
[2018-08-15] MEDS: THIAMINE HCL 100MG TABLET PO SCH (19:00)
[2018-08-15] MEDS ORDERED: CLONIDINE 0.1MG TABLET PO PRN (19:00)
[2018-08-15] MEDS ORDERED: LORAZEPAM 0.5MG TABLET PO PRN (19:00)
[2018-08-15] MEDS ORDERED: IPRATROPIUM/ALBUTEROL 0.5-3(2.5)MG/3ML NEB INH PRN (19:00)
[2018-08-15] MEDS: FOLIC ACID/VITAMIN B COMP W-C TABLET PO SCH (19:00)
[2018-08-15 20:00] VITALS: BP 137/73
[2018-08-15 21:25] LABS: CREATINE KINASE 112 IU/L (39-308)
[2018-08-15 21:26] LABS: CREATINE KINASE MB FRACTION < 1.0 ng/mL (0.5-3.6)
[2018-08-15 21:35] LABS: FOLIC ACID (FOLATE) SERUM 7.7 ng/mL (>5.38)
[2018-08-15 21:43] LABS: PROSTRATE SPECIFIC AG TOTAL 1.17 ng/mL (0.0-4.0)
[2018-08-16] VITALS (8 sets, daily range): BP systolic 111–158; BP diastolic 59–89
[2018-08-16 06:47] LABS: CHLORIDE 110 mEq/L (98-107)
[2018-08-16 06:49] LABS: BASOPHILS % 0.4 % (0.0-2.0); EOSINOPHILS % 2.7 % (0.0-5.0); HEMOGLOBIN. 12.4 g/dL (14.0-18.0); LYMPHOCYTES % 24.5 % (20.0-50.0); MEAN CORPUSCULAR HEMOGLOBIN 33.7 pg (28.0-32.0); MEAN CORPUSCULAR VOLUME 102.7 fL (80.0-94.0); MEAN PLATELET VOLUME 8.7 fl (7.4-10.4); MONOCYTES % 9.5 % (2.0-8.0); NEUTROPHILS % 62.9 % (40.0-76.0); PLATELET 223 x1000/uL (130-400)
[2018-08-16] MEDS: AMLODIPINE 5MG TABLET PO SCH (08:29)
[2018-08-16] MEDS: THIAMINE HCL 100MG TABLET PO SCH (08:29)
[2018-08-16] MEDS: MULTIVITAMINS,THER W-MINERALS TABLET PO SCH (08:30)
[2018-08-16] MEDS: FOLIC ACID/VITAMIN B COMP W-C TABLET PO SCH (08:30)
[2018-08-17] VITALS: BP 124/64
[2018-08-17 08:00] VITALS: BP_SYST 142; BP_SYST 149; BP_DIAS 69; BP_DIAS 73
[2018-08-17] MEDS: MULTIVITAMINS,THER W-MINERALS TABLET PO SCH (09:00)
[2018-08-17] MEDS: THIAMINE HCL 100MG TABLET PO SCH (09:00)
[2018-08-17] MEDS: FOLIC ACID/VITAMIN B COMP W-C TABLET PO SCH (09:00)
[2018-08-17] MEDS: AMLODIPINE 5MG TABLET PO SCH (09:00)
[2018-08-17 09:06] LABS: HIV SCREEN 4G Non Reactive (Non Reactive)
== END 2018-08-17 10:15 | disposition home or self-care (01) | DRG 254 ==
LOC: ER 20:00 → 3WST 23:33 → ENRESERV 08-15 15:20 → CANRESERV 08-15 15:20 → 6WST 08-16 10:32
PROVIDERS: ADMIT Internal Medicine; ATTEND Internal Medicine
DX: K40.30 Unilateral inguinal hernia, with obstruction, without gangrene, not specified as recurrent (principal); D64.9 Anemia, unspecified; I10 Essential (primary) hypertension; N40.0 Benign prostatic hyperplasia without lower urinary tract symptoms; R07.9 Chest pain, unspecified; R79.89 Other specified abnormal findings of blood chemistry; F17.210 Nicotine dependence, cigarettes, uncomplicated; Z86.718 Personal history of other venous thrombosis and embolism; Z82.49 Family history of ischemic heart disease and other diseases of the circulatory system; Z83.3 Family history of diabetes mellitus
CPT/HCPCS: 36415; 71045; 74176; 80048; 80320; 82140; 82550; 82553; 82607; 82746; 83735; 83880; 84100; 84153; 84484; 87389; 93005; 96374; 99291; J0360; G0103

== ENCOUNTER 2018-08-17 22:21 | Emergency (ER) | payer MEDICAID ==
[~2018-08-17] VITALS: Ht 182.9 cm; Wt 87.0 kg
[2018-08-17 23:21] VITALS: BP 158/93
== END 2018-08-18 08:42 | disposition left against medical advice (07) ==
LOC: ER 22:21
DX: R53.1 Weakness (principal); R42 Dizziness and giddiness; Z53.21 Procedure and treatment not carried out due to patient leaving prior to being seen by health care provider

== ENCOUNTER 2018-08-18 19:15 | Emergency (ER) | payer MEDICAID ==
[~2018-08-18] VITALS: Ht 182.9 cm; Wt 86.0 kg
[2018-08-19] MEDS ORDERED: ASPIRIN 81MG TABLET PO ONE (00:45)
[2018-08-19 01:19] LABS: BASOPHILS % 0.8 % (0.0-2.0); EOSINOPHILS % 4.3 % (0.0-5.0); HEMATOCRIT. 39.9 % (42.0-52.0); HEMOGLOBIN. 13.1 g/dL (14.0-18.0); LYMPHOCYTES % 26.8 % (20.0-50.0); MEAN CORPUSCULAR HEMOGLOBIN 33.6 pg (28.0-32.0); MEAN CORPUSCULAR VOLUME 102.5 fL (80.0-94.0); MEAN PLATELET VOLUME 8.7 fl (7.4-10.4); MONOCYTES % 8.1 % (2.0-8.0); PLATELET 219 x1000/uL (130-400); RED BLOOD CELL COUNT 3.89 mill/uL (4.7-6.1); RED CELL DISTRIBUTION WIDTH 14.7 % (11.6-14.6)
[2018-08-19 01:21] LABS: CHLORIDE 104 mEq/L (98-107)
[2018-08-19] MEDS ORDERED: KETOROLAC 30MG/ML VIAL IV ONE (03:30)
[2018-08-19] MEDS ORDERED: ACETAMINOPHEN 325MG TABLET PO ONE (03:45)
[2018-08-19 05:22] VITALS: BP 123/75
== END 2018-08-19 05:32 | disposition home or self-care (01) ==
LOC: ER 19:15
DX: S93.401A Sprain of unspecified ligament of right ankle, initial encounter (principal); S20.219A Contusion of unspecified front wall of thorax, initial encounter; R78.89 Finding of other specified substances, not normally found in blood; R60.1 Generalized edema; F17.200 Nicotine dependence, unspecified, uncomplicated; V43.52XA Car driver injured in collision with other type car in traffic accident, initial encounter; Y93.89 Activity, other specified; Y92.89 Other specified places as the place of occurrence of the external cause; Y99.8 Other external cause status
CPT/HCPCS: 36415; 71045; 73610; 80053; 83880; 84484; 85025; 93005; 99284; Z7610

== ENCOUNTER 2018-08-19 08:10 | Emergency (ER) | payer MEDICAID ==
[~2018-08-19] VITALS: Ht 182.9 cm; Wt 87.0 kg
[2018-08-19] MEDS ORDERED: IBUPROFEN 600MG TABLET PO ONE (08:45)
[2018-08-19 09:35] VITALS: BP 102/71
== END 2018-08-19 10:32 | disposition left against medical advice (07) ==
LOC: ER 08:10
DX: M25.571 Pain in right ankle and joints of right foot (principal); I10 Essential (primary) hypertension; Z79.899 Other long term (current) drug therapy; V49.9XXA Car occupant (driver) (passenger) injured in unspecified traffic accident, initial encounter; Y93.89 Activity, other specified; Y92.89 Other specified places as the place of occurrence of the external cause; Y99.8 Other external cause status
CPT/HCPCS: 73610; 99283

== ENCOUNTER 2018-08-19 23:11 | Emergency (ER) | payer MEDICAID ==
[~2018-08-19] VITALS: Ht 175.3 cm; Wt 104.0 kg
[2018-08-20 09:45] VITALS: BP 160/93
[2018-08-20] MEDS ORDERED: ACETAMINOPHEN 325MG TABLET PO ONE (10:00)
== END 2018-08-20 12:36 | disposition home or self-care (01) ==
LOC: ER 23:11
DX: S93.402A Sprain of unspecified ligament of left ankle, initial encounter (principal); J06.9 Acute upper respiratory infection, unspecified; I10 Essential (primary) hypertension; Z79.899 Other long term (current) drug therapy; V89.2XXA Person injured in unspecified motor-vehicle accident, traffic, initial encounter; Y93.89 Activity, other specified; Y92.89 Other specified places as the place of occurrence of the external cause; Y99.8 Other external cause status
CPT/HCPCS: 73610; 99283

== ENCOUNTER 2018-08-21 06:31 | Emergency (ER) | payer MEDICAID ==
[~2018-08-21] VITALS: Ht 182.9 cm; Wt 87.0 kg
[2018-08-21 06:46] VITALS: BP 183/107
[2018-08-21] MEDS ORDERED: ACETAMINOPHEN 325MG TABLET PO ONE (10:00)
== END 2018-08-21 11:41 | disposition home or self-care (01) ==
LOC: ER 06:31
DX: M25.572 Pain in left ankle and joints of left foot (principal); R05 Cough; I10 Essential (primary) hypertension; Z59.0 Homelessness
CPT/HCPCS: 99283

== ENCOUNTER 2018-08-21 21:10 | Emergency (ER) | payer MEDICAID ==
[~2018-08-21] VITALS: Ht 177.8 cm; Wt 87.0 kg
[2018-08-22] MEDS ORDERED: FAMOTIDINE 20MG TABLET PO ONE (05:00)
[2018-08-22] MEDS ORDERED: ONDANSETRON 4MG ODT PO ONE (05:00)
[2018-08-22 05:51] LABS: BASOPHILS % 0.6 % (0.0-2.0); EOSINOPHILS % 3.2 % (0.0-5.0); HEMATOCRIT. 36.9 % (42.0-52.0); HEMOGLOBIN. 12.2 g/dL (14.0-18.0); LYMPHOCYTES % 30.7 % (20.0-50.0); MEAN CORPUSCULAR HEMOGLOBIN 33.8 pg (28.0-32.0); MEAN CORPUSCULAR VOLUME 102.3 fL (80.0-94.0); MEAN PLATELET VOLUME 8.8 fl (7.4-10.4); MONOCYTES % 9.4 % (2.0-8.0); NEUTROPHILS % 56.1 % (40.0-76.0); PLATELET 200 x1000/uL (130-400); RED BLOOD CELL COUNT 3.61 mill/uL (4.7-6.1); RED CELL DISTRIBUTION WIDTH 14.4 % (11.6-14.6)
[2018-08-22 06:00] LABS: CHLORIDE 108 mEq/L (98-107)
[2018-08-22 06:30] VITALS: BP 130/66
== END 2018-08-22 10:21 | disposition left against medical advice (07) ==
LOC: ER 21:10
DX: R11.2 Nausea with vomiting, unspecified (principal); R10.13 Epigastric pain; I10 Essential (primary) hypertension
CPT/HCPCS: 36415; 80053; 85025; 87186; 99283; Q0162

== ENCOUNTER 2018-08-22 19:48 | Emergency (ER) | payer MEDICAID ==
[~2018-08-22] VITALS: Ht 182.9 cm; Wt 88.0 kg
[2018-08-22 21:40] VITALS: BP 188/90
== END 2018-08-22 19:54 | disposition left against medical advice (07) ==
LOC: ER 19:48
DX: R07.9 Chest pain, unspecified (principal); Z53.21 Procedure and treatment not carried out due to patient leaving prior to being seen by health care provider
CPT/HCPCS: 93005

== ENCOUNTER 2018-08-23 02:57 | Emergency (ER) | payer MEDICAID ==
[~2018-08-23] VITALS: Ht 182.9 cm; Wt 87.0 kg
[2018-08-23 03:02] VITALS: BP 161/91
[2018-08-23] MEDS ORDERED: ACETAMINOPHEN 325MG TABLET PO ONE (08:15)
== END 2018-08-23 08:29 | disposition left against medical advice (07) ==
LOC: ER 02:57
DX: R19.09 Other intra-abdominal and pelvic swelling, mass and lump (principal); I10 Essential (primary) hypertension
CPT/HCPCS: 99282

== ENCOUNTER 2018-08-23 22:19 | Emergency (ER) | payer MEDICAID ==
[~2018-08-23] VITALS: Ht 182.9 cm; Wt 87.0 kg
[2018-08-24 02:52] LABS: BASOPHILS % 1.3 % (0.0-2.0); EOSINOPHILS % 3.7 % (0.0-5.0); HEMATOCRIT. 38.5 % (42.0-52.0); HEMOGLOBIN. 12.8 g/dL (14.0-18.0); MEAN CORPUSCULAR HEMOGLOBIN 34.3 pg (28.0-32.0); MEAN CORPUSCULAR VOLUME 102.9 fL (80.0-94.0); MEAN PLATELET VOLUME 9.1 fl (7.4-10.4); PLATELET 209 x1000/uL (130-400); RED BLOOD CELL COUNT 3.74 mill/uL (4.7-6.1); RED CELL DISTRIBUTION WIDTH 14.6 % (11.6-14.6)
[2018-08-24 02:53] LABS: CHLORIDE 106 mEq/L (98-107)
[2018-08-24 02:55] LABS: PARTIAL THROMBOPLASTIN TIME 29.4 sec (23.4-31.0); PROTHROMBIN TIME 10.3 sec (9.1-11.1)
[2018-08-24 03:00] LABS: CLARITY URINE CLEAR (CLEAR); COLOR URINE YELLOW (YELLOW); KETONES URINE TRACE (NEGATIVE); LEUKOCYTE ESTERASE URINE NEGATIVE (NEGATIVE); NITRITE URINE NEGATIVE (NEGATIVE); OCCULT BLOOD URINE NEGATIVE (NEGATIVE); PROTEIN URINE NEGATIVE (NEGATIVE); SPECIFIC GRAVITY URINE 1.017 (1.005-1.030)
[2018-08-24] MEDS ORDERED: ACETAMINOPHEN WITH CODEINE 300/30MG TABLET PO ONE (03:15)
[2018-08-24 03:22] VITALS: BP 138/72
[2018-08-25] MEDS ORDERED: CLON-457 PO (09:23)
== END 2018-08-24 03:50 | disposition home or self-care (01) ==
LOC: ER 22:19
DX: I82.412 Acute embolism and thrombosis of left femoral vein (principal); I82.432 Acute embolism and thrombosis of left popliteal vein; I82.411 Acute embolism and thrombosis of right femoral vein; I10 Essential (primary) hypertension; R07.89 Other chest pain; R10.31 Right lower quadrant pain; F17.210 Nicotine dependence, cigarettes, uncomplicated
CPT/HCPCS: 36415; 80053; 81003; 85025; 85610; 85730; 93970; 99284; Z7610

== ENCOUNTER 2018-08-24 17:10 | Inpatient (IN) | payer MEDICAID ==
[~2018-08-24] VITALS: Ht 182.9 cm; Wt 87.1 kg
[2018-08-24] MEDS ORDERED: ASPIRIN 81MG TABLET PO ONE (21:00)
[2018-08-24 22:19] LABS: BASOPHILS % 0.5 % (0.0-2.0); EOSINOPHILS % 2.3 % (0.0-5.0); HEMATOCRIT. 41.4 % (42.0-52.0); HEMOGLOBIN. 13.6 g/dL (14.0-18.0); LYMPHOCYTES % 24.1 % (20.0-50.0); MEAN CORPUSCULAR HEMOGLOBIN 33.8 pg (28.0-32.0); MEAN CORPUSCULAR VOLUME 103.2 fL (80.0-94.0); MEAN PLATELET VOLUME 8.9 fl (7.4-10.4); MONOCYTES % 5.3 % (2.0-8.0); NEUTROPHILS % 67.8 % (40.0-76.0); PLATELET 242 x1000/uL (130-400); RED BLOOD CELL COUNT 4.01 mill/uL (4.7-6.1); RED CELL DISTRIBUTION WIDTH 14.7 % (11.6-14.6)
[2018-08-24 22:21] LABS: CHLORIDE 105 mEq/L (98-107)
[2018-08-24] MEDS ORDERED: IOHEXOL-350 100 ML BOTTLE ONE (22:45)
[2018-08-25] MEDS ORDERED: HYDROCODONE/ACETAMINOPHEN 10/325MG TABLET PO PRN (07:15)
[2018-08-25] MEDS ORDERED: GUAIFENESIN 200MG/10ML SUGAR FREE UDC PO PRN (07:15)
[2018-08-25] MEDS ORDERED: ACETAMINOPHEN 325MG TABLET PO PRN (07:15)
[2018-08-25] MEDS ORDERED: DIPHENHYDRAMINE 50MG/ML VIAL IV PRN (07:15)
[2018-08-25] MEDS ORDERED: NA PHOS,M-B/NA PHOS,DI-BA ENEMA 118ML PR PRN (07:15)
[2018-08-25] MEDS ORDERED: MORPHINE SULFATE 4 MG/ML CPJ (NOT FOR IM USE) IV PRN (07:15)
[2018-08-25] MEDS ORDERED: DOCUSATE SODIUM 100MG CAPSULE PO PRN (07:15)
[2018-08-25] MEDS ORDERED: ONDANSETRON HCL 4MG/2ML INJ IV PRN (07:15)
[2018-08-25] MEDS ORDERED: IPRATROPIUM/ALBUTEROL 0.5-3(2.5)MG/3ML NEB INH PRN (07:15)
[2018-08-25] MEDS ORDERED: LORAZEPAM 2MG/ML CPJ IV PRN (07:15)
[2018-08-25] MEDS ORDERED: MAGNESIUM/ALUMINUM HYDROXIDE/SIMETHICONE 30ML UDC PO PRN (07:15)
[2018-08-25] MEDS ORDERED: CLONIDINE 0.1MG TABLET PO PRN (07:15)
[2018-08-25 08:35] VITALS: BP 128/73
[2018-08-25] MEDS ORDERED: DEXTROSE 50% WATER 50ML SYRINGE IV PRN (09:00)
[2018-08-25] MEDS ORDERED: CLON-457 PO (09:23)
[2018-08-25 09:25] VITALS: BP 128/73
[2018-08-25] MEDS ORDERED: ENOXAPARIN 40MG/0.4ML SYR SUBCUT SCH (09:30)
[2018-08-25] MEDS ORDERED: INFLUENZA VIRUS VACCINE(AFLURIA) 0.5ML SYR IM ONE (10:45)
[2018-08-25 12:00] VITALS: BP 141/81
[2018-08-25 12:04] LABS: CHLORIDE 108 mEq/L (98-107)
[2018-08-25] MEDS: BLOOD SUGAR DIAGNOSTIC STRIP TEST SCH ×3 (12:10→20:35)
[2018-08-25] MEDS: INSULIN LISPRO 100 UNITS/ML SUBCUT SCH ×3 (12:40→20:35)
[2018-08-25] MEDS: RIVAROXABAN 15 MG TABLET PO SCH ×2 (13:06→16:16)
[2018-08-25] MEDS: FUROSEMIDE 40MG/4ML VIAL IV SCH (13:06)
[2018-08-25] MEDS: ASPIRIN 81MG EC TABLET PO SCH (13:06)
[2018-08-25 16:00] VITALS: BP 135/76
[2018-08-25 20:00] VITALS: BP 152/79
[2018-08-26] VITALS: BP 129/73
[2018-08-26 00:56] LABS: CREATINE KINASE 70 IU/L (39-308); CREATINE KINASE MB FRACTION < 1.0 ng/mL (0.5-3.6)
[2018-08-26 04:00] VITALS: BP 128/65
[2018-08-26] MEDS: INSULIN LISPRO 100 UNITS/ML SUBCUT SCH (06:36)
[2018-08-26] MEDS: BLOOD SUGAR DIAGNOSTIC STRIP TEST SCH (06:36)
[2018-08-26 06:56] LABS: CHLORIDE 108 mEq/L (98-107)
[2018-08-26 07:09] LABS: CREATINE KINASE 59 IU/L (39-308); CREATINE KINASE MB FRACTION < 1.0 ng/mL (0.5-3.6); HDL CHOLESTEROL 53 mg/dL (40-59)
[2018-08-26 07:10] LABS: T4 FREE 1.01 ng/dL (0.76-1.46)
[2018-08-26 07:11] LABS: LDL CHOLESTEROL 56 mg/dL (5-100)
[2018-08-26 07:18] LABS: BASOPHILS % 0.7 % (0.0-2.0); EOSINOPHILS % 1.8 % (0.0-5.0); HEMATOCRIT. 36.9 % (42.0-52.0); HEMOGLOBIN. 12.1 g/dL (14.0-18.0); LYMPHOCYTES % 19.2 % (20.0-50.0); MEAN CORPUSCULAR HEMOGLOBIN 33.7 pg (28.0-32.0); MEAN CORPUSCULAR VOLUME 102.7 fL (80.0-94.0); MEAN PLATELET VOLUME 8.9 fl (7.4-10.4); MONOCYTES % 8.7 % (2.0-8.0); NEUTROPHILS % 69.6 % (40.0-76.0); PLATELET 208 x1000/uL (130-400); RED BLOOD CELL COUNT 3.59 mill/uL (4.7-6.1); RED CELL DISTRIBUTION WIDTH 14.6 % (11.6-14.6)
[2018-08-26] MEDS: RIVAROXABAN 15 MG TABLET PO SCH (08:47)
[2018-08-26] MEDS: FUROSEMIDE 40MG/4ML VIAL IV SCH (08:47)
[2018-08-26] MEDS: ASPIRIN 81MG EC TABLET PO SCH (08:47)
[2018-09-16] MEDS ORDERED: RIVAROXABAN 20 MG TABLET PO SCH (17:00)
== END 2018-08-26 11:22 | disposition home or self-care (01) | DRG 194 ==
LOC: ER 17:46 → 8WST 08-25 03:30 → EDBEDREQ 08-25 03:36 → EDBEDREQTM 08-25 03:36 → ENRESERV 08-25 07:45
PROVIDERS: ADMIT Internal Medicine; ATTEND Internal Medicine
DX: I11.0 Hypertensive heart disease with heart failure (principal); I82.413 Acute embolism and thrombosis of femoral vein, bilateral; Z79.01 Long term (current) use of anticoagulants; R07.9 Chest pain, unspecified; I25.10 Atherosclerotic heart disease of native coronary artery without angina pectoris; E11.9 Type 2 diabetes mellitus without complications; G89.29 Other chronic pain; I82.432 Acute embolism and thrombosis of left popliteal vein; J44.9 Chronic obstructive pulmonary disease, unspecified; I82.439 Acute embolism and thrombosis of unspecified popliteal vein; Z82.49 Family history of ischemic heart disease and other diseases of the circulatory system; Z83.3 Family history of diabetes mellitus; Z91.14 Patient's other noncompliance with medication regimen; I50.43 Acute on chronic combined systolic (congestive) and diastolic (congestive) heart failure
CPT/HCPCS: 36415; 71275; 80048; 80061; 82550; 82553; 82962; 83880; 84439; 84443; 84484; 90686; 93005; 96374; 99285; J1940; J7620; Q9967

== ENCOUNTER 2018-08-26 20:55 | Emergency (ER) | payer MEDICAID ==
[~2018-08-26] VITALS: Ht 182.9 cm; Wt 87.3 kg
[~2018-08-26 20:55] MED LIST changes: +CLON-457 PO
[2018-08-27] MEDS ORDERED: IBUPROFEN 600MG TABLET PO STA (08:05)
[2018-08-27 08:39] VITALS: BP 182/106
[2018-08-27 09:16] LABS: CLARITY URINE CLEAR (CLEAR); COLOR URINE YELLOW (YELLOW); KETONES URINE TRACE (NEGATIVE); LEUKOCYTE ESTERASE URINE NEGATIVE (NEGATIVE); NITRITE URINE NEGATIVE (NEGATIVE); OCCULT BLOOD URINE NEGATIVE (NEGATIVE); PH URINE 6.5 (4.5-8.0); PROTEIN URINE TRACE (NEGATIVE); SPECIFIC GRAVITY URINE 1.028 (1.005-1.030)
== END 2018-08-27 10:46 | disposition home or self-care (01) ==
LOC: ER 20:55
DX: K40.90 Unilateral inguinal hernia, without obstruction or gangrene, not specified as recurrent (principal); J06.9 Acute upper respiratory infection, unspecified; N50.3 Cyst of epididymis; I10 Essential (primary) hypertension; F17.200 Nicotine dependence, unspecified, uncomplicated; Z86.718 Personal history of other venous thrombosis and embolism; Z79.899 Other long term (current) drug therapy
CPT/HCPCS: 71045; 76870; 81003; 93976; 99284; Z7610

== ENCOUNTER 2018-08-27 23:47 | Emergency (ER) | payer MEDICAID ==
[~2018-08-27] VITALS: Ht 182.9 cm; Wt 87.0 kg
[2018-08-28 11:59] LABS: BASOPHILS % 0.5 % (0.0-2.0); HEMATOCRIT. 39.1 % (42.0-52.0); HEMOGLOBIN. 13.2 g/dL (14.0-18.0); LYMPHOCYTES % 12.8 % (20.0-50.0); MEAN CORPUSCULAR HEMOGLOBIN 34.7 pg (28.0-32.0); MEAN CORPUSCULAR VOLUME 102.7 fL (80.0-94.0); MEAN PLATELET VOLUME 8.5 fl (7.4-10.4); NEUTROPHILS % 78.7 % (40.0-76.0); PLATELET 195 x1000/uL (130-400); RED BLOOD CELL COUNT 3.81 mill/uL (4.7-6.1); RED CELL DISTRIBUTION WIDTH 14.3 % (11.6-14.6)
[2018-08-28 12:01] LABS: CHLORIDE 106 mEq/L (98-107)
[2018-08-28 12:03] LABS: PROTHROMBIN TIME 10.3 sec (9.1-11.1)
[2018-08-28 12:09] LABS: ETHANOL BLOOD < 10 mg/dL
[2018-08-28 14:05] VITALS: BP 152/91
== END 2018-08-28 14:09 | disposition home or self-care (01) ==
LOC: ER 23:47 → ENRESERV 08-28 12:08 → CANRESERV 08-28 12:08 → CANBEDREQ 08-28 14:00 → ER 08-28 14:09
DX: L73.8 Other specified follicular disorders (principal); R07.89 Other chest pain; I82.5Z1 Chronic embolism and thrombosis of unspecified deep veins of right distal lower extremity; Z91.14 Patient's other noncompliance with medication regimen; I50.9 Heart failure, unspecified; I11.0 Hypertensive heart disease with heart failure; Z79.01 Long term (current) use of anticoagulants; I45.10 Unspecified right bundle-branch block
CPT/HCPCS: 36415; 71045; 84484; 93005; 99284

== ENCOUNTER 2018-08-28 21:10 | Emergency (ER) | payer MEDICAID ==
[~2018-08-28] VITALS: Ht 182.9 cm; Wt 87.0 kg
[2018-08-29] MEDS ORDERED: IBUPROFEN 600MG TABLET PO ONE (03:30)
[2018-08-29 09:25] VITALS: BP 140/102
== END 2018-08-29 09:48 | disposition home or self-care (01) ==
LOC: ER 21:10
DX: R10.11 Right upper quadrant pain (principal); G89.29 Other chronic pain; I10 Essential (primary) hypertension; Z59.0 Homelessness
CPT/HCPCS: 99283

== ENCOUNTER 2018-09-05 23:06 | Emergency (ER) | payer MEDICAID ==
[~2018-09-05] VITALS: Ht 182.9 cm; Wt 86.0 kg
[2018-09-06] MEDS: FUROSEMIDE 40MG TABLET PO ONE ×2 (00:05→01:05)
[2018-09-06] MEDS: CLONIDINE 0.2MG TABLET PO ONE ×2 (00:05→01:05)
[2018-09-06] MEDS: ASPIRIN 81MG TABLET PO ONE ×2 (00:05→01:05)
[2018-09-06 01:43] LABS: BASOPHILS % 0.8 % (0.0-2.0); EOSINOPHILS % 1.4 % (0.0-5.0); HEMATOCRIT. 36.3 % (42.0-52.0); LYMPHOCYTES % 25.2 % (20.0-50.0); MEAN CORPUSCULAR HEMOGLOBIN 34.1 pg (28.0-32.0); MEAN PLATELET VOLUME 8.2 fl (7.4-10.4); MONOCYTES % 8.1 % (2.0-8.0); NEUTROPHILS % 64.5 % (40.0-76.0); PLATELET 189 x1000/uL (130-400); RED BLOOD CELL COUNT 3.53 mill/uL (4.7-6.1); RED CELL DISTRIBUTION WIDTH 14.7 % (11.6-14.6)
[2018-09-06 01:48] LABS: CHLORIDE 108 mEq/L (98-107)
[2018-09-06 02:30] VITALS: BP 164/73
== END 2018-09-06 02:34 | disposition home or self-care (01) ==
LOC: ER 23:06
DX: G89.29 Other chronic pain (principal); R07.89 Other chest pain; R60.0 Localized edema; I11.0 Hypertensive heart disease with heart failure; I50.9 Heart failure, unspecified; E11.9 Type 2 diabetes mellitus without complications; Z91.14 Patient's other noncompliance with medication regimen; F17.210 Nicotine dependence, cigarettes, uncomplicated
CPT/HCPCS: 36415; 83880; 84484; 93005; 99284

== ENCOUNTER 2018-09-06 06:54 | Emergency (ER) | payer MEDICAID ==
[~2018-09-06] VITALS: Ht 182.9 cm; Wt 87.0 kg
[2018-09-06 07:04] VITALS: BP 136/75
== END 2018-09-06 08:06 | disposition home or self-care (01) ==
LOC: ER 07:37
DX: G89.29 Other chronic pain (principal); M79.605 Pain in left leg; M79.604 Pain in right leg; I10 Essential (primary) hypertension
CPT/HCPCS: 99282

== ENCOUNTER 2018-09-06 23:40 | Emergency (ER) | payer MEDICAID ==
[~2018-09-06] VITALS: Ht 182.9 cm; Wt 87.0 kg
[2018-09-07 05:13] VITALS: BP 156/91
== END 2018-09-07 07:49 | disposition left against medical advice (07) ==
LOC: ER 23:40
DX: Z53.21 Procedure and treatment not carried out due to patient leaving prior to being seen by health care provider (principal)

== ENCOUNTER 2018-09-13 22:35 | Emergency (ER) | payer MEDICAID ==
[~2018-09-13] VITALS: Ht 182.9 cm; Wt 87.0 kg
[2018-09-14] MEDS ORDERED: FUROSEMIDE 20MG/2ML VIAL IVP ONE (08:30)
[2018-09-14] MEDS ORDERED: NITROGLYCERIN OINT 1GM/INCH UDPKT TD ONE (08:30)
[2018-09-14] MEDS ORDERED: ASPIRIN 81MG TABLET PO ONE (08:30)
[2018-09-14 08:41] LABS: BASOPHILS % 0.6 % (0.0-2.0); CLARITY URINE CLEAR (CLEAR); COLOR URINE YELLOW (YELLOW); EOSINOPHILS % 2.8 % (0.0-5.0); HEMATOCRIT. 41.2 % (42.0-52.0); HEMOGLOBIN. 13.4 g/dL (14.0-18.0); KETONES URINE TRACE (NEGATIVE); LEUKOCYTE ESTERASE URINE NEGATIVE (NEGATIVE); MEAN CORPUSCULAR HEMOGLOBIN 33.5 pg (28.0-32.0); MEAN CORPUSCULAR VOLUME 102.7 fL (80.0-94.0); MEAN PLATELET VOLUME 8.5 fl (7.4-10.4); NEUTROPHILS % 63.6 % (40.0-76.0); NITRITE URINE NEGATIVE (NEGATIVE); OCCULT BLOOD URINE NEGATIVE (NEGATIVE); PH URINE 5.5 (4.5-8.0); PLATELET 238 x1000/uL (130-400); PROTEIN URINE 1+ (NEGATIVE); RED BLOOD CELL COUNT 4.01 mill/uL (4.7-6.1); RED CELL DISTRIBUTION WIDTH 14.5 % (11.6-14.6)
[2018-09-14 08:46] LABS: CHLORIDE 106 mEq/L (98-107)
[2018-09-14 08:49] LABS: PARTIAL THROMBOPLASTIN TIME 31.3 sec (23.4-31.0); PROTHROMBIN TIME 10.2 sec (9.1-11.1)
[2018-09-14 08:53] LABS: ETHANOL BLOOD < 10 mg/dL
[2018-09-14 08:59] LABS: *AMPHETAMINES SCREEN URINE NEGATIVE (NEGATIVE)
[2018-09-14 09:00] LABS: *BARBITURATES SCREEN URINE NEGATIVE (NEGATIVE); *BENZODIAZEPINES SCREEN URINE NEGATIVE (NEGATIVE); *COCAINE SCREEN URINE PRESUMTIVE POSITIVE (NEGATIVE); METHADONE URINE SCREEN NEGATIVE (NEGATIVE); OPIATES URINE SCREEN NEGATIVE (NEGATIVE); PHENCYCLIDINE URINE SCREEN PRESUMTIVE POSITIVE (NEGATIVE)
[2018-09-14 09:01] LABS: CANNABINOID URINE SCREEN NEGATIVE (NEGATIVE)
[2018-09-14 09:44] VITALS: BP 143/87
== END 2018-09-14 09:47 | disposition home or self-care (01) ==
LOC: ER 22:35 → EDBEDREQ 09-14 09:01 → EDBEDREQTM 09-14 09:01 → CANBEDREQ 09-14 09:14 → ER 09-14 09:47
DX: Z71.6 Tobacco abuse counseling (principal); I11.0 Hypertensive heart disease with heart failure; I50.41 Acute combined systolic (congestive) and diastolic (congestive) heart failure; R42 Dizziness and giddiness; F17.210 Nicotine dependence, cigarettes, uncomplicated; F14.10 Cocaine abuse, uncomplicated; F16.10 Hallucinogen abuse, uncomplicated; E86.0 Dehydration; D64.9 Anemia, unspecified; K50.90 Crohn's disease, unspecified, without complications
CPT/HCPCS: 36415; 71045; 80053; 80305; 80320; 81003; 83880; 84484; 85025; 85610; 85730; 93005; 96374; 99284; 99406; J1940; G0480

== ENCOUNTER 2018-09-14 21:32 | Emergency (ER) | payer MEDICAID ==
[~2018-09-14] VITALS: Ht 182.9 cm; Wt 87.0 kg
[2018-09-15] MEDS ORDERED: KETOROLAC 60MG/2ML VIAL IM STA (03:06)
[2018-09-15 05:36] VITALS: BP 140/85
== END 2018-09-15 05:38 | disposition home or self-care (01) ==
LOC: ER 21:32
DX: K40.90 Unilateral inguinal hernia, without obstruction or gangrene, not specified as recurrent (principal); M25.511 Pain in right shoulder; Z98.890 Other specified postprocedural states
CPT/HCPCS: 96372; 99283; J1885

== ENCOUNTER 2018-09-15 22:01 | Emergency (ER) | payer MEDICAID ==
[~2018-09-15] VITALS: Ht 182.9 cm; Wt 86.0 kg
[2018-09-16 05:35] VITALS: BP 170/80
== END 2018-09-16 07:32 | disposition home or self-care (01) ==
LOC: ER 22:01
DX: K40.91 Unilateral inguinal hernia, without obstruction or gangrene, recurrent (principal); I10 Essential (primary) hypertension
CPT/HCPCS: 99283

== ENCOUNTER 2018-09-17 23:19 | Emergency (ER) | payer MEDICAID ==
[~2018-09-17] VITALS: Ht 182.9 cm; Wt 86.0 kg
[2018-09-18 09:33] VITALS: BP 154/75
== END 2018-09-18 09:39 | disposition home or self-care (01) ==
LOC: ER 23:19
DX: K40.90 Unilateral inguinal hernia, without obstruction or gangrene, not specified as recurrent (principal)
CPT/HCPCS: 99283

== ENCOUNTER 2018-09-18 22:18 | Emergency (ER) | payer MEDICAID ==
[~2018-09-18] VITALS: Ht 182.9 cm; Wt 86.0 kg
[2018-09-18 23:06] VITALS: BP 139/78
== END 2018-09-19 10:22 | disposition home or self-care (01) ==
LOC: ER 22:18
DX: M25.511 Pain in right shoulder (principal); K40.90 Unilateral inguinal hernia, without obstruction or gangrene, not specified as recurrent; I10 Essential (primary) hypertension; F17.200 Nicotine dependence, unspecified, uncomplicated; Z98.890 Other specified postprocedural states; Z79.899 Other long term (current) drug therapy
CPT/HCPCS: 99282

== ENCOUNTER 2018-09-23 20:47 | Emergency (ER) | payer MEDICAID ==
[~2018-09-23] VITALS: Ht 182.9 cm; Wt 86.0 kg
[2018-09-24 01:31] VITALS: BP 140/70
== END 2018-09-24 01:34 | disposition home or self-care (01) ==
LOC: ER 20:47
DX: M25.511 Pain in right shoulder (principal); I10 Essential (primary) hypertension; F17.200 Nicotine dependence, unspecified, uncomplicated; Z98.890 Other specified postprocedural states
CPT/HCPCS: 99283

== ENCOUNTER 2018-09-24 23:44 | Emergency (ER) | payer MEDICAID ==
[~2018-09-24] VITALS: Ht 182.9 cm; Wt 86.5 kg
[2018-09-25 00:02] VITALS: BP 114/78
== END 2018-09-25 09:23 | disposition left against medical advice (07) ==
LOC: ER 23:44
DX: Z53.21 Procedure and treatment not carried out due to patient leaving prior to being seen by health care provider (principal)

== ENCOUNTER 2018-09-25 23:20 | Emergency (ER) | payer MEDICAID ==
[~2018-09-25] VITALS: Ht 182.9 cm; Wt 86.3 kg
[2018-09-26 06:58] VITALS: BP 180/100
== END 2018-09-26 07:51 | disposition left against medical advice (07) ==
LOC: ER 23:20
DX: M25.572 Pain in left ankle and joints of left foot (principal); M25.571 Pain in right ankle and joints of right foot; Z53.21 Procedure and treatment not carried out due to patient leaving prior to being seen by health care provider

== ENCOUNTER 2018-09-26 21:43 | Emergency (ER) | payer MEDICAID ==
[~2018-09-26] VITALS: Ht 182.9 cm; Wt 87.0 kg
[2018-09-27 07:23] LABS: CLARITY URINE CLEAR (CLEAR); COLOR URINE YELLOW (YELLOW); KETONES URINE NEGATIVE (NEGATIVE); LEUKOCYTE ESTERASE URINE NEGATIVE (NEGATIVE); NITRITE URINE NEGATIVE (NEGATIVE); OCCULT BLOOD URINE NEGATIVE (NEGATIVE); PH URINE 5.5 (4.5-8.0); PROTEIN URINE NEGATIVE (NEGATIVE); SPECIFIC GRAVITY URINE 1.024 (1.005-1.030)
[2018-09-27 07:32] LABS: BASOPHILS % 0.6 % (0.0-2.0); EOSINOPHILS % 4.8 % (0.0-5.0); HEMATOCRIT. 39.1 % (42.0-52.0); HEMOGLOBIN. 12.8 g/dL (14.0-18.0); LYMPHOCYTES % 27.6 % (20.0-50.0); MEAN CORPUSCULAR HEMOGLOBIN 33.4 pg (28.0-32.0); MEAN CORPUSCULAR VOLUME 102.2 fL (80.0-94.0); MEAN PLATELET VOLUME 7.9 fl (7.4-10.4); PLATELET 216 x1000/uL (130-400); RED BLOOD CELL COUNT 3.83 mill/uL (4.7-6.1); RED CELL DISTRIBUTION WIDTH 14.3 % (11.6-14.6)
[2018-09-27 07:36] LABS: CHLORIDE 107 mEq/L (98-107)
[2018-09-27 09:05] VITALS: BP 135/72
== END 2018-09-27 09:27 | disposition home or self-care (01) ==
LOC: ER 21:43
DX: I82.513 Chronic embolism and thrombosis of femoral vein, bilateral (principal); Z79.01 Long term (current) use of anticoagulants
CPT/HCPCS: 36415; 71045; 83880; 84484; 93005; 93970; 99284

== ENCOUNTER 2018-09-27 20:32 | Emergency (ER) | payer MEDICAID ==
[~2018-09-27] VITALS: Ht 182.9 cm; Wt 87.0 kg
[2018-09-28] MEDS ORDERED: ASPIRIN 325MG EC TABLET PO ONE (06:45)
[2018-09-28 07:30] LABS: BASOPHILS % 0.8 % (0.0-2.0); EOSINOPHILS % 4.7 % (0.0-5.0); HEMATOCRIT. 39.3 % (42.0-52.0); LYMPHOCYTES % 31.2 % (20.0-50.0); MEAN CORPUSCULAR VOLUME 102.5 fL (80.0-94.0); MEAN PLATELET VOLUME 7.8 fl (7.4-10.4); MONOCYTES % 9.1 % (2.0-8.0); NEUTROPHILS % 54.2 % (40.0-76.0); PLATELET 201 x1000/uL (130-400); RED BLOOD CELL COUNT 3.83 mill/uL (4.7-6.1)
[2018-09-28 07:41] LABS: CHLORIDE 108 mEq/L (98-107)
[2018-09-28 08:32] VITALS: BP 154/85
== END 2018-09-28 09:00 | disposition home or self-care (01) ==
LOC: ER 20:32
DX: R07.9 Chest pain, unspecified (principal); I11.0 Hypertensive heart disease with heart failure; I50.9 Heart failure, unspecified; F17.200 Nicotine dependence, unspecified, uncomplicated; Z79.899 Other long term (current) drug therapy
CPT/HCPCS: 36415; 71045; 83880; 84484; 99284

== ENCOUNTER 2018-09-28 20:51 | Emergency (ER) | payer MEDICAID ==
[~2018-09-28] VITALS: Ht 182.9 cm; Wt 87.0 kg
[2018-09-29 06:38] VITALS: BP 151/79
== END 2018-09-29 06:41 | disposition home or self-care (01) ==
LOC: ER 21:24
DX: R60.9 Edema, unspecified (principal); M25.512 Pain in left shoulder; M79.672 Pain in left foot; I10 Essential (primary) hypertension; F17.200 Nicotine dependence, unspecified, uncomplicated; Z79.899 Other long term (current) drug therapy; Z98.890 Other specified postprocedural states; Z86.718 Personal history of other venous thrombosis and embolism
CPT/HCPCS: 99283

== ENCOUNTER 2018-09-29 22:12 | Emergency (ER) | payer MEDICAID ==
[~2018-09-29] VITALS: Ht 182.9 cm; Wt 87.0 kg
[2018-09-29] MEDS ORDERED: IBUPROFEN 600MG TABLET PO ONE (23:00)
[2018-09-29] MEDS ORDERED: MORPHINE SULFATE 10 MG/ML CPJ IM ONE (23:30)
[2018-09-29] MEDS ORDERED: LORAZEPAM 1MG TABLET PO ONE (23:30)
[2018-09-30 00:35] VITALS: BP 156/88
== END 2018-09-30 00:38 | disposition home or self-care (01) ==
LOC: ER 22:12
DX: K40.90 Unilateral inguinal hernia, without obstruction or gangrene, not specified as recurrent (principal); I10 Essential (primary) hypertension; Z79.899 Other long term (current) drug therapy
CPT/HCPCS: 96372; 99284; J2270; 99283

== ENCOUNTER 2018-09-30 21:06 | Emergency (ER) | payer MEDICAID ==
[~2018-09-30] VITALS: Ht 182.9 cm; Wt 95.5 kg
[2018-10-01] MEDS ORDERED: FUROSEMIDE 40MG TABLET PO ONE (00:30)
[2018-10-01] MEDS ORDERED: TRAMADOL 50MG TABLET PO ONE (00:30)
[2018-10-01 06:37] VITALS: BP 134/70
== END 2018-10-01 07:06 | disposition home or self-care (01) ==
LOC: ER 22:27
DX: I82.403 Acute embolism and thrombosis of unspecified deep veins of lower extremity, bilateral (principal); F10.20 Alcohol dependence, uncomplicated; K40.20 Bilateral inguinal hernia, without obstruction or gangrene, not specified as recurrent; I10 Essential (primary) hypertension; F17.200 Nicotine dependence, unspecified, uncomplicated; Z79.899 Other long term (current) drug therapy; Y90.9 Presence of alcohol in blood, level not specified
CPT/HCPCS: 99283; 99406

== ENCOUNTER 2018-10-01 23:22 | Emergency (ER) | payer MEDICAID ==
[~2018-10-01] VITALS: Ht 188 cm; Wt 86.0 kg
[2018-10-02] MEDS ORDERED: ACETAMINOPHEN 500MG TABLET PO ONE (08:00)
[2018-10-02 08:02] VITALS: BP 176/84
== END 2018-10-02 08:07 | disposition home or self-care (01) ==
LOC: ER 23:22
DX: K40.20 Bilateral inguinal hernia, without obstruction or gangrene, not specified as recurrent (principal); I10 Essential (primary) hypertension; F17.200 Nicotine dependence, unspecified, uncomplicated; Z98.890 Other specified postprocedural states; Z79.899 Other long term (current) drug therapy
CPT/HCPCS: 99283

== ENCOUNTER 2018-10-02 21:34 | Emergency (ER) | payer MEDICAID ==
[~2018-10-02] VITALS: Ht 182.9 cm; Wt 87.0 kg
[2018-10-03 00:48] VITALS: BP 156/86
== END 2018-10-03 05:04 | disposition left against medical advice (07) ==
LOC: ER 21:34
DX: M25.519 Pain in unspecified shoulder (principal); Z53.21 Procedure and treatment not carried out due to patient leaving prior to being seen by health care provider

== ENCOUNTER 2018-10-03 07:11 | Emergency (ER) | payer MEDICAID, OTHER ==
[~2018-10-03] VITALS: Ht 182.9 cm; Wt 86.0 kg
[2018-10-03 07:31] VITALS: BP 179/98
[2018-10-03] MEDS ORDERED: ACETAMINOPHEN 325MG TABLET PO STA (09:20)
== END 2018-10-03 09:51 | disposition home or self-care (01) ==
LOC: ER 07:11
DX: K40.30 Unilateral inguinal hernia, with obstruction, without gangrene, not specified as recurrent (principal); R60.9 Edema, unspecified; I10 Essential (primary) hypertension; Z79.899 Other long term (current) drug therapy
CPT/HCPCS: 99282

== ENCOUNTER 2018-10-03 21:53 | Emergency (ER) | payer OTHER ==
[~2018-10-03] VITALS: Ht 182.9 cm; Wt 87.0 kg
[2018-10-03 21:58] VITALS: BP 157/95
== END 2018-10-04 08:30 | disposition left against medical advice (07) ==
LOC: ER 21:53
DX: R10.31 Right lower quadrant pain (principal); Z53.21 Procedure and treatment not carried out due to patient leaving prior to being seen by health care provider

== ENCOUNTER 2018-10-04 20:45 | Emergency (ER) | payer OTHER ==
[~2018-10-04] VITALS: Ht 182.9 cm; Wt 87.0 kg
[2018-10-04] MEDS ORDERED: IBUPROFEN 600MG TABLET PO ONE (22:30)
[2018-10-04 23:30] VITALS: BP 147/82
== END 2018-10-04 23:32 | disposition home or self-care (01) ==
LOC: ER 20:45
DX: I82.403 Acute embolism and thrombosis of unspecified deep veins of lower extremity, bilateral (principal); E11.9 Type 2 diabetes mellitus without complications; I10 Essential (primary) hypertension; F17.200 Nicotine dependence, unspecified, uncomplicated; Z79.899 Other long term (current) drug therapy
CPT/HCPCS: 99282

== ENCOUNTER 2018-10-05 21:33 | Emergency (ER) | payer OTHER ==
[~2018-10-05] VITALS: Ht 182.9 cm; Wt 87.0 kg
[2018-10-06 05:35] VITALS: BP 150/76
== END 2018-10-06 05:35 | disposition home or self-care (01) ==
LOC: ER 22:58
DX: M79.605 Pain in left leg (principal); M79.604 Pain in right leg; R60.9 Edema, unspecified
CPT/HCPCS: 99283; Z7610

== ENCOUNTER 2018-10-06 21:21 | Emergency (ER) | payer OTHER ==
[~2018-10-06] VITALS: Ht 182.9 cm; Wt 86.0 kg
[2018-10-06 22:17] VITALS: BP 155/90
== END 2018-10-07 06:30 | disposition left against medical advice (07) ==
LOC: ER 21:21
DX: M79.89 Other specified soft tissue disorders (principal); Z53.21 Procedure and treatment not carried out due to patient leaving prior to being seen by health care provider

== ENCOUNTER 2018-10-07 23:59 | Emergency (ER) | payer OTHER ==
[~2018-10-07] VITALS: Ht 182.9 cm; Wt 87.0 kg
[2018-10-08 05:05] VITALS: BP 162/77
== END 2018-10-08 05:11 | disposition home or self-care (01) ==
LOC: ER 23:59
DX: M25.572 Pain in left ankle and joints of left foot (principal); M25.571 Pain in right ankle and joints of right foot; G89.29 Other chronic pain; I10 Essential (primary) hypertension; Z98.890 Other specified postprocedural states
CPT/HCPCS: 99283

== ENCOUNTER 2018-10-10 14:50 | Emergency (ER) | payer OTHER ==
[~2018-10-10] VITALS: Ht 185.4 cm; Wt 87.0 kg
[2018-10-10 15:03] VITALS: BP 144/90
== END 2018-10-10 18:12 | disposition left against medical advice (07) ==
LOC: ER 14:50
DX: R42 Dizziness and giddiness (principal); Z53.21 Procedure and treatment not carried out due to patient leaving prior to being seen by health care provider

== ENCOUNTER 2018-10-10 22:25 | Emergency (ER) | payer OTHER ==
[~2018-10-10] VITALS: Ht 182.9 cm; Wt 87.0 kg
[2018-10-11 00:46] VITALS: BP 181/92
== END 2018-10-11 00:46 | disposition home or self-care (01) ==
LOC: ER 22:25
DX: R60.0 Localized edema (principal); I10 Essential (primary) hypertension; E11.9 Type 2 diabetes mellitus without complications; Z86.718 Personal history of other venous thrombosis and embolism
CPT/HCPCS: 99281

== ENCOUNTER 2018-10-12 18:57 | Emergency (ER) | payer OTHER ==
[~2018-10-12] VITALS: Ht 198.1 cm; Wt 85.0 kg
[2018-10-13] MEDS ORDERED: IBUPROFEN 800MG TABLET PO ONE (01:30)
[2018-10-13 01:37] VITALS: BP 152/82
== END 2018-10-13 01:38 | disposition home or self-care (01) ==
LOC: ER 18:57
DX: G89.29 Other chronic pain (principal); M25.512 Pain in left shoulder; M25.511 Pain in right shoulder; I10 Essential (primary) hypertension; Z98.890 Other specified postprocedural states; Z79.899 Other long term (current) drug therapy
CPT/HCPCS: 99282; Z7610

== ENCOUNTER 2018-10-13 20:03 | Emergency (ER) | payer OTHER ==
[~2018-10-13] VITALS: Ht 182.9 cm; Wt 87.0 kg
[2018-10-14] MEDS ORDERED: IBUPROFEN 600MG TABLET PO ONE (04:30)
[2018-10-14 05:03] VITALS: BP 162/90
== END 2018-10-14 05:06 | disposition home or self-care (01) ==
LOC: ER 20:03
DX: M25.511 Pain in right shoulder (principal); I10 Essential (primary) hypertension; F17.210 Nicotine dependence, cigarettes, uncomplicated
CPT/HCPCS: 99282

== ENCOUNTER 2018-10-14 20:23 | Emergency (ER) | payer OTHER ==
[~2018-10-14] VITALS: Ht 182.9 cm; Wt 86.0 kg
[2018-10-15 03:49] VITALS: BP 172/89
== END 2018-10-15 03:52 | disposition home or self-care (01) ==
LOC: ER 20:23
DX: M25.511 Pain in right shoulder (principal); I10 Essential (primary) hypertension
CPT/HCPCS: 99282

== ENCOUNTER 2018-10-15 23:42 | Emergency (ER) | payer OTHER ==
[~2018-10-15] VITALS: Ht 182.9 cm; Wt 116.0 kg
[2018-10-16] MEDS ORDERED: KETOROLAC 60MG/2ML VIAL IM ONE (04:30)
[2018-10-16 04:40] VITALS: BP 145/78
== END 2018-10-16 04:55 | disposition home or self-care (01) ==
LOC: ER 23:42
DX: R07.89 Other chest pain (principal); I10 Essential (primary) hypertension; R00.1 Bradycardia, unspecified; I45.10 Unspecified right bundle-branch block; E11.9 Type 2 diabetes mellitus without complications; Z79.899 Other long term (current) drug therapy; F17.210 Nicotine dependence, cigarettes, uncomplicated
CPT/HCPCS: 71045; 71120; 93005; 99283; Z7610

== ENCOUNTER 2018-10-16 20:28 | Emergency (ER) | payer OTHER ==
[~2018-10-16] VITALS: Ht 182.9 cm; Wt 87.0 kg
[2018-10-16 23:17] VITALS: BP 170/101
== END 2018-10-17 07:59 | disposition left against medical advice (07) ==
LOC: ER 20:28
DX: Z53.21 Procedure and treatment not carried out due to patient leaving prior to being seen by health care provider (principal)

== ENCOUNTER 2018-10-17 19:50 | Emergency (ER) | payer OTHER ==
[~2018-10-17] VITALS: Ht 182.9 cm; Wt 87.0 kg
[2018-10-18 02:25] VITALS: BP 155/90
== END 2018-10-18 02:38 | disposition home or self-care (01) ==
LOC: ER 19:50
DX: I82.593 Chronic embolism and thrombosis of other specified deep vein of lower extremity, bilateral (principal); I10 Essential (primary) hypertension; Z98.890 Other specified postprocedural states
CPT/HCPCS: 99282; 99283

== ENCOUNTER 2018-10-19 23:02 | Emergency (ER) | payer OTHER ==
[~2018-10-19] VITALS: Ht 182.9 cm; Wt 86.0 kg
[2018-10-20 04:48] VITALS: BP 170/85
== END 2018-10-20 04:57 | disposition home or self-care (01) ==
LOC: ER 23:39
DX: I82.503 Chronic embolism and thrombosis of unspecified deep veins of lower extremity, bilateral (principal); I10 Essential (primary) hypertension; F17.200 Nicotine dependence, unspecified, uncomplicated; Z98.890 Other specified postprocedural states; Z79.899 Other long term (current) drug therapy; Z91.14 Patient's other noncompliance with medication regimen
CPT/HCPCS: 99283

== ENCOUNTER 2018-10-22 19:01 | Emergency (ER) | payer OTHER ==
[~2018-10-22] VITALS: Ht 182.9 cm; Wt 87.0 kg
[2018-10-22] MEDS ORDERED: ACETAMINOPHEN 325MG TABLET PO STA (22:51)
[2018-10-22 23:11] VITALS: BP 141/80
== END 2018-10-22 23:12 | disposition home or self-care (01) ==
LOC: ER 19:01
DX: I89.0 Lymphedema, not elsewhere classified (principal); M25.572 Pain in left ankle and joints of left foot; M25.571 Pain in right ankle and joints of right foot; I10 Essential (primary) hypertension; F17.200 Nicotine dependence, unspecified, uncomplicated; Z86.718 Personal history of other venous thrombosis and embolism; Z79.899 Other long term (current) drug therapy
CPT/HCPCS: 99282

== ENCOUNTER 2018-10-23 21:20 | Emergency (ER) | payer OTHER ==
[~2018-10-23] VITALS: Ht 182.9 cm; Wt 87.0 kg
[2018-10-24 06:23] VITALS: BP 123/67
== END 2018-10-24 06:32 | disposition home or self-care (01) ==
LOC: ER 21:20
DX: M54.5 Low back pain (principal); I10 Essential (primary) hypertension; E11.9 Type 2 diabetes mellitus without complications; F17.200 Nicotine dependence, unspecified, uncomplicated; Z79.899 Other long term (current) drug therapy
CPT/HCPCS: 99283

== ENCOUNTER 2018-10-24 22:09 | Emergency (ER) | payer OTHER ==
[~2018-10-24] VITALS: Ht 175.3 cm; Wt 82.0 kg
[2018-10-25 04:17] LABS: EOSINOPHILS % 3.9 % (0.0-5.0); HEMATOCRIT. 42.8 % (42.0-52.0); HEMOGLOBIN. 14.2 g/dL (14.0-18.0); LYMPHOCYTES % 27.7 % (20.0-50.0); MEAN CORPUSCULAR VOLUME 102.4 fL (80.0-94.0); MEAN PLATELET VOLUME 8.1 fl (7.4-10.4); MONOCYTES % 7.9 % (2.0-8.0); NEUTROPHILS % 59.5 % (40.0-76.0); PLATELET 246 x1000/uL (130-400); RED BLOOD CELL COUNT 4.18 mill/uL (4.7-6.1); RED CELL DISTRIBUTION WIDTH 15.1 % (11.6-14.6)
[2018-10-25 04:22] LABS: CHLORIDE 107 mEq/L (98-107)
[2018-10-25 04:28] LABS: PROTHROMBIN TIME 10.2 sec (9.6-11.0)
[2018-10-25 04:36] LABS: CLARITY URINE CLEAR (CLEAR); COLOR URINE YELLOW (YELLOW); KETONES URINE TRACE (NEGATIVE); LEUKOCYTE ESTERASE URINE NEGATIVE (NEGATIVE); NITRITE URINE NEGATIVE (NEGATIVE); OCCULT BLOOD URINE NEGATIVE (NEGATIVE); PH URINE 5.5 (4.5-8.0); PROTEIN URINE TRACE (NEGATIVE); SPECIFIC GRAVITY URINE 1.028 (1.005-1.030)
[2018-10-25 05:46] VITALS: BP 158/85
[2018-10-26] MEDS ORDERED: FURO-152 MT (12:35)
== END 2018-10-25 05:48 | disposition home or self-care (01) ==
LOC: ER 22:09
DX: R07.89 Other chest pain (principal); I10 Essential (primary) hypertension; Z76.0 Encounter for issue of repeat prescription; Z71.89 Other specified counseling; R00.1 Bradycardia, unspecified; I45.89 Other specified conduction disorders
CPT/HCPCS: 36415; 71045; 80053; 81003; 84484; 85025; 85610; 93005; 99284; Z7610

== ENCOUNTER 2018-10-25 20:11 | Inpatient (IN) | payer MEDICAID, OTHER ==
[~2018-10-25] VITALS: Ht 182.9 cm; Wt 87.1 kg
[2018-10-26] MEDS ORDERED: ASPIRIN 325MG EC TABLET PO ONE (04:30)
[2018-10-26 04:36] LABS: BASOPHILS % 0.7 % (0.0-2.0); EOSINOPHILS % 3.4 % (0.0-5.0); HEMATOCRIT. 39.5 % (42.0-52.0); HEMOGLOBIN. 13.2 g/dL (14.0-18.0); MEAN CORPUSCULAR HEMOGLOBIN 34.2 pg (28.0-32.0); MEAN CORPUSCULAR VOLUME 102.6 fL (80.0-94.0); MEAN PLATELET VOLUME 7.8 fl (7.4-10.4); MONOCYTES % 8.6 % (2.0-8.0); NEUTROPHILS % 60.3 % (40.0-76.0); PLATELET 219 x1000/uL (130-400); RED BLOOD CELL COUNT 3.85 mill/uL (4.7-6.1)
[2018-10-26 04:47] LABS: CHLORIDE 113 mEq/L (98-107)
[2018-10-26 04:48] LABS: INR 1.1; PROTHROMBIN TIME 10.9 sec (9.6-11.0)
[2018-10-26 04:49] LABS: CLARITY URINE CLEAR (CLEAR); COLOR URINE YELLOW (YELLOW); KETONES URINE NEGATIVE (NEGATIVE); LEUKOCYTE ESTERASE URINE NEGATIVE (NEGATIVE); NITRITE URINE NEGATIVE (NEGATIVE); OCCULT BLOOD URINE NEGATIVE (NEGATIVE); PH URINE 6.5 (4.5-8.0); PROTEIN URINE NEGATIVE (NEGATIVE); SPECIFIC GRAVITY URINE 1.027 (1.005-1.030)
[2018-10-26] MEDS ORDERED: ONDANSETRON HCL 4MG/2ML INJ IV PRN (06:15)
[2018-10-26] MEDS ORDERED: ACETAMINOPHEN 325MG TABLET PO PRN (06:15)
[2018-10-26] MEDS ORDERED: CLONIDINE 0.1MG TABLET PO PRN (06:15)
[2018-10-26] MEDS ORDERED: MORPHINE SULFATE 4 MG/ML CPJ (NOT FOR IM USE) IV PRN (06:15)
[2018-10-26] MEDS ORDERED: DOCUSATE SODIUM 100MG CAPSULE PO PRN (06:15)
[2018-10-26] MEDS ORDERED: MAGNESIUM/ALUMINUM HYDROXIDE/SIMETHICONE 30ML UDC PO PRN (06:15)
[2018-10-26] MEDS ORDERED: HYDROCODONE/ACETAMINOPHEN 5/325MG TABLET PO PRN (06:15)
[2018-10-26] MEDS ORDERED: GUAIFENESIN 200MG/10ML SUGAR FREE UDC PO PRN (06:15)
[2018-10-26] MEDS ORDERED: DIPHENHYDRAMINE 50MG/ML VIAL IV PRN (06:15)
[2018-10-26] MEDS ORDERED: IPRATROPIUM/ALBUTEROL 0.5-3(2.5)MG/3ML NEB INH PRN (06:15)
[2018-10-26] MEDS ORDERED: LORAZEPAM 2MG/ML CPJ IV PRN (06:15)
[2018-10-26 08:30] VITALS: BP 158/98
[2018-10-26] MEDS ORDERED: NA PHOS,M-B/NA PHOS,DI-BA ENEMA 118ML PR PRN (09:00)
[2018-10-26] MEDS: SODIUM CHLORIDE 0.45% 1,000 ML IV SCH (10:32)
[2018-10-26] MEDS: ASPIRIN 81MG EC TABLET PO SCH (10:32)
[2018-10-26] MEDS: ENOXAPARIN 40MG/0.4ML SYR SUBCUT SCH (10:32)
[2018-10-26 11:55] VITALS: BP 138/71
[2018-10-26 11:56] VITALS: BP 159/70
[2018-10-26] MEDS ORDERED: FURO-152 MT (12:35)
[2018-10-26 15:56] VITALS: BP 129/84
[2018-10-26 20:00] VITALS: BP 158/77
[2018-10-27] VITALS: BP 134/75
[2018-10-27 04:00] VITALS: BP 169/96
[2018-10-27 05:50] LABS: EOSINOPHILS % 3.1 % (0.0-5.0); HEMATOCRIT. 38.8 % (42.0-52.0); HEMOGLOBIN. 12.6 g/dL (14.0-18.0); LYMPHOCYTES % 34.8 % (20.0-50.0); MEAN CORPUSCULAR HEMOGLOBIN 33.7 pg (28.0-32.0); MEAN CORPUSCULAR VOLUME 103.8 fL (80.0-94.0); MEAN PLATELET VOLUME 8.3 fl (7.4-10.4); MONOCYTES % 8.5 % (2.0-8.0); NEUTROPHILS % 52.6 % (40.0-76.0); PLATELET 184 x1000/uL (130-400); RED BLOOD CELL COUNT 3.73 mill/uL (4.7-6.1); RED CELL DISTRIBUTION WIDTH 15.2 % (11.6-14.6)
[2018-10-27 06:26] LABS: CHLORIDE 113 mEq/L (98-107)
[2018-10-27 06:41] LABS: HDL CHOLESTEROL 51 mg/dL (40-59); T4 FREE 1.05 ng/dL (0.76-1.46)
[2018-10-27 06:42] LABS: LDL CHOLESTEROL 66 mg/dL (5-100)
[2018-10-27 08:00] VITALS: BP 143/98
[2018-10-27] MEDS: ENOXAPARIN 40MG/0.4ML SYR SUBCUT SCH ×2 (08:47→08:49)
[2018-10-27] MEDS: SODIUM CHLORIDE 0.45% 1,000 ML IV SCH (08:47)
[2018-10-27] MEDS: ASPIRIN 81MG EC TABLET PO SCH (08:48)
[2018-10-27 09:54] VITALS: BP 143/98
== END 2018-10-27 10:23 | disposition home or self-care (01) | DRG 203 ==
LOC: ER 20:11 → EDBEDREQTM 10-26 06:12 → EDBEDREQ 10-26 06:12 → ENRESERV 10-26 07:10 → CANRESERV 10-26 07:10 → CANBEDREQ 10-26 07:35 → ENRESERV 10-26 07:48 → 8WST 10-26 08:26
PROVIDERS: ADMIT Internal Medicine; ATTEND Internal Medicine
DX: M94.0 Chondrocostal junction syndrome [Tietze] (principal); I11.0 Hypertensive heart disease with heart failure; I50.9 Heart failure, unspecified; I25.10 Atherosclerotic heart disease of native coronary artery without angina pectoris; Z79.01 Long term (current) use of anticoagulants; F17.200 Nicotine dependence, unspecified, uncomplicated; K21.9 Gastro-esophageal reflux disease without esophagitis; Z79.899 Other long term (current) drug therapy; Z82.49 Family history of ischemic heart disease and other diseases of the circulatory system; Z83.3 Family history of diabetes mellitus
CPT/HCPCS: 36415; 71045; 80061; 83880; 84439; 84443; 84484; 99285; J1650

== ENCOUNTER 2018-10-28 03:28 | Emergency (ER) | payer MEDICAID ==
[~2018-10-28] VITALS: Ht 182.9 cm; Wt 87.0 kg
[~2018-10-28 03:28] MED LIST changes: +FURO-152 MT
[2018-10-28] MEDS ORDERED: IBUPROFEN 800MG TABLET PO ONE (07:00)
[2018-10-28 07:20] VITALS: BP 165/96
== END 2018-10-28 07:35 | disposition home or self-care (01) ==
LOC: ER 03:28
DX: M25.511 Pain in right shoulder (principal); M79.672 Pain in left foot; I10 Essential (primary) hypertension; F17.210 Nicotine dependence, cigarettes, uncomplicated
CPT/HCPCS: 99282

== ENCOUNTER 2018-10-30 22:27 | Emergency (ER) | payer MEDICAID ==
[~2018-10-30] VITALS: Ht 182.9 cm; Wt 91.0 kg
[2018-10-31] MEDS ORDERED: IBUPROFEN 600MG TABLET PO ONE (07:15)
[2018-10-31 08:05] VITALS: BP 157/93
== END 2018-10-31 08:31 | disposition left against medical advice (07) ==
LOC: ER 22:27
DX: M25.572 Pain in left ankle and joints of left foot (principal); M25.571 Pain in right ankle and joints of right foot; R07.89 Other chest pain; I10 Essential (primary) hypertension; F17.200 Nicotine dependence, unspecified, uncomplicated; M54.5 Low back pain
CPT/HCPCS: 71045; 93005; 99283; Z7610

== ENCOUNTER 2018-11-02 02:24 | Emergency (ER) | payer MEDICAID ==
[~2018-11-02] VITALS: Ht 182.9 cm; Wt 101.0 kg
[2018-11-02] MEDS ORDERED: IBUPROFEN 600MG TABLET PO ONE (03:15)
[2018-11-02 03:24] VITALS: BP 174/97
== END 2018-11-02 03:25 | disposition home or self-care (01) ==
LOC: ER 02:24
DX: R07.9 Chest pain, unspecified (principal); I10 Essential (primary) hypertension; E11.9 Type 2 diabetes mellitus without complications; F17.200 Nicotine dependence, unspecified, uncomplicated; Z79.899 Other long term (current) drug therapy
CPT/HCPCS: 93005; 99283

== ENCOUNTER 2018-11-02 22:01 | Emergency (ER) | payer MEDICAID ==
[~2018-11-02] VITALS: Ht 182.9 cm; Wt 103.0 kg
[2018-11-03] MEDS ORDERED: CLONIDINE 0.1MG TABLET PO ONE (02:15)
[2018-11-03 02:45] VITALS: BP 174/80
== END 2018-11-03 02:46 | disposition home or self-care (01) ==
LOC: ER 22:01
DX: G89.29 Other chronic pain (principal); I10 Essential (primary) hypertension; M79.605 Pain in left leg; M79.604 Pain in right leg; F17.200 Nicotine dependence, unspecified, uncomplicated; Z79.899 Other long term (current) drug therapy
CPT/HCPCS: 93005; 99283; Z7610

== ENCOUNTER 2018-11-04 23:36 | Emergency (ER) | payer MEDICAID ==
[~2018-11-04] VITALS: Ht 182.9 cm; Wt 105.0 kg
[2018-11-05 00:34] VITALS: BP 219/127
== END 2018-11-05 07:46 | disposition left against medical advice (07) ==
LOC: ER 23:36
DX: M25.571 Pain in right ankle and joints of right foot (principal); M25.572 Pain in left ankle and joints of left foot; Z53.21 Procedure and treatment not carried out due to patient leaving prior to being seen by health care provider
CPT/HCPCS: 93005

== ENCOUNTER 2018-11-05 21:35 | Emergency (ER) | payer MEDICAID ==
[~2018-11-05] VITALS: Ht 175.3 cm; Wt 102.0 kg
[2018-11-06] MEDS ORDERED: ACETAMINOPHEN 500MG TABLET PO ONE (02:30)
[2018-11-06 03:30] VITALS: BP 141/78
== END 2018-11-06 05:27 | disposition home or self-care (01) ==
LOC: ER 21:35
DX: M25.511 Pain in right shoulder (principal); M25.572 Pain in left ankle and joints of left foot; M25.571 Pain in right ankle and joints of right foot; F17.200 Nicotine dependence, unspecified, uncomplicated; I10 Essential (primary) hypertension
CPT/HCPCS: 73030; 99283

== ENCOUNTER 2018-11-06 20:21 | Emergency (ER) | payer MEDICAID ==
[~2018-11-06] VITALS: Ht 182.9 cm; Wt 101.2 kg
[2018-11-06 20:41] VITALS: BP 195/110
[2018-11-07] MEDS ORDERED: FAMOTIDINE 20MG TABLET PO ONE (05:00)
== END 2018-11-07 05:08 | disposition home or self-care (01) ==
LOC: ER 20:21
DX: K29.70 Gastritis, unspecified, without bleeding (principal); I10 Essential (primary) hypertension; F17.200 Nicotine dependence, unspecified, uncomplicated
CPT/HCPCS: 93005; 99283

== ENCOUNTER 2018-11-08 20:43 | Emergency (ER) | payer MEDICAID ==
[~2018-11-08] VITALS: Ht 182.9 cm; Wt 100.0 kg
[2018-11-09] MEDS ORDERED: AMLODIPINE 10MG TABLET PO ONE (02:30)
[2018-11-09 06:04] VITALS: BP 176/102
== END 2018-11-09 06:53 | disposition home or self-care (01) ==
LOC: ER 20:43
DX: R07.89 Other chest pain (principal); R60.9 Edema, unspecified; I10 Essential (primary) hypertension; F17.200 Nicotine dependence, unspecified, uncomplicated; Z98.890 Other specified postprocedural states; Z79.899 Other long term (current) drug therapy
CPT/HCPCS: 36415; 84484; 93005; 99284

== ENCOUNTER 2018-11-12 18:04 | Emergency (ER) | payer MEDICAID, OTHER ==
[~2018-11-12] VITALS: Ht 182.9 cm; Wt 101.0 kg
[2018-11-13] MEDS ORDERED: ACETAMINOPHEN 325MG TABLET PO ONE (03:15)
[2018-11-13 03:31] VITALS: BP 185/113
== END 2018-11-13 03:53 | disposition home or self-care (01) ==
LOC: ER 18:04
DX: Z86.718 Personal history of other venous thrombosis and embolism (principal); K08.89 Other specified disorders of teeth and supporting structures; R60.0 Localized edema; I10 Essential (primary) hypertension; Z79.899 Other long term (current) drug therapy; I25.10 Atherosclerotic heart disease of native coronary artery without angina pectoris
CPT/HCPCS: 99283

== ENCOUNTER 2018-11-14 19:12 | Emergency (ER) | payer OTHER ==
[~2018-11-14] VITALS: Ht 182.9 cm; Wt 102.0 kg
[2018-11-15 03:10] VITALS: BP 131/80
== END 2018-11-15 03:13 | disposition home or self-care (01) ==
LOC: ER 19:12
DX: S09.8XXA Other specified injuries of head, initial encounter (principal); M54.5 Low back pain; R07.89 Other chest pain; W22.8XXA Striking against or struck by other objects, initial encounter; R94.31 Abnormal electrocardiogram [ECG] [EKG]; Y93.89 Activity, other specified; Y92.89 Other specified places as the place of occurrence of the external cause; I10 Essential (primary) hypertension; F17.210 Nicotine dependence, cigarettes, uncomplicated; Z71.6 Tobacco abuse counseling
CPT/HCPCS: 93005; 99284; 99406

== ENCOUNTER 2018-11-16 20:55 | Emergency (ER) | payer OTHER ==
[~2018-11-16] VITALS: Ht 182.9 cm; Wt 102.0 kg
[2018-11-16] MEDS ORDERED: FUROSEMIDE 40MG TABLET PO NR (22:30)
[2018-11-17 00:04] VITALS: BP 170/99
== END 2018-11-17 00:18 | disposition home or self-care (01) ==
LOC: ER 20:55
DX: R07.89 Other chest pain (principal); E03.9 Hypothyroidism, unspecified; F17.210 Nicotine dependence, cigarettes, uncomplicated; Z98.890 Other specified postprocedural states; Z79.899 Other long term (current) drug therapy
CPT/HCPCS: 71045; 93005; 99283; 99406; Z7610

== ENCOUNTER 2018-11-20 22:09 | Emergency (ER) | payer OTHER ==
[~2018-11-20] VITALS: Ht 182.9 cm; Wt 101.0 kg
[2018-11-21] MEDS ORDERED: ASPIRIN 81MG TABLET PO ONE (06:45)
[2018-11-21] MEDS ORDERED: FUROSEMIDE 40MG/4ML VIAL IV ONE (06:45)
[2018-11-21 07:11] LABS: CHLORIDE 106 mEq/L (98-107)
[2018-11-21 07:45] VITALS: BP 148/74
== END 2018-11-21 08:04 | disposition home or self-care (01) ==
LOC: ER 22:09
DX: R07.89 Other chest pain (principal); R60.0 Localized edema; I10 Essential (primary) hypertension; F17.200 Nicotine dependence, unspecified, uncomplicated
CPT/HCPCS: 36415; 71045; 80053; 84484; 93005; 96374; 99284; J1940; Z7610

== ENCOUNTER 2018-11-27 23:03 | Emergency (ER) | payer OTHER ==
[~2018-11-27] VITALS: Ht 182.9 cm; Wt 97.0 kg
[2018-11-28] MEDS ORDERED: MORPHINE SULFATE 4 MG/ML CPJ (NOT FOR IM USE) IV STA (06:16)
[2018-11-28] MEDS ORDERED: ONDANSETRON HCL 4MG/2ML INJ IV STA (06:16)
[2018-11-28 06:50] LABS: CHLORIDE 107 mEq/L (98-107)
[2018-11-28 06:53] LABS: INR 1.1; PARTIAL THROMBOPLASTIN TIME 31.6 sec (23.4-31.0); PROTHROMBIN TIME 11.2 sec (9.6-11.0)
[2018-11-28 06:55] LABS: ETHANOL BLOOD < 10 mg/dL
[2018-11-28 06:58] LABS: BASOPHILS % 1.1 % (0.0-2.0); EOSINOPHILS % 2.5 % (0.0-5.0); HEMATOCRIT. 43.3 % (42.0-52.0); HEMOGLOBIN. 14.2 g/dL (14.0-18.0); LYMPHOCYTES % 28.3 % (20.0-50.0); MEAN CORPUSCULAR HEMOGLOBIN 33.7 pg (28.0-32.0); MEAN CORPUSCULAR VOLUME 103.1 fL (80.0-94.0); MONOCYTES % 9.1 % (2.0-8.0); PLATELET 183 x1000/uL (130-400); RED CELL DISTRIBUTION WIDTH 14.8 % (11.6-14.6)
[2018-11-28] MEDS ORDERED: FUROSEMIDE 20MG/2ML VIAL IVP ONE (07:15)
[2018-11-28 07:23] LABS: *AMPHETAMINES SCREEN URINE NEGATIVE (NEGATIVE); *BARBITURATES SCREEN URINE NEGATIVE (NEGATIVE); *BENZODIAZEPINES SCREEN URINE NEGATIVE (NEGATIVE)
[2018-11-28 07:24] LABS: *COCAINE SCREEN URINE NEGATIVE (NEGATIVE); CANNABINOID URINE SCREEN NEGATIVE (NEGATIVE); METHADONE URINE SCREEN NEGATIVE (NEGATIVE); OPIATES URINE SCREEN NEGATIVE (NEGATIVE); PHENCYCLIDINE URINE SCREEN PRESUMTIVE POSITIVE (NEGATIVE)
[2018-11-28] MEDS ORDERED: CLONIDINE 0.1MG TABLET PO ONE (07:30)
[2018-11-28 10:40] VITALS: BP 137/77
== END 2018-11-28 10:46 | disposition home or self-care (01) ==
LOC: ER 23:03
DX: I16.0 Hypertensive urgency (principal); I11.0 Hypertensive heart disease with heart failure; I50.41 Acute combined systolic (congestive) and diastolic (congestive) heart failure; R07.89 Other chest pain; G89.29 Other chronic pain; M25.511 Pain in right shoulder; F16.129 Hallucinogen abuse with intoxication, unspecified; R94.31 Abnormal electrocardiogram [ECG] [EKG]; I45.10 Unspecified right bundle-branch block
CPT/HCPCS: 36415; 71045; 73030; 80053; 80305; 80320; 82962; 83735; 83880; 84484; 85025; 85610; 85730; 93005; 96374; 96375; 99284; J1940; J2270; J2405; Z7610; G0480

== ENCOUNTER 2018-11-30 09:00 | Emergency (ER) | payer OTHER ==
[~2018-11-30] VITALS: Ht 182.9 cm; Wt 91.0 kg
[2018-11-30 09:13] VITALS: BP 190/98
== END 2018-11-30 12:03 | disposition left against medical advice (07) ==
LOC: ER 09:00
DX: Z53.21 Procedure and treatment not carried out due to patient leaving prior to being seen by health care provider (principal)

== ENCOUNTER 2018-11-30 15:42 | Emergency (ER) | payer OTHER ==
[~2018-11-30] VITALS: Ht 182.9 cm; Wt 101.0 kg
[2018-11-30] MEDS ORDERED: HYDROCODONE/ACETAMINOPHEN 5/325MG TABLET PO ONE (17:15)
[2018-11-30 17:21] VITALS: BP 141/80
== END 2018-11-30 17:19 | disposition home or self-care (01) ==
LOC: ER 15:42
DX: R60.0 Localized edema (principal); M25.571 Pain in right ankle and joints of right foot; I10 Essential (primary) hypertension; F17.210 Nicotine dependence, cigarettes, uncomplicated
CPT/HCPCS: 99283

== ENCOUNTER 2018-12-11 21:19 | Emergency (ER) | payer OTHER ==
[~2018-12-11] VITALS: Ht 175.3 cm; Wt 83.0 kg
[2018-12-12] MEDS ORDERED: ACETAMINOPHEN 325MG TABLET PO STA (06:32)
[2018-12-12] MEDS ORDERED: FUROSEMIDE 20MG TABLET PO ONE (06:45)
[2018-12-12 07:09] VITALS: BP 148/82
== END 2018-12-12 07:11 | disposition home or self-care (01) ==
LOC: ER 21:19
DX: I11.0 Hypertensive heart disease with heart failure (principal); I50.9 Heart failure, unspecified; R60.0 Localized edema; E11.9 Type 2 diabetes mellitus without complications; F17.200 Nicotine dependence, unspecified, uncomplicated; Z79.899 Other long term (current) drug therapy
CPT/HCPCS: 99283

== ENCOUNTER 2018-12-13 00:05 | Emergency (ER) | payer OTHER | END 2018-12-13 01:16 | disposition left against medical advice (07) | LOC: ER 00:05 | DX: Z53.21 Procedure and treatment not carried out due to patient leaving prior to being seen by health care provider (principal) ==

== ENCOUNTER 2018-12-13 05:04 | Emergency (ER) | payer OTHER ==
[~2018-12-13] VITALS: Ht 182.9 cm; Wt 101.0 kg
[2018-12-13 07:16] VITALS: BP 151/80
== END 2018-12-13 07:19 | disposition home or self-care (01) ==
LOC: ER 05:04
DX: I10 Essential (primary) hypertension (principal); Z76.0 Encounter for issue of repeat prescription
CPT/HCPCS: 99281

== ENCOUNTER 2018-12-17 22:04 | Emergency (ER) | payer OTHER ==
[~2018-12-17] VITALS: Ht 182.9 cm; Wt 102.0 kg
[2018-12-17] MEDS ORDERED: IBUPROFEN 600MG TABLET PO STA (23:44)
[2018-12-18 00:02] LABS: BASOPHILS % 1.2 % (0.0-2.0); EOSINOPHILS % 3.3 % (0.0-5.0); HEMOGLOBIN. 13.2 g/dL (14.0-18.0); LYMPHOCYTES % 24.5 % (20.0-50.0); MEAN CORPUSCULAR HEMOGLOBIN 34.6 pg (28.0-32.0); MEAN CORPUSCULAR VOLUME 102.5 fL (80.0-94.0); MEAN PLATELET VOLUME 8.1 fl (7.4-10.4); MONOCYTES % 6.8 % (2.0-8.0); NEUTROPHILS % 64.2 % (40.0-76.0); PLATELET 171 x1000/uL (130-400); RED BLOOD CELL COUNT 3.81 mill/uL (4.7-6.1); RED CELL DISTRIBUTION WIDTH 15.1 % (11.6-14.6)
[2018-12-18 00:08] LABS: CHLORIDE 106 mEq/L (98-107)
[2018-12-18 00:12] LABS: ETHANOL BLOOD < 10 mg/dL
[2018-12-18 02:15] VITALS: BP 141/77
== END 2018-12-18 02:35 | disposition home or self-care (01) ==
LOC: ER 22:04
DX: R07.2 Precordial pain (principal)
CPT/HCPCS: 36415; 71045; 80320; 84484; 93005; 99284; G0480

== ENCOUNTER 2018-12-18 06:04 | Emergency (ER) | payer OTHER ==
[~2018-12-18] VITALS: Ht 182.9 cm; Wt 100.0 kg
[2018-12-18 06:14] VITALS: BP 192/99
== END 2018-12-18 08:00 | disposition left against medical advice (07) ==
LOC: ER 06:04
DX: Z53.21 Procedure and treatment not carried out due to patient leaving prior to being seen by health care provider (principal)

== ENCOUNTER 2018-12-18 22:30 | Emergency (ER) | payer OTHER ==
[~2018-12-18] VITALS: Ht 182.9 cm; Wt 101.0 kg
[2018-12-19 02:04] VITALS: BP 190/106
== END 2018-12-19 08:24 | disposition left against medical advice (07) ==
LOC: ER 22:30
DX: Z53.21 Procedure and treatment not carried out due to patient leaving prior to being seen by health care provider (principal)

== ENCOUNTER 2018-12-20 22:22 | Emergency (ER) | payer OTHER ==
[~2018-12-20] VITALS: Ht 167.6 cm; Wt 103.0 kg
[2018-12-21] MEDS ORDERED: KETOROLAC 30MG/ML VIAL IM ONE (04:15)
[2018-12-21 06:00] VITALS: BP 140/85
== END 2018-12-21 06:15 | disposition home or self-care (01) ==
LOC: ER 22:22
DX: R07.89 Other chest pain (principal); F17.210 Nicotine dependence, cigarettes, uncomplicated
CPT/HCPCS: 93005; 96372; 99283; J1885

== ENCOUNTER 2018-12-23 04:29 | Emergency (ER) | payer OTHER ==
[~2018-12-23] VITALS: Ht 182.9 cm; Wt 102.0 kg
[2018-12-23 04:37] VITALS: BP 196/109
== END 2018-12-23 06:50 | disposition left against medical advice (07) ==
LOC: ER 04:29
DX: Z53.21 Procedure and treatment not carried out due to patient leaving prior to being seen by health care provider (principal)

== ENCOUNTER 2018-12-23 23:54 | Emergency (ER) | payer OTHER ==
[~2018-12-23] VITALS: Ht 182.9 cm; Wt 100.9 kg
[2018-12-24 00:22] VITALS: BP 180/102
== END 2018-12-24 05:28 | disposition home or self-care (01) ==
LOC: ER 23:54
DX: M54.5 Low back pain (principal); I10 Essential (primary) hypertension; F17.200 Nicotine dependence, unspecified, uncomplicated; Z98.890 Other specified postprocedural states
CPT/HCPCS: 99282

== ENCOUNTER 2018-12-24 20:51 | Emergency (ER) | payer OTHER ==
[~2018-12-24] VITALS: Ht 182.9 cm; Wt 102.0 kg
[2018-12-25] MEDS ORDERED: ACETAMINOPHEN 500MG TABLET PO ONE (04:00)
[2018-12-25 04:20] LABS: BASOPHILS % 0.4 % (0.0-2.0); EOSINOPHILS % 3.7 % (0.0-5.0); HEMATOCRIT. 38.5 % (42.0-52.0); HEMOGLOBIN. 12.9 g/dL (14.0-18.0); LYMPHOCYTES % 33.7 % (20.0-50.0); MEAN CORPUSCULAR HEMOGLOBIN 34.4 pg (28.0-32.0); MEAN CORPUSCULAR VOLUME 102.8 fL (80.0-94.0); MEAN PLATELET VOLUME 8.4 fl (7.4-10.4); MONOCYTES % 9.9 % (2.0-8.0); NEUTROPHILS % 52.3 % (40.0-76.0); PLATELET 138 x1000/uL (130-400); RED BLOOD CELL COUNT 3.74 mill/uL (4.7-6.1); RED CELL DISTRIBUTION WIDTH 14.8 % (11.6-14.6)
[2018-12-25 04:26] LABS: CHLORIDE 107 mEq/L (98-107)
[2018-12-25 04:40] LABS: CLARITY URINE CLEAR (CLEAR); COLOR URINE YELLOW (YELLOW); KETONES URINE NEGATIVE (NEGATIVE); LEUKOCYTE ESTERASE URINE NEGATIVE (NEGATIVE); NITRITE URINE NEGATIVE (NEGATIVE); OCCULT BLOOD URINE NEGATIVE (NEGATIVE); PH URINE 6.5 (4.5-8.0); PROTEIN URINE NEGATIVE (NEGATIVE); SPECIFIC GRAVITY URINE 1.015 (1.005-1.030)
[2018-12-25 09:16] VITALS: BP 160/87
== END 2018-12-25 09:36 | disposition home or self-care (01) ==
LOC: ER 20:51
DX: R07.89 Other chest pain (principal); G89.29 Other chronic pain; M54.5 Low back pain; Z79.899 Other long term (current) drug therapy
CPT/HCPCS: 36415; 71045; 71275; 84484; 93005; 99284

== ENCOUNTER 2018-12-28 01:07 | Emergency (ER) | payer OTHER ==
[~2018-12-28] VITALS: Ht 182.9 cm; Wt 101.0 kg
[2018-12-28] MEDS ORDERED: CLONIDINE 0.1MG TABLET PO ONE (04:00)
[2018-12-28 07:00] VITALS: BP 163/88
== END 2018-12-28 07:09 | disposition home or self-care (01) ==
LOC: EDUNIT# 01:07 → ER 01:07
DX: M79.604 Pain in right leg (principal); G89.29 Other chronic pain; I10 Essential (primary) hypertension
CPT/HCPCS: 93005; 99283; Z7610

== ENCOUNTER 2018-12-29 23:17 | Emergency (ER) | payer OTHER ==
[~2018-12-29] VITALS: Ht 185.4 cm; Wt 102.0 kg
[2018-12-30] MEDS ORDERED: IBUPROFEN 600MG TABLET PO ONE (02:30)
[2018-12-30 04:10] VITALS: BP 143/86
== END 2018-12-30 04:35 | disposition home or self-care (01) ==
LOC: ER 23:17
DX: M25.571 Pain in right ankle and joints of right foot (principal); V49.60XA Unspecified car occupant injured in collision with unspecified motor vehicles in traffic accident, initial encounter; Y93.89 Activity, other specified; Y92.410 Unspecified street and highway as the place of occurrence of the external cause; R03.0 Elevated blood-pressure reading, without diagnosis of hypertension; F17.210 Nicotine dependence, cigarettes, uncomplicated
CPT/HCPCS: 73610; 99283

== ENCOUNTER 2018-12-30 22:16 | Emergency (ER) | payer OTHER ==
[~2018-12-30] VITALS: Ht 182.9 cm; Wt 102.0 kg
[2018-12-31] MEDS ORDERED: ACETAMINOPHEN 650MG/20.3ML UDC PO ONE (01:00)
[2018-12-31] MEDS ORDERED: IBUPROFEN 600MG TABLET PO ONE (01:00)
[2018-12-31 02:07] VITALS: BP 128/75
== END 2018-12-31 02:14 | disposition home or self-care (01) ==
LOC: ER 22:16
DX: M54.5 Low back pain (principal)
CPT/HCPCS: 99283

== ENCOUNTER 2018-12-31 21:20 | Emergency (ER) | payer OTHER ==
[~2018-12-31] VITALS: Ht 180.3 cm; Wt 91.0 kg
[2018-12-31] MEDS ORDERED: ACETAMINOPHEN 325MG TABLET PO STA (23:41)
[2019-01-01 00:18] VITALS: BP 197/126
[2019-01-01] MEDS ORDERED: FUROSEMIDE 40MG TABLET PO ONE (00:30)
[2019-01-01] MEDS ORDERED: POTASSIUM CHLORIDE 10MEQ TABLET SR PO ONE (00:30)
== END 2019-01-01 00:38 | disposition home or self-care (01) ==
LOC: ER 21:20
DX: M25.511 Pain in right shoulder (principal); I10 Essential (primary) hypertension; F17.200 Nicotine dependence, unspecified, uncomplicated; Z91.19 Patient's noncompliance with other medical treatment and regimen; Z83.3 Family history of diabetes mellitus
CPT/HCPCS: 99284

== ENCOUNTER 2019-01-03 23:27 | Emergency (ER) | payer OTHER ==
[~2019-01-03] VITALS: Ht 182.9 cm; Wt 106.0 kg
[2019-01-04] MEDS ORDERED: ACETAMINOPHEN 325MG TABLET PO STA (04:13)
[2019-01-04] MEDS ORDERED: FUROSEMIDE 40MG TABLET PO ONE (04:15)
[2019-01-04] MEDS ORDERED: POTASSIUM CHLORIDE 10MEQ TABLET SR PO ONE (04:15)
[2019-01-04] MEDS ORDERED: FUROSEMIDE 40MG TABLET ONE (05:22)
[2019-01-04 06:30] VITALS: BP 138/75
== END 2019-01-04 06:30 | disposition home or self-care (01) ==
LOC: ER 23:27
DX: I10 Essential (primary) hypertension (principal); M25.511 Pain in right shoulder; R60.0 Localized edema; Z91.14 Patient's other noncompliance with medication regimen
CPT/HCPCS: 93005; 99284; Z7610

== ENCOUNTER 2019-01-04 20:47 | Emergency (ER) | payer OTHER ==
[~2019-01-04] VITALS: Ht 182.9 cm; Wt 102.0 kg
[2019-01-05 00:15] LABS: BASOPHILS % 0.4 % (0.0-2.0); EOSINOPHILS % 0.3 % (0.0-5.0); HEMATOCRIT. 40.1 % (42.0-52.0); HEMOGLOBIN. 13.3 g/dL (14.0-18.0); LYMPHOCYTES % 14.3 % (20.0-50.0); MEAN CORPUSCULAR HEMOGLOBIN 33.8 pg (28.0-32.0); MEAN CORPUSCULAR VOLUME 101.8 fL (80.0-94.0); MEAN PLATELET VOLUME 8.7 fl (7.4-10.4); MONOCYTES % 8.4 % (2.0-8.0); NEUTROPHILS % 76.6 % (40.0-76.0); PLATELET 145 x1000/uL (130-400); RED BLOOD CELL COUNT 3.94 mill/uL (4.7-6.1); RED CELL DISTRIBUTION WIDTH 14.5 % (11.6-14.6)
[2019-01-05 00:18] LABS: CHLORIDE 102 mEq/L (98-107)
[2019-01-05 07:25] VITALS: BP 150/60
== END 2019-01-05 07:33 | disposition home or self-care (01) ==
LOC: ER 20:47
DX: G89.29 Other chronic pain (principal); R07.89 Other chest pain; E11.9 Type 2 diabetes mellitus without complications; E78.00 Pure hypercholesterolemia, unspecified; I50.9 Heart failure, unspecified; I11.0 Hypertensive heart disease with heart failure; I25.10 Atherosclerotic heart disease of native coronary artery without angina pectoris; K21.9 Gastro-esophageal reflux disease without esophagitis; F17.200 Nicotine dependence, unspecified, uncomplicated; Z79.899 Other long term (current) drug therapy; Z86.718 Personal history of other venous thrombosis and embolism
CPT/HCPCS: 36415; 71045; 83880; 84484; 93005; 99284

== ENCOUNTER 2019-01-06 00:55 | Emergency (ER) | payer OTHER ==
[~2019-01-06] VITALS: Ht 182.9 cm; Wt 102.0 kg
[2019-01-06 01:04] VITALS: BP 203/102
[2019-01-06] MEDS ORDERED: ACETAMINOPHEN 500MG TABLET PO ONE (01:45)
== END 2019-01-06 01:52 | disposition home or self-care (01) ==
LOC: ER 00:55
DX: R07.89 Other chest pain (principal); I10 Essential (primary) hypertension; Z91.19 Patient's noncompliance with other medical treatment and regimen; F17.210 Nicotine dependence, cigarettes, uncomplicated; Z71.6 Tobacco abuse counseling
CPT/HCPCS: 93005; 99283; 99406

== ENCOUNTER 2019-01-06 21:57 | Emergency (ER) | payer OTHER ==
[~2019-01-06] VITALS: Ht 182.9 cm; Wt 91.6 kg
[2019-01-07] MEDS ORDERED: ACETAMINOPHEN 325MG TABLET PO ONE (01:15)
[2019-01-07] MEDS ORDERED: FAMOTIDINE 20MG TABLET PO ONE (01:15)
[2019-01-07 02:15] VITALS: BP 180/87
== END 2019-01-07 02:15 | disposition home or self-care (01) ==
LOC: ER 21:57
DX: R10.9 Unspecified abdominal pain (principal); I10 Essential (primary) hypertension; F17.200 Nicotine dependence, unspecified, uncomplicated; M25.571 Pain in right ankle and joints of right foot; M25.511 Pain in right shoulder; Z79.899 Other long term (current) drug therapy; Z76.5 Malingerer [conscious simulation]
CPT/HCPCS: 99283

== ENCOUNTER 2019-01-07 21:50 | Emergency (ER) | payer OTHER ==
[~2019-01-07] VITALS: Ht 185.4 cm; Wt 79.0 kg
[2019-01-08] MEDS ORDERED: VISCOUS LIDOCAINE 2% 15 ML UDC PO STA (00:22)
[2019-01-08] MEDS ORDERED: MAGNESIUM/ALUMINUM HYDROXIDE/SIMETHICONE 30ML UDC PO STA (00:22)
[2019-01-08] MEDS ORDERED: FAMOTIDINE 20MG TABLET PO ONE (00:30)
[2019-01-08 02:00] VITALS: BP 127/70
== END 2019-01-08 02:22 | disposition home or self-care (01) ==
LOC: ER 22:23
DX: K29.20 Alcoholic gastritis without bleeding (principal); F10.288 Alcohol dependence with other alcohol-induced disorder; Y90.9 Presence of alcohol in blood, level not specified; F17.210 Nicotine dependence, cigarettes, uncomplicated; I10 Essential (primary) hypertension
CPT/HCPCS: 99284

== ENCOUNTER 2019-01-09 02:40 | Emergency (ER) | payer OTHER ==
[~2019-01-09] VITALS: Ht 182.9 cm; Wt 106.0 kg
[2019-01-09 04:38] VITALS: BP 143/76
== END 2019-01-09 04:39 | disposition home or self-care (01) ==
LOC: ER 02:40
DX: R53.83 Other fatigue (principal); I10 Essential (primary) hypertension; E11.9 Type 2 diabetes mellitus without complications; F17.200 Nicotine dependence, unspecified, uncomplicated; Z79.899 Other long term (current) drug therapy
CPT/HCPCS: 99281

== ENCOUNTER 2019-01-10 00:15 | Emergency (ER) | payer OTHER ==
[~2019-01-10] VITALS: Ht 182.9 cm; Wt 83.0 kg
[2019-01-10 04:51] VITALS: BP 142/80
== END 2019-01-10 04:53 | disposition home or self-care (01) ==
LOC: ER 00:15
DX: R05 Cough (principal); I11.9 Hypertensive heart disease without heart failure; F17.210 Nicotine dependence, cigarettes, uncomplicated
CPT/HCPCS: 99283

== ENCOUNTER 2019-01-10 22:11 | Emergency (ER) | payer OTHER ==
[~2019-01-10] VITALS: Ht 182.9 cm; Wt 105.0 kg
[2019-01-10] MEDS ORDERED: IBUPROFEN 800MG TABLET PO ONE (23:45)
[2019-01-10 23:58] VITALS: BP 144/73
== END 2019-01-11 00:18 | disposition home or self-care (01) ==
LOC: ER 22:11
DX: M54.5 Low back pain (principal); I10 Essential (primary) hypertension; F17.210 Nicotine dependence, cigarettes, uncomplicated; F12.90 Cannabis use, unspecified, uncomplicated
CPT/HCPCS: 99282

== ENCOUNTER 2019-01-12 00:07 | Emergency (ER) | payer MEDICAID, OTHER ==
[~2019-01-12] VITALS: Ht 182.9 cm; Wt 102.0 kg
[2019-01-12 04:28] LABS: BASOPHILS % 0.4 % (0.0-2.0); EOSINOPHILS % 1.1 % (0.0-5.0); HEMATOCRIT. 36.7 % (42.0-52.0); LYMPHOCYTES % 17.3 % (20.0-50.0); MEAN CORPUSCULAR VOLUME 100.6 fL (80.0-94.0); MEAN PLATELET VOLUME 8.9 fl (7.4-10.4); MONOCYTES % 11.5 % (2.0-8.0); NEUTROPHILS % 69.7 % (40.0-76.0); PLATELET 205 x1000/uL (130-400); RED BLOOD CELL COUNT 3.64 mill/uL (4.7-6.1); RED CELL DISTRIBUTION WIDTH 14.6 % (11.6-14.6)
[2019-01-12 04:35] LABS: INR 1.1; PROTHROMBIN TIME 11.2 sec (9.6-11.0)
[2019-01-12 04:39] LABS: CHLORIDE 110 mEq/L (98-107)
[2019-01-12 04:46] LABS: ETHANOL BLOOD < 10 mg/dL
[2019-01-12 06:30] VITALS: BP 140/65
[2019-01-12 06:56] LABS: *AMPHETAMINES SCREEN URINE NEGATIVE (NEGATIVE); *BARBITURATES SCREEN URINE NEGATIVE (NEGATIVE); *BENZODIAZEPINES SCREEN URINE NEGATIVE (NEGATIVE); *COCAINE SCREEN URINE NEGATIVE (NEGATIVE); METHADONE URINE SCREEN NEGATIVE (NEGATIVE); OPIATES URINE SCREEN NEGATIVE (NEGATIVE)
[2019-01-12 06:57] LABS: CANNABINOID URINE SCREEN NEGATIVE (NEGATIVE); PHENCYCLIDINE URINE SCREEN PRESUMTIVE POSITIVE (NEGATIVE)
== END 2019-01-12 06:30 | disposition home or self-care (01) ==
LOC: ER 00:07
DX: K29.70 Gastritis, unspecified, without bleeding (principal); M54.5 Low back pain; R60.0 Localized edema; I10 Essential (primary) hypertension; F17.200 Nicotine dependence, unspecified, uncomplicated; Z98.890 Other specified postprocedural states; Z79.899 Other long term (current) drug therapy
CPT/HCPCS: 36415; 80305; 80320; 83605; 84484; 86850; 86900; 93005; 99284; G0480

== ENCOUNTER 2019-01-12 21:30 | Emergency (ER) | payer MEDICAID ==
[~2019-01-12] VITALS: Ht 182.9 cm; Wt 102.0 kg
[2019-01-13 06:31] VITALS: BP 143/97
== END 2019-01-13 06:32 | disposition home or self-care (01) ==
LOC: ER 21:30
DX: S46.911A Strain of unspecified muscle, fascia and tendon at shoulder and upper arm level, right arm, initial encounter (principal); I10 Essential (primary) hypertension; W01.0XXA Fall on same level from slipping, tripping and stumbling without subsequent striking against object, initial encounter; Y93.89 Activity, other specified; Y92.89 Other specified places as the place of occurrence of the external cause; F16.10 Hallucinogen abuse, uncomplicated; F17.210 Nicotine dependence, cigarettes, uncomplicated
CPT/HCPCS: 99283

== ENCOUNTER 2019-01-13 21:04 | Emergency (ER) | payer MEDICAID ==
[~2019-01-13] VITALS: Ht 182.9 cm; Wt 105.0 kg
[2019-01-13 21:57] VITALS: BP 124/73
[2019-01-14] MEDS ORDERED: NAPROXEN 250MG TABLET PO ONE (00:45)
== END 2019-01-14 01:33 | disposition home or self-care (01) ==
LOC: ER 21:04
DX: M54.5 Low back pain (principal); G89.29 Other chronic pain; I10 Essential (primary) hypertension; F17.200 Nicotine dependence, unspecified, uncomplicated; Z98.890 Other specified postprocedural states; Z79.899 Other long term (current) drug therapy
CPT/HCPCS: 99282

== ENCOUNTER 2019-01-16 10:53 | Emergency (ER) | payer MEDICAID ==
[~2019-01-16] VITALS: Ht 182.9 cm; Wt 78.0 kg
[2019-01-16 15:30] VITALS: BP 138/78
== END 2019-01-16 15:45 | disposition home or self-care (01) ==
LOC: ER 11:02
DX: I86.8 Varicose veins of other specified sites (principal); E11.9 Type 2 diabetes mellitus without complications; I10 Essential (primary) hypertension; Z79.899 Other long term (current) drug therapy
CPT/HCPCS: 99283; A4217; Z7610

== ENCOUNTER 2019-01-19 17:49 | Emergency (ER) | payer MEDICAID ==
[~2019-01-19] VITALS: Ht 182.9 cm; Wt 86.0 kg
[2019-01-20 05:30] VITALS: BP 141/83
== END 2019-01-20 05:33 | disposition home or self-care (01) ==
LOC: ER 18:29
DX: R05 Cough (principal); R09.81 Nasal congestion; E11.9 Type 2 diabetes mellitus without complications; I10 Essential (primary) hypertension
CPT/HCPCS: 99283

== ENCOUNTER 2019-01-23 21:30 | Emergency (ER) | payer MEDICAID ==
[~2019-01-23] VITALS: Ht 180.3 cm; Wt 75.0 kg
[2019-01-24] MEDS ORDERED: ACETAMINOPHEN 325MG TABLET PO ONE (05:30)
[2019-01-24 06:30] VITALS: BP 147/71
== END 2019-01-24 06:30 | disposition home or self-care (01) ==
LOC: ER 21:30
DX: R10.13 Epigastric pain (principal); R07.89 Other chest pain; R03.0 Elevated blood-pressure reading, without diagnosis of hypertension
CPT/HCPCS: 93005; 99283

== ENCOUNTER 2019-01-29 10:59 | Emergency (ER) | payer MEDICAID ==
[~2019-01-29] VITALS: Ht 180.3 cm; Wt 90.0 kg
[2019-01-29 11:14] VITALS: BP 154/82
== END 2019-01-29 14:01 | disposition left against medical advice (07) ==
LOC: ER 10:59
DX: F10.129 Alcohol abuse with intoxication, unspecified (principal); Z53.21 Procedure and treatment not carried out due to patient leaving prior to being seen by health care provider; Y90.9 Presence of alcohol in blood, level not specified

== ENCOUNTER 2019-02-03 15:05 | Emergency (ER) | payer MEDICAID ==
[~2019-02-03] VITALS: Ht 177.8 cm; Wt 90.0 kg
[2019-02-03 15:07] VITALS: BP 140/91
== END 2019-02-03 21:39 | disposition left against medical advice (07) ==
LOC: ER 15:05
DX: Z53.21 Procedure and treatment not carried out due to patient leaving prior to being seen by health care provider (principal)

== ENCOUNTER 2019-03-02 17:01 | Emergency (ER) | payer MEDICAID ==
[~2019-03-02] VITALS: Ht 182.9 cm; Wt 73.0 kg
[2019-03-02] MEDS ORDERED: HYDROCODONE/ACETAMINOPHEN 5/325MG TABLET PO ONE (18:45)
[2019-03-02 21:25] VITALS: BP 148/91
== END 2019-03-02 21:30 | disposition home or self-care (01) ==
LOC: ER 17:01
DX: R07.89 Other chest pain (principal); I10 Essential (primary) hypertension
CPT/HCPCS: 93005; 99283

== ENCOUNTER 2020-02-15 18:05 | Emergency (ER) | payer MEDICAID ==
[~2020-02-15] VITALS: Ht 180.3 cm; Wt 75.0 kg
[~2020-02-15 18:05] MED LIST changes: +AMLO5TAB88 PO; +ASPI-1158 PO; +CLON-457 MT; +FURO40TA5 PO
[2020-02-15] MEDS ORDERED: IBUPROFEN 600MG TABLET PO STA (18:28)
[2020-02-15 19:12] LABS: BASOPHILS % 1.2 % (0.0-2.0); EOSINOPHILS % 12.7 % (0.0-5.0); HEMATOCRIT. 36.8 % (42.0-52.0); HEMOGLOBIN. 12.4 g/dL (14.0-18.0); LYMPHOCYTES % 19.9 % (20.0-50.0); MEAN CORPUSCULAR HEMOGLOBIN 35.4 pg (28.0-32.0); MEAN CORPUSCULAR VOLUME 105.5 fL (80.0-94.0); MEAN PLATELET VOLUME 7.5 fl (7.4-10.4); MONOCYTES % 6.5 % (2.0-8.0); NEUTROPHILS % 59.7 % (40.0-76.0); PLATELET 228 x1000/uL (130-400); RED BLOOD CELL COUNT 3.49 mill/uL (4.7-6.1); RED CELL DISTRIBUTION WIDTH 15.1 % (11.6-14.6)
[2020-02-15 19:16] LABS: CHLORIDE 109 mEq/L (98-107)
[2020-02-15 19:21] LABS: ETHANOL BLOOD < 10 mg/dL
[2020-02-15 22:00] VITALS: BP 135/71
[2020-02-15 22:03] LABS: CLARITY URINE CLEAR (CLEAR); COLOR URINE YELLOW (YELLOW); KETONES URINE NEGATIVE (NEGATIVE); LEUKOCYTE ESTERASE URINE NEGATIVE (NEGATIVE); NITRITE URINE NEGATIVE (NEGATIVE); OCCULT BLOOD URINE NEGATIVE (NEGATIVE); PH URINE 5.5 (4.5-8.0); PROTEIN URINE 1+ (NEGATIVE); SPECIFIC GRAVITY URINE 1.019 (1.005-1.030)
[2020-03-19] MEDS ORDERED: NIFE-32 PO (13:43)
== END 2020-02-15 22:01 | disposition home or self-care (01) ==
LOC: ER 18:05
DX: K40.90 Unilateral inguinal hernia, without obstruction or gangrene, not specified as recurrent (principal); I10 Essential (primary) hypertension; Z79.899 Other long term (current) drug therapy
CPT/HCPCS: 36415; 74176; 80053; 80320; 81003; 85025; 85610; 99284; A4217; Z7610; G0480

== ENCOUNTER 2020-02-21 19:39 | Emergency (ER) | payer MEDICAID ==
[~2020-02-21] VITALS: Ht 182.9 cm; Wt 102.0 kg
[2020-02-21 20:11] VITALS: BP 108/70
[2020-02-21] MEDS ORDERED: ACETAMINOPHEN 650MG/20.3ML UDC PO ONE (20:15)
[2020-02-21] MEDS ORDERED: LIDOCAINE 5% PATCH TOP SCH (20:15)
[2020-02-21] MEDS ORDERED: IBUPROFEN 400MG TABLET PO ONE (20:15)
== END 2020-02-21 21:13 | disposition home or self-care (01) ==
LOC: ER 19:48
DX: M54.6 Pain in thoracic spine (principal)
CPT/HCPCS: 93005; 99284

== ENCOUNTER 2020-02-22 12:33 | Inpatient (IN) | payer MEDICAID ==
[~2020-02-22] VITALS: Ht 182.9 cm; Wt 120.2 kg
[2020-02-22 13:38] LABS: BASOPHILS % 1.2 % (0.0-2.0); EOSINOPHILS % 8.9 % (0.0-5.0); HEMATOCRIT. 34.7 % (42.0-52.0); HEMOGLOBIN. 11.5 g/dL (14.0-18.0); LYMPHOCYTES % 17.6 % (20.0-50.0); MEAN CORPUSCULAR HEMOGLOBIN 34.7 pg (28.0-32.0); MEAN CORPUSCULAR VOLUME 104.5 fL (80.0-94.0); MEAN PLATELET VOLUME 7.9 fl (7.4-10.4); MONOCYTES % 8.1 % (2.0-8.0); NEUTROPHILS % 64.2 % (40.0-76.0); PLATELET 222 x1000/uL (130-400); RED BLOOD CELL COUNT 3.32 mill/uL (4.7-6.1); RED CELL DISTRIBUTION WIDTH 14.3 % (11.6-14.6)
[2020-02-22 13:45] LABS: CHLORIDE 107 mEq/L (98-107)
[2020-02-22] MEDS ORDERED: FUROSEMIDE 40MG/4ML VIAL IVP ONE (15:15)
[2020-02-22] MEDS ORDERED: ASPIRIN 325MG EC TABLET PO ONE (15:30)
[2020-02-22] MEDS ORDERED: ATORVASTATIN CALCIUM 40MG TABLET PO SCH (21:00)
[2020-02-22 23:00] VITALS: BP 148/71
[2020-02-23] VITALS: BP 146/56
[2020-02-23] MEDS ORDERED: HYDROCODONE/ACETAMINOPHEN 5/325MG TABLET PO PRN (00:15)
[2020-02-23 04:30] VITALS: BP 105/52
[2020-02-23 07:14] LABS: BASOPHILS % 0.7 % (0.0-2.0); EOSINOPHILS % 11.5 % (0.0-5.0); HEMATOCRIT. 36.8 % (42.0-52.0); HEMOGLOBIN. 12.3 g/dL (14.0-18.0); MEAN CORPUSCULAR VOLUME 104.8 fL (80.0-94.0); MEAN PLATELET VOLUME 8.4 fl (7.4-10.4); MONOCYTES % 8.8 % (2.0-8.0); PLATELET 218 x1000/uL (130-400); RED BLOOD CELL COUNT 3.51 mill/uL (4.7-6.1); RED CELL DISTRIBUTION WIDTH 14.2 % (11.6-14.6)
[2020-02-23 07:19] LABS: CHLORIDE 106 mEq/L (98-107)
[2020-02-23 08:00] VITALS: BP 143/81
[2020-02-23] MEDS: AMLODIPINE 10MG TABLET PO SCH (08:05)
[2020-02-23] MEDS ORDERED: LISINOPRIL 10MG TABLET PO SCH (09:00)
[2020-02-23] MEDS ORDERED: ASPIRIN 325MG EC TABLET PO SCH (09:00)
[2020-02-23] MEDS ORDERED: FUROSEMIDE 40MG/4ML VIAL IVP SCH (09:00)
[2020-02-23] MEDS ORDERED: CARVEDILOL 3.125 MG TABLET PO SCH (09:00)
[2020-02-23 12:00] VITALS: BP 107/52
[2020-02-23 16:05] VITALS: BP 119/71
[2020-02-23 20:00] VITALS: BP 122/60
[2020-02-23] MEDS ORDERED: RIVAROXABAN 20 MG TABLET PO SCH (21:00)
[2020-02-24 04:00] VITALS: BP 130/70
[2020-02-24 05:02] LABS: *AMPHETAMINES SCREEN URINE NEGATIVE (NEGATIVE)
[2020-02-24 05:03] LABS: *BARBITURATES SCREEN URINE NEGATIVE (NEGATIVE); *BENZODIAZEPINES SCREEN URINE PRESUMTIVE POSITIVE (NEGATIVE); *COCAINE SCREEN URINE NEGATIVE (NEGATIVE); CANNABINOID URINE SCREEN NEGATIVE (NEGATIVE); METHADONE URINE SCREEN NEGATIVE (NEGATIVE); OPIATES URINE SCREEN NEGATIVE (NEGATIVE); PHENCYCLIDINE URINE SCREEN PRESUMTIVE POSITIVE (NEGATIVE)
[2020-02-24 08:00] VITALS: BP 123/61
[2020-02-24] MEDS ORDERED: FUROSEMIDE 40MG/4ML VIAL IVP SCH (09:00)
[2020-02-24] MEDS: AMLODIPINE 10MG TABLET PO SCH (09:45)
[2020-02-24 12:00] VITALS: BP 120/61
[2020-02-24 12:14] VITALS: BP 128/62
[2020-03-19] MEDS ORDERED: NIFE-32 PO (13:43)
== END 2020-02-24 15:55 | disposition home or self-care (01) | DRG 194 ==
LOC: ER 12:48 → 6WST 18:16 → EDBEDREQTM 18:18 → EDBEDREQ 18:18 → ENRESERV 20:12
PROVIDERS: ADMIT Internal Medicine; ATTEND Internal Medicine
DX: I11.0 Hypertensive heart disease with heart failure (principal); E44.1 Mild protein-calorie malnutrition; D63.8 Anemia in other chronic diseases classified elsewhere; E66.9 Obesity, unspecified; F16.90 Hallucinogen use, unspecified, uncomplicated; F17.210 Nicotine dependence, cigarettes, uncomplicated; I50.31 Acute diastolic (congestive) heart failure; I27.20 Pulmonary hypertension, unspecified; I49.3 Ventricular premature depolarization; N17.0 Acute kidney failure with tubular necrosis; Z82.49 Family history of ischemic heart disease and other diseases of the circulatory system; Z83.3 Family history of diabetes mellitus; Z86.711 Personal history of pulmonary embolism; Z86.718 Personal history of other venous thrombosis and embolism; Z68.35 Body mass index [BMI] 35.0-35.9, adult; Z79.01 Long term (current) use of anticoagulants; Z71.3 Dietary counseling and surveillance; Z79.82 Long term (current) use of aspirin; Z79.899 Other long term (current) drug therapy
CPT/HCPCS: 36415; 71045; 76770; 80048; 80053; 80305; 83880; 84484; 85025; 93005; 93970; 96374; 99285; J1940

== ENCOUNTER 2020-02-24 20:35 | Emergency (ER) | payer MEDICAID ==
[~2020-02-24] VITALS: Ht 180.3 cm; Wt 87.0 kg
[2020-02-24 21:47] LABS: BASOPHILS % 0.6 % (0.0-2.0); EOSINOPHILS % 5.1 % (0.0-5.0); HEMATOCRIT. 36.9 % (42.0-52.0); HEMOGLOBIN. 12.3 g/dL (14.0-18.0); LYMPHOCYTES % 15.3 % (20.0-50.0); MEAN CORPUSCULAR HEMOGLOBIN 34.7 pg (28.0-32.0); MEAN CORPUSCULAR VOLUME 104.5 fL (80.0-94.0); MEAN PLATELET VOLUME 8.1 fl (7.4-10.4); MONOCYTES % 8.3 % (2.0-8.0); NEUTROPHILS % 70.7 % (40.0-76.0); PLATELET 227 x1000/uL (130-400); RED BLOOD CELL COUNT 3.53 mill/uL (4.7-6.1); RED CELL DISTRIBUTION WIDTH 14.2 % (11.6-14.6)
[2020-02-24 21:55] LABS: CHLORIDE 104 mEq/L (98-107)
[2020-02-25 02:00] VITALS: BP 124/72
[2020-03-19] MEDS ORDERED: NIFE-32 PO (13:43)
== END 2020-02-25 02:52 | disposition home or self-care (01) ==
LOC: ER 20:35
DX: R07.89 Other chest pain (principal); D64.9 Anemia, unspecified; R79.89 Other specified abnormal findings of blood chemistry; I10 Essential (primary) hypertension; Z86.718 Personal history of other venous thrombosis and embolism; Z79.01 Long term (current) use of anticoagulants; Z79.899 Other long term (current) drug therapy
CPT/HCPCS: 36415; 71045; 80053; 83880; 84484; 85025; 93005; 99285

== ENCOUNTER 2020-02-27 04:31 | Emergency (ER) | payer MEDICAID ==
[~2020-02-27] VITALS: Ht 182.9 cm; Wt 82.0 kg
[~2020-02-27 04:31] MED LIST changes: -CLON-457 MT; -CLON-457 PO
[2020-02-27] MEDS ORDERED: IBUPROFEN 600MG TABLET PO STA (07:25)
[2020-02-27 08:04] LABS: BASOPHILS % 0.8 % (0.0-2.0); EOSINOPHILS % 8.7 % (0.0-5.0); HEMATOCRIT. 38.1 % (42.0-52.0); HEMOGLOBIN. 12.7 g/dL (14.0-18.0); LYMPHOCYTES % 18.7 % (20.0-50.0); MEAN CORPUSCULAR HEMOGLOBIN 34.9 pg (28.0-32.0); MEAN CORPUSCULAR VOLUME 105.1 fL (80.0-94.0); MEAN PLATELET VOLUME 8.4 fl (7.4-10.4); MONOCYTES % 6.7 % (2.0-8.0); NEUTROPHILS % 65.1 % (40.0-76.0); PLATELET 247 x1000/uL (130-400); RED BLOOD CELL COUNT 3.62 mill/uL (4.7-6.1); RED CELL DISTRIBUTION WIDTH 14.3 % (11.6-14.6)
[2020-02-27 08:09] LABS: CHLORIDE 106 mEq/L (98-107)
[2020-02-27 08:10] LABS: CLARITY URINE CLEAR (CLEAR); COLOR URINE YELLOW (YELLOW); KETONES URINE NEGATIVE (NEGATIVE); LEUKOCYTE ESTERASE URINE NEGATIVE (NEGATIVE); NITRITE URINE NEGATIVE (NEGATIVE); OCCULT BLOOD URINE NEGATIVE (NEGATIVE); PROTEIN URINE TRACE (NEGATIVE); SPECIFIC GRAVITY URINE 1.021 (1.005-1.030)
[2020-02-27 08:13] LABS: ETHANOL BLOOD < 10 mg/dL
[2020-02-27 08:47] LABS: *AMPHETAMINES SCREEN URINE NEGATIVE (NEGATIVE); *BARBITURATES SCREEN URINE NEGATIVE (NEGATIVE)
[2020-02-27 08:49] LABS: *BENZODIAZEPINES SCREEN URINE PRESUMTIVE POSITIVE (NEGATIVE); *COCAINE SCREEN URINE NEGATIVE (NEGATIVE); CANNABINOID URINE SCREEN NEGATIVE (NEGATIVE); METHADONE URINE SCREEN NEGATIVE (NEGATIVE); OPIATES URINE SCREEN NEGATIVE (NEGATIVE); PHENCYCLIDINE URINE SCREEN PRESUMTIVE POSITIVE (NEGATIVE)
[2020-02-27 13:55] VITALS: BP 127/75
== END 2020-02-27 17:50 | disposition home or self-care (01) ==
LOC: ER 04:31
DX: R07.89 Other chest pain (principal); K40.91 Unilateral inguinal hernia, without obstruction or gangrene, recurrent; R03.0 Elevated blood-pressure reading, without diagnosis of hypertension
CPT/HCPCS: 36415; 71045; 80053; 80305; 80320; 81003; 84484; 85025; 93005; 99285; G0480

== ENCOUNTER 2020-02-28 14:09 | Emergency (ER) | payer MEDICAID ==
[~2020-02-28] VITALS: Ht 177.8 cm; Wt 87.0 kg
[2020-02-28] MEDS ORDERED: ONDANSETRON HCL 4MG/2ML INJ IV ONE (15:00)
[2020-02-28] MEDS ORDERED: MORPHINE SULFATE 4 MG/ML CPJ (NOT FOR IM USE) IV ONE (15:00)
[2020-02-28 15:14] LABS: BASOPHILS % 1.1 % (0.0-2.0); EOSINOPHILS % 5.6 % (0.0-5.0); HEMATOCRIT. 34.4 % (42.0-52.0); HEMOGLOBIN. 11.4 g/dL (14.0-18.0); MEAN CORPUSCULAR HEMOGLOBIN 34.8 pg (28.0-32.0); MEAN CORPUSCULAR VOLUME 105.1 fL (80.0-94.0); MEAN PLATELET VOLUME 8.6 fl (7.4-10.4); MONOCYTES % 5.9 % (2.0-8.0); NEUTROPHILS % 68.4 % (40.0-76.0); PLATELET 248 x1000/uL (130-400); RED BLOOD CELL COUNT 3.27 mill/uL (4.7-6.1)
[2020-02-28 15:16] LABS: CHLORIDE 108 mEq/L (98-107)
[2020-02-28 15:20] LABS: ETHANOL BLOOD < 10 mg/dL
[2020-02-28 15:25] LABS: CLARITY URINE CLEAR (CLEAR); COLOR URINE YELLOW (YELLOW); KETONES URINE TRACE (NEGATIVE); LEUKOCYTE ESTERASE URINE 1+ (NEGATIVE); NITRITE URINE NEGATIVE (NEGATIVE); OCCULT BLOOD URINE NEGATIVE (NEGATIVE); PH URINE 5.5 (4.5-8.0); PROTEIN URINE 1+ (NEGATIVE); SPECIFIC GRAVITY URINE 1.019 (1.005-1.030)
[2020-02-28 15:40] LABS: *AMPHETAMINES SCREEN URINE NEGATIVE (NEGATIVE); *BARBITURATES SCREEN URINE NEGATIVE (NEGATIVE); CANNABINOID URINE SCREEN NEGATIVE (NEGATIVE); PHENCYCLIDINE URINE SCREEN PRESUMTIVE POSITIVE (NEGATIVE)
[2020-02-28 15:41] LABS: *BENZODIAZEPINES SCREEN URINE PRESUMTIVE POSITIVE (NEGATIVE); *COCAINE SCREEN URINE NEGATIVE (NEGATIVE); METHADONE URINE SCREEN NEGATIVE (NEGATIVE); OPIATES URINE SCREEN NEGATIVE (NEGATIVE)
[2020-02-28] MEDS ORDERED: FUROSEMIDE 40MG/4ML VIAL IVP ONE (16:15)
[2020-02-28 18:30] VITALS: BP 143/80
[2020-03-19] MEDS ORDERED: NIFE-32 PO (13:43)
== END 2020-02-28 18:57 | disposition home or self-care (01) ==
LOC: ER 14:29
DX: R07.89 Other chest pain (principal); I11.0 Hypertensive heart disease with heart failure; I50.9 Heart failure, unspecified; N39.0 Urinary tract infection, site not specified; F16.129 Hallucinogen abuse with intoxication, unspecified; F13.120 Sedative, hypnotic or anxiolytic abuse with intoxication, uncomplicated; D64.9 Anemia, unspecified; Z86.718 Personal history of other venous thrombosis and embolism
CPT/HCPCS: 36415; 71045; 80053; 80305; 80320; 81003; 83880; 84484; 85025; 93005; 96374; 96375; 99285; J1940; J2270; J2405; G0480

== ENCOUNTER 2020-02-28 23:32 | Emergency (ER) | payer MEDICAID ==
[~2020-02-28] VITALS: Ht 177.8 cm; Wt 75.0 kg
[~2020-02-28 23:32] MED LIST changes: +CLON-457 MT; +CLON-457 PO
[2020-02-29] MEDS ORDERED: SODIUM CHLORIDE 0.9% 500 ML IV ONE
[2020-02-29 00:39] LABS: BASOPHILS % 0.8 % (0.0-2.0); EOSINOPHILS % 5.2 % (0.0-5.0); HEMATOCRIT. 33.4 % (42.0-52.0); HEMOGLOBIN. 11.3 g/dL (14.0-18.0); LYMPHOCYTES % 23.3 % (20.0-50.0); MEAN CORPUSCULAR HEMOGLOBIN 35.3 pg (28.0-32.0); MEAN CORPUSCULAR VOLUME 103.9 fL (80.0-94.0); MEAN PLATELET VOLUME 9.6 fl (7.4-10.4); MONOCYTES % 7.8 % (2.0-8.0); NEUTROPHILS % 62.9 % (40.0-76.0); PLATELET 362 x1000/uL (130-400); RED BLOOD CELL COUNT 3.22 mill/uL (4.7-6.1); RED CELL DISTRIBUTION WIDTH 14.1 % (11.6-14.6)
[2020-02-29 01:14] LABS: CHLORIDE 106 mEq/L (98-107)
[2020-02-29 01:18] LABS: ETHANOL BLOOD < 10 mg/dL
[2020-02-29 01:30] LABS: CLARITY URINE CLEAR (CLEAR); COLOR URINE YELLOW (YELLOW); KETONES URINE NEGATIVE (NEGATIVE); LEUKOCYTE ESTERASE URINE TRACE (NEGATIVE); NITRITE URINE NEGATIVE (NEGATIVE); OCCULT BLOOD URINE NEGATIVE (NEGATIVE); PROTEIN URINE NEGATIVE (NEGATIVE); SPECIFIC GRAVITY URINE 1.017 (1.005-1.030)
[2020-02-29 01:44] LABS: *AMPHETAMINES SCREEN URINE NEGATIVE (NEGATIVE); *BARBITURATES SCREEN URINE NEGATIVE (NEGATIVE); *BENZODIAZEPINES SCREEN URINE PRESUMTIVE POSITIVE (NEGATIVE); *COCAINE SCREEN URINE NEGATIVE (NEGATIVE); CANNABINOID URINE SCREEN NEGATIVE (NEGATIVE); METHADONE URINE SCREEN NEGATIVE (NEGATIVE); OPIATES URINE SCREEN PRESUMTIVE POSITIVE (NEGATIVE); PHENCYCLIDINE URINE SCREEN PRESUMTIVE POSITIVE (NEGATIVE)
[2020-02-29 02:21] VITALS: BP 126/70
[2020-03-19] MEDS ORDERED: NIFE-32 PO (13:43)
== END 2020-02-29 02:25 | disposition home or self-care (01) ==
LOC: ER 23:32
DX: R42 Dizziness and giddiness (principal); F10.129 Alcohol abuse with intoxication, unspecified; Y90.0 Blood alcohol level of less than 20 mg/100 ml; E11.9 Type 2 diabetes mellitus without complications; I10 Essential (primary) hypertension; Z79.899 Other long term (current) drug therapy
CPT/HCPCS: 36415; 80053; 80305; 80320; 81003; 83880; 84484; 85025; 93005; 96360; 96361; 99284; J7040; G0480

== ENCOUNTER 2020-02-29 14:17 | Emergency (ER) | payer MEDICAID ==
[~2020-02-29] VITALS: Ht 165.1 cm; Wt 75.0 kg
[~2020-02-29 14:17] MED LIST changes: -CLON-457 MT; -CLON-457 PO
[2020-02-29] MEDS ORDERED: ACETAMINOPHEN 325MG TABLET PO ONE (14:45)
[2020-02-29 15:30] LABS: EOSINOPHILS % 5.3 % (0.0-5.0); HEMATOCRIT. 33.7 % (42.0-52.0); HEMOGLOBIN. 11.3 g/dL (14.0-18.0); LYMPHOCYTES % 27.5 % (20.0-50.0); MEAN CORPUSCULAR HEMOGLOBIN 35.1 pg (28.0-32.0); MEAN CORPUSCULAR VOLUME 104.5 fL (80.0-94.0); MEAN PLATELET VOLUME 8.5 fl (7.4-10.4); MONOCYTES % 7.5 % (2.0-8.0); NEUTROPHILS % 58.7 % (40.0-76.0); PLATELET 231 x1000/uL (130-400); RED BLOOD CELL COUNT 3.22 mill/uL (4.7-6.1); RED CELL DISTRIBUTION WIDTH 13.8 % (11.6-14.6)
[2020-02-29 15:32] LABS: CHLORIDE 108 mEq/L (98-107)
[2020-02-29 15:39] LABS: INR 1.1; PROTHROMBIN TIME 11.2 sec (9.6-11.0)
[2020-02-29] MEDS ORDERED: FUROSEMIDE 40MG TABLET PO ONE (15:45)
[2020-02-29 18:26] VITALS: BP 141/67
[2020-03-19] MEDS ORDERED: NIFE-32 PO (13:43)
== END 2020-02-29 18:50 | disposition home or self-care (01) ==
LOC: ER 14:23
DX: I11.0 Hypertensive heart disease with heart failure (principal); I50.9 Heart failure, unspecified; I48.91 Unspecified atrial fibrillation; E11.9 Type 2 diabetes mellitus without complications; Z79.899 Other long term (current) drug therapy
CPT/HCPCS: 36415; 71045; 80053; 83880; 84484; 85025; 93005; 99285

== ENCOUNTER 2020-03-02 14:58 | Emergency (ER) | payer MEDICAID ==
[~2020-03-02] VITALS: Ht 172.7 cm; Wt 80.0 kg
[2020-03-02] MEDS ORDERED: ASPIRIN 81MG TABLET PO ONE (15:15)
[2020-03-02] MEDS ORDERED: ACETAMINOPHEN 325MG TABLET PO STA (15:23)
[2020-03-02] MEDS ORDERED: MAGNESIUM/ALUMINUM HYDROXIDE/SIMETHICONE 30ML UDC PO STA (15:23)
[2020-03-02 16:07] LABS: BASOPHILS % 0.8 % (0.0-2.0); EOSINOPHILS % 4.1 % (0.0-5.0); HEMATOCRIT. 34.9 % (42.0-52.0); HEMOGLOBIN. 11.7 g/dL (14.0-18.0); LYMPHOCYTES % 24.1 % (20.0-50.0); MEAN CORPUSCULAR VOLUME 104.4 fL (80.0-94.0); MEAN PLATELET VOLUME 8.3 fl (7.4-10.4); MONOCYTES % 7.5 % (2.0-8.0); NEUTROPHILS % 63.5 % (40.0-76.0); PLATELET 253 x1000/uL (130-400); RED BLOOD CELL COUNT 3.34 mill/uL (4.7-6.1); RED CELL DISTRIBUTION WIDTH 13.9 % (11.6-14.6)
[2020-03-02 16:34] LABS: CHLORIDE 108 mEq/L (98-107)
[2020-03-02] MEDS ORDERED: FUROSEMIDE 20MG TABLET PO ONE (17:15)
[2020-03-02] MEDS ORDERED: FAMOTIDINE 20MG TABLET PO ONE (17:15)
[2020-03-02] MEDS ORDERED: IBUPROFEN 600MG TABLET PO ONE (17:30)
[2020-03-02 19:00] VITALS: BP 130/87
== END 2020-03-03 06:17 | disposition home or self-care (01) ==
LOC: ER 14:58
DX: K40.91 Unilateral inguinal hernia, without obstruction or gangrene, recurrent (principal); R07.89 Other chest pain; R79.89 Other specified abnormal findings of blood chemistry
CPT/HCPCS: 36415; 71045; 80053; 83880; 84484; 85025; 93005; 99285; Z7610

== ENCOUNTER 2020-03-03 13:03 | Emergency (ER) | payer MEDICAID ==
[~2020-03-03] VITALS: Ht 182.9 cm; Wt 102.0 kg
[2020-03-03 13:13] VITALS: BP 124/71
[2020-03-03] MEDS ORDERED: ACETAMINOPHEN 500MG TABLET PO ONE (14:30)
== END 2020-03-03 14:33 | disposition home or self-care (01) ==
LOC: ER 13:03
DX: M79.604 Pain in right leg (principal)
CPT/HCPCS: 93005; 99283

== ENCOUNTER 2020-03-03 19:37 | Emergency (ER) | payer MEDICAID ==
[~2020-03-03] VITALS: Ht 182.9 cm; Wt 87.0 kg
[2020-03-03] MEDS ORDERED: IBUPROFEN 600MG TABLET PO ONE (22:15)
[2020-03-03 22:20] VITALS: BP 127/82
[2020-03-03 22:32] LABS: CLARITY URINE CLEAR (CLEAR); COLOR URINE YELLOW (YELLOW); KETONES URINE NEGATIVE (NEGATIVE); LEUKOCYTE ESTERASE URINE NEGATIVE (NEGATIVE); NITRITE URINE NEGATIVE (NEGATIVE); OCCULT BLOOD URINE NEGATIVE (NEGATIVE); PH URINE 5.5 (4.5-8.0); PROTEIN URINE NEGATIVE (NEGATIVE); SPECIFIC GRAVITY URINE 1.016 (1.005-1.030); UROBILINOGEN URINE 0.2 E.U./dL (0.2-1.0)
== END 2020-03-04 03:12 | disposition home or self-care (01) ==
LOC: ER 19:37
DX: K40.90 Unilateral inguinal hernia, without obstruction or gangrene, not specified as recurrent (principal); E11.9 Type 2 diabetes mellitus without complications; I10 Essential (primary) hypertension; Z79.82 Long term (current) use of aspirin; Z79.899 Other long term (current) drug therapy
CPT/HCPCS: 76870; 81003; 93976; 99284

== ENCOUNTER 2020-03-04 17:47 | Emergency (ER) | payer MEDICAID ==
[~2020-03-04] VITALS: Ht 188 cm; Wt 105.0 kg
[2020-03-04 19:08] VITALS: BP 123/75
== END 2020-03-04 19:10 | disposition home or self-care (01) ==
LOC: ER 17:47
DX: K40.90 Unilateral inguinal hernia, without obstruction or gangrene, not specified as recurrent (principal); E11.9 Type 2 diabetes mellitus without complications; I10 Essential (primary) hypertension; Z79.899 Other long term (current) drug therapy; Z79.82 Long term (current) use of aspirin
CPT/HCPCS: 99283

== ENCOUNTER 2020-03-05 17:29 | Emergency (ER) | payer MEDICAID ==
[~2020-03-05] VITALS: Ht 182.9 cm; Wt 104.3 kg
[2020-03-05 17:40] VITALS: BP 114/64
[2020-03-05] MEDS ORDERED: ACETAMINOPHEN 325MG TABLET PO ONE (18:00)
== END 2020-03-05 18:58 | disposition home or self-care (01) ==
LOC: ER 17:29
DX: K40.91 Unilateral inguinal hernia, without obstruction or gangrene, recurrent (principal); I10 Essential (primary) hypertension; E11.9 Type 2 diabetes mellitus without complications
CPT/HCPCS: 99283

== ENCOUNTER 2020-03-07 15:33 | Emergency (ER) | payer MEDICAID ==
[~2020-03-07] VITALS: Ht 182.9 cm; Wt 107.0 kg
[2020-03-07] MEDS ORDERED: ASPIRIN 81MG TABLET PO ONE (16:45)
[2020-03-07 17:10] LABS: CHLORIDE 108 mEq/L (98-107)
[2020-03-07 17:12] LABS: EOSINOPHILS % 4.7 % (0.0-5.0); HEMATOCRIT. 36.5 % (42.0-52.0); HEMOGLOBIN. 12.1 g/dL (14.0-18.0); LYMPHOCYTES % 19.2 % (20.0-50.0); MEAN CORPUSCULAR HEMOGLOBIN 34.5 pg (28.0-32.0); MEAN CORPUSCULAR VOLUME 104.2 fL (80.0-94.0); MEAN PLATELET VOLUME 9.2 fl (7.4-10.4); MONOCYTES % 7.6 % (2.0-8.0); NEUTROPHILS % 67.5 % (40.0-76.0); PLATELET 254 x1000/uL (130-400); RED CELL DISTRIBUTION WIDTH 14.2 % (11.6-14.6)
[2020-03-07 19:30] VITALS: BP 127/78
== END 2020-03-07 20:08 | disposition home or self-care (01) ==
LOC: ER 15:33
DX: K40.90 Unilateral inguinal hernia, without obstruction or gangrene, not specified as recurrent (principal); R07.89 Other chest pain; E11.9 Type 2 diabetes mellitus without complications; I10 Essential (primary) hypertension; Z79.899 Other long term (current) drug therapy
CPT/HCPCS: 36415; 71045; 74176; 80053; 83880; 84484; 85025; 93005; 99285; Z7610

== ENCOUNTER 2020-03-08 00:57 | Emergency (ER) | payer MEDICAID ==
[~2020-03-08] VITALS: Ht 177.8 cm; Wt 84.0 kg
[2020-03-08 01:14] VITALS: BP 154/82
== END 2020-03-08 01:25 | disposition home or self-care (01) ==
LOC: ER 00:57
DX: R10.30 Lower abdominal pain, unspecified (principal); G89.29 Other chronic pain; R20.0 Anesthesia of skin; I10 Essential (primary) hypertension
CPT/HCPCS: 93005; 99283

== ENCOUNTER 2020-03-08 17:37 | Emergency (ER) | payer MEDICAID ==
[~2020-03-08] VITALS: Ht 182.9 cm; Wt 100.0 kg
[2020-03-08 18:33] VITALS: BP 152/77
== END 2020-03-08 18:34 | disposition home or self-care (01) ==
LOC: ER 17:41
DX: G89.29 Other chronic pain (principal); R07.89 Other chest pain; K40.90 Unilateral inguinal hernia, without obstruction or gangrene, not specified as recurrent; I45.10 Unspecified right bundle-branch block; I10 Essential (primary) hypertension; E11.9 Type 2 diabetes mellitus without complications
CPT/HCPCS: 93005; 99283

== ENCOUNTER 2020-03-09 14:09 | Emergency (ER) | payer MEDICAID ==
[~2020-03-09] VITALS: Ht 167.6 cm; Wt 78.0 kg
[2020-03-09 16:26] LABS: CLARITY URINE CLEAR (CLEAR); COLOR URINE YELLOW (YELLOW); KETONES URINE NEGATIVE (NEGATIVE); LEUKOCYTE ESTERASE URINE 1+ (NEGATIVE); NITRITE URINE NEGATIVE (NEGATIVE); OCCULT BLOOD URINE NEGATIVE (NEGATIVE); PH URINE 5.5 (4.5-8.0); PROTEIN URINE TRACE (NEGATIVE); SPECIFIC GRAVITY URINE 1.021 (1.005-1.030); UROBILINOGEN URINE 0.2 E.U./dL (0.2-1.0)
[2020-03-09] MEDS ORDERED: KETOROLAC 60MG/2ML VIAL IM STA (16:35)
[2020-03-09] MEDS ORDERED: HYDROCODONE/ACETAMINOPHEN 5/325MG TABLET PO STA (16:35)
[2020-03-09 16:43] VITALS: BP 162/98
[2020-03-09] MEDS ORDERED: LIDOCAINE HCL 1% 20ML VIAL (Pyxis) INJ INFIL NR (23:15)
[2020-03-09] MEDS ORDERED: CEFTRIAXONE SODIUM 1 G/VIAL IM NR (23:15)
== END 2020-03-10 05:48 | disposition home or self-care (01) ==
LOC: ER 14:24
DX: K40.91 Unilateral inguinal hernia, without obstruction or gangrene, recurrent (principal); I10 Essential (primary) hypertension; E11.9 Type 2 diabetes mellitus without complications
CPT/HCPCS: 81003; 82962; 96372; 99283; J1885

== ENCOUNTER 2020-03-10 16:21 | Emergency (ER) | payer MEDICAID ==
[~2020-03-10] VITALS: Ht 182.9 cm; Wt 73.0 kg
[2020-03-10 18:05] VITALS: BP 153/82
== END 2020-03-10 20:05 | disposition home or self-care (01) ==
LOC: ER 16:21
DX: K40.91 Unilateral inguinal hernia, without obstruction or gangrene, recurrent (principal); I11.0 Hypertensive heart disease with heart failure; I50.9 Heart failure, unspecified; E11.9 Type 2 diabetes mellitus without complications
CPT/HCPCS: 99283

== ENCOUNTER 2020-03-11 10:42 | Emergency (ER) | payer MEDICAID ==
[~2020-03-11] VITALS: Ht 175.3 cm; Wt 77.0 kg
[2020-03-11] MEDS ORDERED: ACETAMINOPHEN 325MG TABLET PO STA (11:19)
[2020-03-11] MEDS ORDERED: SODIUM CHLORIDE 0.9% 1,000 ML IV ONE (11:19)
[2020-03-11 11:53] LABS: BASOPHILS % 1.6 % (0.0-2.0); EOSINOPHILS % 5.9 % (0.0-5.0); HEMATOCRIT. 37.5 % (42.0-52.0); HEMOGLOBIN. 12.4 g/dL (14.0-18.0); LYMPHOCYTES % 25.6 % (20.0-50.0); MEAN CORPUSCULAR HEMOGLOBIN 34.6 pg (28.0-32.0); MEAN PLATELET VOLUME 8.1 fl (7.4-10.4); MONOCYTES % 6.2 % (2.0-8.0); NEUTROPHILS % 60.7 % (40.0-76.0); PLATELET 204 x1000/uL (130-400); RED BLOOD CELL COUNT 3.57 mill/uL (4.7-6.1); RED CELL DISTRIBUTION WIDTH 14.2 % (11.6-14.6)
[2020-03-11 12:01] LABS: CHLORIDE 107 mEq/L (98-107)
[2020-03-11] MEDS ORDERED: ACETAMINOPHEN 325MG TABLET PO SCH (12:48)
[2020-03-11 16:55] VITALS: BP 136/69
== END 2020-03-11 18:11 | disposition home or self-care (01) ==
LOC: ER 10:42
DX: R07.89 Other chest pain (principal); K40.90 Unilateral inguinal hernia, without obstruction or gangrene, not specified as recurrent; E11.9 Type 2 diabetes mellitus without complications; I10 Essential (primary) hypertension; Z79.899 Other long term (current) drug therapy
CPT/HCPCS: 36415; 71045; 80053; 84484; 85025; 85610; 93005; 96360; 99285; J7030

== ENCOUNTER 2020-03-12 15:22 | Emergency (ER) | payer MEDICAID ==
[~2020-03-12] VITALS: Ht 177.8 cm; Wt 75.0 kg
[2020-03-12 15:27] VITALS: BP 120/70
== END 2020-03-12 20:23 | disposition home or self-care (01) ==
LOC: ER 15:22
DX: K40.90 Unilateral inguinal hernia, without obstruction or gangrene, not specified as recurrent (principal); E11.9 Type 2 diabetes mellitus without complications; I10 Essential (primary) hypertension; Z88.6 Allergy status to analgesic agent
CPT/HCPCS: 93005; 99283

== ENCOUNTER 2020-03-13 18:14 | Emergency (ER) | payer MEDICAID ==
[~2020-03-13] VITALS: Ht 182.9 cm; Wt 84.0 kg
[2020-03-13 22:20] VITALS: BP 145/74
[2020-03-19] MEDS ORDERED: NIFE-32 PO (13:43)
== END 2020-03-14 00:03 | disposition home or self-care (01) ==
LOC: ER 18:14
DX: M48.50XA Collapsed vertebra, not elsewhere classified, site unspecified, initial encounter for fracture (principal); K46.9 Unspecified abdominal hernia without obstruction or gangrene; I10 Essential (primary) hypertension; E11.9 Type 2 diabetes mellitus without complications; Z79.899 Other long term (current) drug therapy
CPT/HCPCS: 72100; 72131; 99284

== ENCOUNTER 2020-03-14 16:14 | Emergency (ER) | payer MEDICAID ==
[~2020-03-14] VITALS: Ht 175.3 cm; Wt 78.0 kg
[2020-03-14 16:27] VITALS: BP 148/76
[2020-03-14] MEDS ORDERED: ACETAMINOPHEN 325MG TABLET PO ONE (18:30)
== END 2020-03-14 18:36 | disposition left against medical advice (07) ==
LOC: ER 16:26
DX: M79.606 Pain in leg, unspecified (principal); E11.9 Type 2 diabetes mellitus without complications; I10 Essential (primary) hypertension; Z79.899 Other long term (current) drug therapy
CPT/HCPCS: 99283

== ENCOUNTER 2020-03-24 13:30 | Emergency (ER) | payer MEDICAID ==
[~2020-03-24] VITALS: Ht 177.8 cm; Wt 90.0 kg
[~2020-03-24 13:30] MED LIST changes: -AMLO5TAB88 PO; -FURO-152 MT; -FURO40TA5 PO; +NIFE-32 PO
[2020-03-24 13:40] VITALS: BP 138/54
== END 2020-03-24 15:31 | disposition home or self-care (01) ==
LOC: ER 13:30
DX: K40.91 Unilateral inguinal hernia, without obstruction or gangrene, recurrent (principal); I10 Essential (primary) hypertension
CPT/HCPCS: 99283

== ENCOUNTER 2020-04-08 14:57 | Emergency (ER) | payer MEDICAID ==
[~2020-04-08] VITALS: Ht 182.9 cm; Wt 80.0 kg
[2020-04-08 17:44] VITALS: BP 132/74
== END 2020-04-08 17:48 | disposition home or self-care (01) ==
LOC: ER 15:04
DX: R10.9 Unspecified abdominal pain (principal); R07.89 Other chest pain; Z00.00 Encounter for general adult medical examination without abnormal findings
CPT/HCPCS: 93005; 99283

== ENCOUNTER 2020-05-17 17:06 | Emergency (ER) | payer MEDICAID ==
[~2020-05-17] VITALS: Ht 182.9 cm; Wt 79.0 kg
[2020-05-17] MEDS ORDERED: SODIUM CHLORIDE 0.9% 1,000 ML IV ONE (17:30)
[2020-05-17 19:22] LABS: CLARITY URINE CLEAR (CLEAR); COLOR URINE YELLOW (YELLOW); KETONES URINE NEGATIVE (NEGATIVE); LEUKOCYTE ESTERASE URINE TRACE (NEGATIVE); NITRITE URINE NEGATIVE (NEGATIVE); OCCULT BLOOD URINE NEGATIVE (NEGATIVE); PROTEIN URINE 1+ (NEGATIVE); SPECIFIC GRAVITY URINE 1.022 (1.005-1.030)
[2020-05-17 19:38] LABS: *AMPHETAMINES SCREEN URINE NEGATIVE (NEGATIVE); *BARBITURATES SCREEN URINE NEGATIVE (NEGATIVE); *BENZODIAZEPINES SCREEN URINE NEGATIVE (NEGATIVE); *COCAINE SCREEN URINE NEGATIVE (NEGATIVE); METHADONE URINE SCREEN NEGATIVE (NEGATIVE); OPIATES URINE SCREEN NEGATIVE (NEGATIVE)
[2020-05-17 19:39] LABS: CANNABINOID URINE SCREEN NEGATIVE (NEGATIVE); PHENCYCLIDINE URINE SCREEN PRESUMTIVE POSITIVE (NEGATIVE)
[2020-05-17 19:47] LABS: CHLORIDE 104 mEq/L (98-107)
[2020-05-17 19:48] LABS: BASOPHILS % 0.4 % (0.0-2.0); EOSINOPHILS % 4.9 % (0.0-5.0); HEMATOCRIT. 33.1 % (42.0-52.0); HEMOGLOBIN. 11.2 g/dL (14.0-18.0); LYMPHOCYTES % 14.8 % (20.0-50.0); MEAN CORPUSCULAR HEMOGLOBIN 35.2 pg (28.0-32.0); MEAN CORPUSCULAR VOLUME 104.1 fL (80.0-94.0); MEAN PLATELET VOLUME 8.4 fl (7.4-10.4); MONOCYTES % 6.7 % (2.0-8.0); NEUTROPHILS % 73.2 % (40.0-76.0); PLATELET 230 x1000/uL (130-400); RED BLOOD CELL COUNT 3.18 mill/uL (4.7-6.1); RED CELL DISTRIBUTION WIDTH 16.7 % (11.6-14.6)
[2020-05-17 19:51] LABS: ETHANOL BLOOD < 10 mg/dL
[2020-05-17 21:15] VITALS: BP 143/82
[2020-05-22] MEDS ORDERED: FURO40TA5 MT (10:28)
[2020-05-25] MEDS ORDERED: CLON0.1T PO (01:05)
== END 2020-05-17 21:47 | disposition home or self-care (01) ==
LOC: ER 17:12
DX: T40.991A Poisoning by other psychodysleptics [hallucinogens], accidental (unintentional), initial encounter (principal); X58.XXXA Exposure to other specified factors, initial encounter; I10 Essential (primary) hypertension
CPT/HCPCS: 36415; 70450; 80053; 80305; 80307; 80320; 80329; 81003; 85025; 96360; 99284; J7030; G0480

== ENCOUNTER 2020-05-19 12:42 | Emergency (ER) | payer MEDICAID ==
[~2020-05-19] VITALS: Ht 182.9 cm; Wt 68.0 kg
[2020-05-19] MEDS ORDERED: IBUPROFEN 600MG TABLET PO STA (13:09)
[2020-05-19 13:56] LABS: BASOPHILS % 0.4 % (0.0-2.0); EOSINOPHILS % 3.1 % (0.0-5.0); HEMATOCRIT. 34.3 % (42.0-52.0); HEMOGLOBIN. 11.5 g/dL (14.0-18.0); LYMPHOCYTES % 13.2 % (20.0-50.0); MEAN CORPUSCULAR HEMOGLOBIN 34.9 pg (28.0-32.0); MEAN PLATELET VOLUME 8.3 fl (7.4-10.4); MONOCYTES % 6.8 % (2.0-8.0); NEUTROPHILS % 76.5 % (40.0-76.0); PLATELET 238 x1000/uL (130-400); RED CELL DISTRIBUTION WIDTH 16.8 % (11.6-14.6)
[2020-05-19 14:02] LABS: CHLORIDE 103 mEq/L (98-107)
[2020-05-19 14:06] LABS: ETHANOL BLOOD < 10 mg/dL
[2020-05-19 18:18] VITALS: BP 127/71
[2020-05-22] MEDS ORDERED: FURO40TA5 MT (10:28)
== END 2020-05-19 19:02 | disposition home or self-care (01) ==
LOC: ER 12:42
DX: R07.89 Other chest pain (principal); J98.11 Atelectasis; I10 Essential (primary) hypertension; F10.20 Alcohol dependence, uncomplicated; Y90.0 Blood alcohol level of less than 20 mg/100 ml
CPT/HCPCS: 36415; 71045; 80053; 80320; 84484; 85025; 93005; 99285; G0480

== ENCOUNTER 2020-05-23 20:03 | Emergency (ER) | payer MEDICAID ==
[~2020-05-23] VITALS: Ht 182.9 cm; Wt 91.0 kg
[~2020-05-23 20:03] MED LIST changes: +FURO40TA5 MT
[2020-05-23] MEDS ORDERED: IBUPROFEN 600MG TABLET PO STA (21:31)
[2020-05-23 21:40] VITALS: BP 132/69
[2020-05-23 22:56] LABS: BASOPHILS % 1.3 % (0.0-2.0); EOSINOPHILS % 5.7 % (0.0-5.0); LYMPHOCYTES % 21.8 % (20.0-50.0); MEAN CORPUSCULAR HEMOGLOBIN 34.6 pg (28.0-32.0); MEAN CORPUSCULAR VOLUME 103.7 fL (80.0-94.0); MEAN PLATELET VOLUME 8.8 fl (7.4-10.4); MONOCYTES % 8.5 % (2.0-8.0); NEUTROPHILS % 62.7 % (40.0-76.0); PLATELET 270 x1000/uL (130-400); RED BLOOD CELL COUNT 3.47 mill/uL (4.7-6.1); RED CELL DISTRIBUTION WIDTH 16.9 % (11.6-14.6)
[2020-05-23 23:04] LABS: CHLORIDE 97 mEq/L (98-107)
[2020-05-23 23:07] LABS: ETHANOL BLOOD < 10 mg/dL
[2020-05-23 23:13] LABS: *AMPHETAMINES SCREEN URINE NEGATIVE (NEGATIVE); *BARBITURATES SCREEN URINE NEGATIVE (NEGATIVE); *BENZODIAZEPINES SCREEN URINE NEGATIVE (NEGATIVE); *COCAINE SCREEN URINE NEGATIVE (NEGATIVE); METHADONE URINE SCREEN NEGATIVE (NEGATIVE)
[2020-05-23 23:14] LABS: CANNABINOID URINE SCREEN NEGATIVE (NEGATIVE); OPIATES URINE SCREEN NEGATIVE (NEGATIVE); PHENCYCLIDINE URINE SCREEN PRESUMTIVE POSITIVE (NEGATIVE)
[2020-05-23 23:26] LABS: CLARITY URINE CLEAR (CLEAR); COLOR URINE YELLOW (YELLOW); KETONES URINE NEGATIVE (NEGATIVE); LEUKOCYTE ESTERASE URINE NEGATIVE (NEGATIVE); NITRITE URINE NEGATIVE (NEGATIVE); OCCULT BLOOD URINE NEGATIVE (NEGATIVE); PROTEIN URINE NEGATIVE (NEGATIVE); SPECIFIC GRAVITY URINE 1.018 (1.005-1.030)
[2020-05-24] MEDS ORDERED: ONDANSETRON 4MG ODT PO ONE (02:00)
[2020-05-25] MEDS ORDERED: CLON0.1T PO (01:05)
== END 2020-05-24 02:38 | disposition home or self-care (01) ==
LOC: ER 20:03
DX: T40.991A Poisoning by other psychodysleptics [hallucinogens], accidental (unintentional), initial encounter (principal); R07.89 Other chest pain; F16.129 Hallucinogen abuse with intoxication, unspecified; Y92.89 Other specified places as the place of occurrence of the external cause; I44.4 Left anterior fascicular block; I51.7 Cardiomegaly
CPT/HCPCS: 36415; 71045; 80053; 80305; 80320; 81003; 84484; 85025; 93005; 99285; Q0162; G0480

== ENCOUNTER 2020-05-24 07:24 | Emergency (ER) | payer MEDICAID ==
[~2020-05-24] VITALS: Ht 172.7 cm; Wt 65.0 kg
[2020-05-24 08:35] LABS: CHLORIDE 100 mEq/L (98-107)
[2020-05-24 08:40] LABS: BASOPHILS % 1.3 % (0.0-2.0); HEMATOCRIT. 33.2 % (42.0-52.0); LYMPHOCYTES % 21.4 % (20.0-50.0); MEAN CORPUSCULAR HEMOGLOBIN 34.6 pg (28.0-32.0); MEAN CORPUSCULAR VOLUME 104.5 fL (80.0-94.0); MEAN PLATELET VOLUME 8.9 fl (7.4-10.4); MONOCYTES % 9.2 % (2.0-8.0); NEUTROPHILS % 61.1 % (40.0-76.0); PLATELET 248 x1000/uL (130-400); RED BLOOD CELL COUNT 3.18 mill/uL (4.7-6.1); RED CELL DISTRIBUTION WIDTH 16.8 % (11.6-14.6)
[2020-05-24 09:47] VITALS: BP 155/79
[2020-05-25] MEDS ORDERED: CLON0.1T PO (01:05)
== END 2020-05-24 09:50 | disposition home or self-care (01) ==
LOC: ER 07:24
DX: R07.89 Other chest pain (principal); M25.552 Pain in left hip; I10 Essential (primary) hypertension; Z91.81 History of falling; F17.290 Nicotine dependence, other tobacco product, uncomplicated
CPT/HCPCS: 36415; 71045; 72170; 80053; 83880; 84484; 85025; 93005; 99285; Z7610

== ENCOUNTER 2020-05-26 18:37 | Emergency (ER) | payer OTHER ==
[~2020-05-26] VITALS: Ht 182.9 cm; Wt 80.0 kg
[~2020-05-26 18:37] MED LIST changes: +CLON0.1T PO
[2020-05-27] MEDS ORDERED: KETOROLAC 30MG/ML VIAL IM ONE (00:45)
[2020-05-27 03:01] VITALS: BP 142/68
== END 2020-05-27 03:05 | disposition home or self-care (01) ==
LOC: ER 18:37
DX: M54.5 Low back pain (principal); M25.552 Pain in left hip; I10 Essential (primary) hypertension; Z79.899 Other long term (current) drug therapy
CPT/HCPCS: 73502; 96372; 99283; J1885

== ENCOUNTER 2020-05-29 03:06 | Emergency (ER) | payer OTHER ==
[~2020-05-29] VITALS: Ht 182.9 cm; Wt 90.0 kg
[2020-05-29 05:33] VITALS: BP 156/65
== END 2020-05-29 05:34 | disposition home or self-care (01) ==
LOC: ER 03:06
DX: G89.29 Other chronic pain (principal); M54.5 Low back pain; I10 Essential (primary) hypertension
CPT/HCPCS: 99283

== ENCOUNTER 2020-06-03 16:23 | Emergency (ER) | payer OTHER ==
[~2020-06-03] VITALS: Ht 177.8 cm; Wt 86.0 kg
[2020-06-03] MEDS ORDERED: ONDANSETRON 4MG ODT PO ONE (17:45)
[2020-06-03] MEDS ORDERED: HYDROCODONE/ACETAMINOPHEN 5/325MG TABLET PO ONE (17:45)
[2020-06-03 18:40] VITALS: BP 115/66
== END 2020-06-03 18:54 | disposition home or self-care (01) ==
LOC: ER 16:23
DX: S79.912A Unspecified injury of left hip, initial encounter (principal); I10 Essential (primary) hypertension; Z79.899 Other long term (current) drug therapy; Z79.02 Long term (current) use of antithrombotics/antiplatelets; W01.0XXA Fall on same level from slipping, tripping and stumbling without subsequent striking against object, initial encounter; Y93.89 Activity, other specified; Y92.89 Other specified places as the place of occurrence of the external cause; Y99.8 Other external cause status
CPT/HCPCS: 73502; 99283; Q0162

== ENCOUNTER 2020-06-03 19:12 | Emergency (ER) | payer OTHER ==
[~2020-06-03] VITALS: Ht 182.9 cm; Wt 112.0 kg
[2020-06-03 20:18] VITALS: BP 144/84
[2020-06-03 23:41] LABS: BASOPHILS % 0.6 % (0.0-2.0); EOSINOPHILS % 5.7 % (0.0-5.0); HEMATOCRIT. 33.6 % (42.0-52.0); LYMPHOCYTES % 21.8 % (20.0-50.0); MEAN CORPUSCULAR HEMOGLOBIN 34.7 pg (28.0-32.0); MEAN CORPUSCULAR VOLUME 106.1 fL (80.0-94.0); MEAN PLATELET VOLUME 8.3 fl (7.4-10.4); MONOCYTES % 7.7 % (2.0-8.0); NEUTROPHILS % 64.2 % (40.0-76.0); PLATELET 267 x1000/uL (130-400); RED BLOOD CELL COUNT 3.17 mill/uL (4.7-6.1); RED CELL DISTRIBUTION WIDTH 16.3 % (11.6-14.6)
[2020-06-03 23:42] LABS: CHLORIDE 105 mEq/L (98-107)
[2020-06-08] MEDS ORDERED: HYDR-4001 MT (13:07)
[2020-06-08] MEDS ORDERED: LEVO500T2 MT (13:07)
== END 2020-06-04 00:25 | disposition home or self-care (01) ==
LOC: ER 19:12
DX: R07.89 Other chest pain (principal); M25.552 Pain in left hip; I10 Essential (primary) hypertension; Z79.899 Other long term (current) drug therapy; Z79.82 Long term (current) use of aspirin
CPT/HCPCS: 36415; 71045; 72170; 80053; 83880; 84484; 85025; 93005; 99285

== ENCOUNTER 2020-06-23 17:48 | Emergency (ER) | payer OTHER ==
[~2020-06-23] VITALS: Ht 180.3 cm; Wt 86.0 kg
[~2020-06-23 17:48] MED LIST changes: -CLON0.1T PO; -FURO40TA5 MT; +HYDR-4001 MT; +LEVO500T2 MT
[2020-06-24 04:25] VITALS: BP 145/83
== END 2020-06-24 05:25 | disposition left against medical advice (07) ==
LOC: ER 17:48
DX: Z53.21 Procedure and treatment not carried out due to patient leaving prior to being seen by health care provider (principal); R07.89 Other chest pain
CPT/HCPCS: 93005

== ENCOUNTER 2020-06-25 18:53 | Emergency (ER) | payer OTHER ==
[~2020-06-25] VITALS: Ht 182.9 cm; Wt 86.0 kg
[2020-06-25] MEDS ORDERED: DEXT 5%/0.45% NACL 500ML 500 ML IV ONE (21:30)
[2020-06-25 21:37] LABS: BASOPHILS % 0.9 % (0.0-2.0); EOSINOPHILS % 2.9 % (0.0-5.0); HEMATOCRIT. 37.2 % (42.0-52.0); HEMOGLOBIN. 11.9 g/dL (14.0-18.0); LYMPHOCYTES % 21.2 % (20.0-50.0); MEAN CORPUSCULAR HEMOGLOBIN 32.8 pg (28.0-32.0); MEAN CORPUSCULAR VOLUME 102.4 fL (80.0-94.0); PLATELET 179 x1000/uL (130-400); RED BLOOD CELL COUNT 3.63 mill/uL (4.7-6.1)
[2020-06-25 21:42] LABS: CHLORIDE 110 mEq/L (98-107)
[2020-06-25 22:16] LABS: CLARITY URINE CLEAR (CLEAR); COLOR URINE YELLOW (YELLOW); KETONES URINE NEGATIVE (NEGATIVE); LEUKOCYTE ESTERASE URINE TRACE (NEGATIVE); NITRITE URINE NEGATIVE (NEGATIVE); OCCULT BLOOD URINE NEGATIVE (NEGATIVE); PROTEIN URINE 1+ (NEGATIVE); SPECIFIC GRAVITY URINE 1.027 (1.005-1.030)
[2020-06-25 23:18] VITALS: BP 159/91
== END 2020-06-25 23:20 | disposition home or self-care (01) ==
LOC: ER 18:59
DX: N39.0 Urinary tract infection, site not specified (principal); I10 Essential (primary) hypertension
CPT/HCPCS: 36415; 71045; 80053; 81003; 85025; 99284

== ENCOUNTER 2020-06-28 16:56 | Emergency (ER) | payer OTHER ==
[~2020-06-28] VITALS: Ht 177.8 cm; Wt 88.0 kg
[2020-06-28] MEDS ORDERED: NITROGLYCERIN 0.4MG TABLET SL SL PRN (17:30)
[2020-06-28] MEDS ORDERED: ASPIRIN 81MG TABLET PO ONE (17:30)
[2020-06-28 18:31] LABS: BASOPHILS % 0.8 % (0.0-2.0); EOSINOPHILS % 1.6 % (0.0-5.0); HEMATOCRIT. 31.2 % (42.0-52.0); HEMOGLOBIN. 10.5 g/dL (14.0-18.0); LYMPHOCYTES % 18.6 % (20.0-50.0); MEAN CORPUSCULAR HEMOGLOBIN 33.9 pg (28.0-32.0); MEAN CORPUSCULAR VOLUME 100.4 fL (80.0-94.0); MONOCYTES % 8.4 % (2.0-8.0); NEUTROPHILS % 70.6 % (40.0-76.0); PLATELET 160 x1000/uL (130-400); RED BLOOD CELL COUNT 3.11 mill/uL (4.7-6.1); RED CELL DISTRIBUTION WIDTH 14.6 % (11.6-14.6)
[2020-06-28 18:46] LABS: CHLORIDE 110 mEq/L (98-107)
[2020-06-28 18:54] LABS: ETHANOL BLOOD < 10 mg/dL
[2020-06-29 07:02] VITALS: BP 131/74
== END 2020-06-29 07:02 | disposition home or self-care (01) ==
LOC: ER 16:56
DX: R07.89 Other chest pain (principal); J44.9 Chronic obstructive pulmonary disease, unspecified; K40.90 Unilateral inguinal hernia, without obstruction or gangrene, not specified as recurrent; I10 Essential (primary) hypertension; Z79.899 Other long term (current) drug therapy; F16.20 Hallucinogen dependence, uncomplicated
CPT/HCPCS: 36415; 71045; 71275; 80053; 80320; 83880; 84484; 85025; 85379; 93005; 99285; G0480

== ENCOUNTER 2020-07-01 19:14 | Emergency (ER) | payer OTHER ==
[~2020-07-01] VITALS: Ht 182.9 cm; Wt 79.0 kg
[2020-07-01] MEDS ORDERED: HYDROCODONE/ACETAMINOPHEN 5/325MG TABLET PO STA (19:57)
[2020-07-01 22:12] LABS: BASOPHILS % 0.8 % (0.0-2.0); EOSINOPHILS % 1.8 % (0.0-5.0); HEMATOCRIT. 33.2 % (42.0-52.0); MEAN CORPUSCULAR HEMOGLOBIN 33.5 pg (28.0-32.0); MEAN PLATELET VOLUME 8.8 fl (7.4-10.4); MONOCYTES % 8.1 % (2.0-8.0); NEUTROPHILS % 64.3 % (40.0-76.0); PLATELET 163 x1000/uL (130-400); RED BLOOD CELL COUNT 3.29 mill/uL (4.7-6.1); RED CELL DISTRIBUTION WIDTH 15.2 % (11.6-14.6)
[2020-07-01 22:19] LABS: CHLORIDE 106 mEq/L (98-107)
[2020-07-01] MEDS ORDERED: AMLODIPINE 10MG TABLET PO ONE (22:45)
[2020-07-01] MEDS ORDERED: NIFEDIPINE XL 60MG TAB PO ONE (22:45)
[2020-07-02 01:34] VITALS: BP 175/98
== END 2020-07-02 01:50 | disposition home or self-care (01) ==
LOC: ER 19:14
DX: R07.89 Other chest pain (principal); M54.5 Low back pain; D64.9 Anemia, unspecified; I10 Essential (primary) hypertension
CPT/HCPCS: 36415; 71045; 80053; 84484; 85025; 99284

== ENCOUNTER 2020-07-05 20:12 | Emergency (ER) | payer OTHER ==
[2020-07-05 23:40] LABS: BASOPHILS % 1.3 % (0.0-2.0); EOSINOPHILS % 1.3 % (0.0-5.0); HEMATOCRIT. 38.8 % (42.0-52.0); HEMOGLOBIN. 12.8 g/dL (14.0-18.0); LYMPHOCYTES % 25.2 % (20.0-50.0); MEAN CORPUSCULAR HEMOGLOBIN 32.9 pg (28.0-32.0); MEAN CORPUSCULAR VOLUME 99.7 fL (80.0-94.0); MEAN PLATELET VOLUME 8.6 fl (7.4-10.4); MONOCYTES % 10.3 % (2.0-8.0); NEUTROPHILS % 61.9 % (40.0-76.0); PLATELET 210 x1000/uL (130-400); RED CELL DISTRIBUTION WIDTH 14.7 % (11.6-14.6)
[2020-07-05 23:46] LABS: CHLORIDE 99 mEq/L (98-107)
[2020-07-05 23:50] LABS: PROTHROMBIN TIME 10.7 sec (9.6-11.0)
[2020-07-06] MEDS ORDERED: FUROSEMIDE 20MG/2ML VIAL IVP ONE (01:30)
[2020-07-06 10:15] VITALS: BP 130/80
== END 2020-07-06 10:39 | disposition home or self-care (01) ==
LOC: ER 20:12
DX: R07.89 Other chest pain (principal); Z53.21 Procedure and treatment not carried out due to patient leaving prior to being seen by health care provider
CPT/HCPCS: 36415; 71045; 80053; 83880; 84484; 85025; 93005; 99284

== ENCOUNTER 2020-07-06 20:44 | Emergency (ER) | payer OTHER ==
[~2020-07-06] VITALS: Ht 182.9 cm; Wt 81.0 kg
[2020-07-06] MEDS ORDERED: ACETAMINOPHEN 325MG TABLET PO ONE (21:15)
[2020-07-06 21:21] VITALS: BP 180/97
== END 2020-07-06 21:57 | disposition home or self-care (01) ==
LOC: ER 20:44
DX: G89.29 Other chronic pain (principal); M54.5 Low back pain; K40.90 Unilateral inguinal hernia, without obstruction or gangrene, not specified as recurrent; I27.20 Pulmonary hypertension, unspecified; J44.9 Chronic obstructive pulmonary disease, unspecified; F16.10 Hallucinogen abuse, uncomplicated; F19.10 Other psychoactive substance abuse, uncomplicated; Z86.711 Personal history of pulmonary embolism; Z76.5 Malingerer [conscious simulation]; Z86.718 Personal history of other venous thrombosis and embolism; Z79.899 Other long term (current) drug therapy
CPT/HCPCS: 99283

== ENCOUNTER 2020-07-09 18:35 | Emergency (ER) | payer OTHER ==
[~2020-07-09] VITALS: Ht 182.9 cm; Wt 82.0 kg
[2020-07-09 18:45] VITALS: BP 152/61
[2020-07-09] MEDS ORDERED: IBUPROFEN 600MG TABLET PO STA (19:12)
[2020-07-09 20:02] LABS: BASOPHILS % 0.4 % (0.0-2.0); EOSINOPHILS % 1.6 % (0.0-5.0); HEMATOCRIT. 33.5 % (42.0-52.0); HEMOGLOBIN. 10.7 g/dL (14.0-18.0); LYMPHOCYTES % 23.9 % (20.0-50.0); MEAN CORPUSCULAR HEMOGLOBIN 32.4 pg (28.0-32.0); MEAN CORPUSCULAR VOLUME 101.3 fL (80.0-94.0); MEAN PLATELET VOLUME 8.4 fl (7.4-10.4); MONOCYTES % 12.5 % (2.0-8.0); NEUTROPHILS % 61.6 % (40.0-76.0); PLATELET 168 x1000/uL (130-400); RED CELL DISTRIBUTION WIDTH 14.8 % (11.6-14.6)
[2020-07-09 20:08] LABS: CHLORIDE 110 mEq/L (98-107)
== END 2020-07-10 01:23 | disposition left against medical advice (07) ==
LOC: ER 18:52
DX: R07.89 Other chest pain (principal); I10 Essential (primary) hypertension; F17.200 Nicotine dependence, unspecified, uncomplicated; F16.10 Hallucinogen abuse, uncomplicated; Z79.899 Other long term (current) drug therapy
CPT/HCPCS: 36415; 80053; 84484; 85025; 93005; 99284

== ENCOUNTER 2020-07-14 18:25 | Emergency (ER) | payer OTHER ==
[~2020-07-14] VITALS: Ht 182.9 cm; Wt 111.0 kg
[2020-07-14] MEDS ORDERED: KETOROLAC 60MG/2ML VIAL IM ONE (19:00)
[2020-07-14 20:31] VITALS: BP 141/77
== END 2020-07-14 20:34 | disposition home or self-care (01) ==
LOC: ER 18:25
DX: M54.5 Low back pain (principal); G89.29 Other chronic pain; I10 Essential (primary) hypertension; Z79.01 Long term (current) use of anticoagulants; Z79.899 Other long term (current) drug therapy; Z79.82 Long term (current) use of aspirin
CPT/HCPCS: 96372; 99283

== ENCOUNTER 2020-07-17 16:30 | Emergency (ER) | payer OTHER ==
[~2020-07-17] VITALS: Ht 182.9 cm; Wt 90.0 kg
[2020-07-17] MEDS ORDERED: ACETAMINOPHEN 500MG TABLET PO ONE (17:00)
[2020-07-17] MEDS ORDERED: GABAPENTIN 300MG CAPSULE PO ONE (17:00)
[2020-07-17 17:06] VITALS: BP 163/65
== END 2020-07-17 17:31 | disposition home or self-care (01) ==
LOC: ER 16:30
DX: G89.29 Other chronic pain (principal); M54.5 Low back pain; I10 Essential (primary) hypertension; F16.10 Hallucinogen abuse, uncomplicated
CPT/HCPCS: 99283

== ENCOUNTER 2020-07-21 17:57 | Emergency (ER) | payer OTHER ==
[~2020-07-21] VITALS: Ht 182.9 cm; Wt 77.0 kg
[~2020-07-21 17:57] MED LIST changes: -ASPI-1158 PO; +ASPI-1406 PO
[2020-07-21 18:14] VITALS: BP 139/79
[2020-07-21] MEDS ORDERED: ACETAMINOPHEN 325MG TABLET PO ONE (19:45)
[2020-07-21] MEDS ORDERED: LIDOCAINE 5% PATCH TOP SCH (19:45)
[2020-07-21 20:25] LABS: BASOPHILS % 1.1 % (0.0-2.0); EOSINOPHILS % 2.3 % (0.0-5.0); HEMATOCRIT. 33.7 % (42.0-52.0); LYMPHOCYTES % 25.5 % (20.0-50.0); MEAN CORPUSCULAR HEMOGLOBIN 32.9 pg (28.0-32.0); MEAN CORPUSCULAR VOLUME 100.5 fL (80.0-94.0); MEAN PLATELET VOLUME 8.8 fl (7.4-10.4); MONOCYTES % 7.6 % (2.0-8.0); NEUTROPHILS % 63.5 % (40.0-76.0); PLATELET 145 x1000/uL (130-400); RED BLOOD CELL COUNT 3.35 mill/uL (4.7-6.1); RED CELL DISTRIBUTION WIDTH 14.5 % (11.6-14.6)
[2020-07-21 20:30] LABS: CHLORIDE 110 mEq/L (98-107)
[2020-07-21 20:43] LABS: *AMPHETAMINES SCREEN URINE NEGATIVE (NEGATIVE); *BARBITURATES SCREEN URINE NEGATIVE (NEGATIVE); *BENZODIAZEPINES SCREEN URINE NEGATIVE (NEGATIVE); *COCAINE SCREEN URINE NEGATIVE (NEGATIVE); METHADONE URINE SCREEN NEGATIVE (NEGATIVE)
[2020-07-21 20:44] LABS: CANNABINOID URINE SCREEN NEGATIVE (NEGATIVE); OPIATES URINE SCREEN NEGATIVE (NEGATIVE); PHENCYCLIDINE URINE SCREEN PRESUMTIVE POSITIVE (NEGATIVE)
== END 2020-07-21 21:30 | disposition left against medical advice (07) ==
LOC: ER 17:57
DX: U07.1 COVID-19 (principal); S39.012A Strain of muscle, fascia and tendon of lower back, initial encounter; X50.0XXA Overexertion from strenuous movement or load, initial encounter; Y93.89 Activity, other specified; Y92.89 Other specified places as the place of occurrence of the external cause; I11.0 Hypertensive heart disease with heart failure; I50.9 Heart failure, unspecified; I25.10 Atherosclerotic heart disease of native coronary artery without angina pectoris; I48.91 Unspecified atrial fibrillation; Z79.01 Long term (current) use of anticoagulants; Z79.899 Other long term (current) drug therapy; F16.10 Hallucinogen abuse, uncomplicated
CPT/HCPCS: 36415; 71045; 80053; 80305; 83735; 83880; 84484; 85025; 87635; 93005; 99285

== ENCOUNTER 2021-01-11 08:12 | Emergency (ER) | payer MEDICARE, OTHER ==
[2021-01-11 08:26] VITALS: BP 164/88
[2021-01-11] MEDS ORDERED: ACET-2708 MT (10:43)
[2021-01-13] MEDS ORDERED: FURO-151 MT (14:49)
[2021-01-13] MEDS ORDERED: RIVA20TA PO (14:49)
[2021-01-13] MEDS ORDERED: NIFE-32 PO (14:49)
== END 2021-01-11 11:16 | disposition home or self-care (01) ==
LOC: ER 09:22
DX: R07.89 Other chest pain (principal); M25.551 Pain in right hip; F17.290 Nicotine dependence, other tobacco product, uncomplicated; I10 Essential (primary) hypertension; F10.229 Alcohol dependence with intoxication, unspecified; Y90.0 Blood alcohol level of less than 20 mg/100 ml; Z79.899 Other long term (current) drug therapy
CPT/HCPCS: 71045; 73502; 82962; 99284

== ENCOUNTER 2021-02-05 16:22 | Emergency (ER) | payer MEDICARE, OTHER ==
[~2021-02-05] VITALS: Ht 182.9 cm; Wt 105.0 kg
[~2021-02-05 16:22] MED LIST changes: +ACET-2708 MT; +FURO-151 MT; +IBUP-2028 MT; -LEVO500T2 MT
[2021-02-05 16:25] VITALS: BP 116/56
[2021-02-27] MEDS ORDERED: DOCU-150 MT (16:55)
== END 2021-02-05 18:55 | disposition left against medical advice (07) ==
LOC: ER 16:22
DX: Z53.21 Procedure and treatment not carried out due to patient leaving prior to being seen by health care provider (principal)

== ENCOUNTER 2021-02-06 22:24 | Inpatient (IN) | payer MEDICARE, OTHER ==
[~2021-02-06] VITALS: Ht 182.9 cm; Wt 113.4 kg
[2021-02-06] MEDS ORDERED: ACETAMINOPHEN 500MG TABLET PO ONE (23:45)
[2021-02-07 00:43] LABS: BASOPHILS % 0.7 % (0.0-2.0); EOSINOPHILS % 3.2 % (0.0-5.0); HEMOGLOBIN. 11.8 g/dL (14.0-18.0); LYMPHOCYTES % 24.9 % (20.0-50.0); MEAN CORPUSCULAR VOLUME 103.1 fL (80.0-94.0); MEAN PLATELET VOLUME 8.4 fl (7.4-10.4); MONOCYTES % 13.3 % (2.0-8.0); NEUTROPHILS % 57.9 % (40.0-76.0); PLATELET 173 x1000/uL (130-400); RED BLOOD CELL COUNT 3.59 mill/uL (4.7-6.1); RED CELL DISTRIBUTION WIDTH 16.5 % (11.6-14.6)
[2021-02-07 00:49] LABS: CHLORIDE 109 mEq/L (98-107)
[2021-02-07 01:17] LABS: CLARITY URINE CLEAR (CLEAR); COLOR URINE YELLOW (YELLOW); KETONES URINE NEGATIVE (NEGATIVE); LEUKOCYTE ESTERASE URINE NEGATIVE (NEGATIVE); NITRITE URINE NEGATIVE (NEGATIVE); OCCULT BLOOD URINE NEGATIVE (NEGATIVE); PROTEIN URINE TRACE (NEGATIVE); SPECIFIC GRAVITY URINE 1.021 (1.005-1.030)
[2021-02-07 01:56] LABS: *AMPHETAMINES SCREEN URINE NEGATIVE (NEGATIVE); *BARBITURATES SCREEN URINE NEGATIVE (NEGATIVE); *BENZODIAZEPINES SCREEN URINE NEGATIVE (NEGATIVE)
[2021-02-07 01:57] LABS: *COCAINE SCREEN URINE NEGATIVE (NEGATIVE); CANNABINOID URINE SCREEN NEGATIVE (NEGATIVE); METHADONE URINE SCREEN NEGATIVE (NEGATIVE); OPIATES URINE SCREEN NEGATIVE (NEGATIVE); PHENCYCLIDINE URINE SCREEN PRESUMTIVE POSITIVE (NEGATIVE)
[2021-02-07] MEDS ORDERED: DEXTROSE 50% WATER 50ML SYRINGE IV NR (02:15)
[2021-02-07] MEDS ORDERED: AZITHROMYCIN 500 MG in DEXT 5% WATER 250 ML IV ONE (03:00)
[2021-02-07] MEDS ORDERED: DEXTROSE 50% WATER 50ML SYRINGE IV ONE (03:00)
[2021-02-07] MEDS ORDERED: CEFTRIAXONE 1 G PREMIX 50 ML IV ONE (03:00)
[2021-02-07] MEDS ORDERED: DEXT 10% WATER 1,000 ML IV SCH ×2 (03:00→03:09)
[2021-02-07] MEDS ORDERED: DEXT 5%/0.9% NACL 1,000 ML IV ONE (03:30)
[2021-02-07] MEDS ORDERED: IPRATROPIUM/ALBUTEROL 0.5-3(2.5)MG/3ML NEB HHN PRN (09:00)
[2021-02-07] MEDS ORDERED: ACETAMINOPHEN 325MG TABLET PO PRN (09:00)
[2021-02-07] MEDS ORDERED: CLONIDINE 0.1MG TABLET PO PRN (09:00)
[2021-02-07] MEDS ORDERED: ONDANSETRON HCL 4MG/2ML INJ IV PRN (09:00)
[2021-02-07] MEDS ORDERED: DIPHENHYDRAMINE 50MG/ML VIAL IV PRN (09:00)
[2021-02-07] MEDS: RIVAROXABAN 20 MG TABLET PO SCH (21:49)
[2021-02-07] MEDS: NIFEDIPINE XL 60MG TAB PO SCH (21:50)
[2021-02-08 00:12] VITALS: BP 178/103
[2021-02-08] MEDS ORDERED: DEXTROSE 50% WATER 50ML SYRINGE IV PRN (01:15)
[2021-02-08] MEDS: CEFTRIAXONE 1,000 MG in DEXTROSE 5% WATER 50 ML IV SCH (03:24)
[2021-02-08 04:00] VITALS: BP 117/65
[2021-02-08] MEDS: AZITHROMYCIN 500 MG in DEXT 5% WATER 250 ML IV SCH (04:04)
[2021-02-08] MEDS: BLOOD SUGAR DIAGNOSTIC STRIP TEST SCH ×4 (05:49→21:08)
[2021-02-08 08:00] VITALS: BP 136/68
[2021-02-08 08:12] LABS: EOSINOPHILS % 7.2 % (0.0-5.0); HEMATOCRIT. 36.4 % (42.0-52.0); HEMOGLOBIN. 11.8 g/dL (14.0-18.0); LYMPHOCYTES % 18.9 % (20.0-50.0); MEAN CORPUSCULAR HEMOGLOBIN 32.8 pg (28.0-32.0); MEAN CORPUSCULAR VOLUME 101.3 fL (80.0-94.0); MEAN PLATELET VOLUME 9.6 fl (7.4-10.4); MONOCYTES % 11.6 % (2.0-8.0); NEUTROPHILS % 61.3 % (40.0-76.0); PLATELET 160 x1000/uL (130-400); RED BLOOD CELL COUNT 3.59 mill/uL (4.7-6.1); RED CELL DISTRIBUTION WIDTH 16.2 % (11.6-14.6)
[2021-02-08 08:15] LABS: CHLORIDE 111 mEq/L (98-107)
[2021-02-08 08:23] LABS: LDL CHOLESTEROL 44 mg/dL (5-100)
[2021-02-08 08:25] LABS: HDL CHOLESTEROL 65 mg/dL (40-59)
[2021-02-08] MEDS: ASPIRIN 81MG EC TABLET PO SCH (08:36)
[2021-02-08] MEDS: FUROSEMIDE 40MG TABLET PO SCH (08:36)
[2021-02-08] MEDS: NIFEDIPINE XL 60MG TAB PO SCH ×2 (08:36→21:00)
[2021-02-08 12:00] VITALS: BP 158/76
[2021-02-08 16:00] VITALS: BP 146/86
[2021-02-08] MEDS: RIVAROXABAN 20 MG TABLET PO SCH (18:14)
[2021-02-08 20:00] VITALS: BP 123/63
[2021-02-09 00:04] VITALS: BP 106/64
[2021-02-09] MEDS: CEFTRIAXONE 1,000 MG in DEXTROSE 5% WATER 50 ML IV SCH (03:00)
[2021-02-09 04:00] VITALS: BP 120/64
[2021-02-09] MEDS: AZITHROMYCIN 500 MG in DEXT 5% WATER 250 ML IV SCH ×2 (04:06→04:13)
[2021-02-09] MEDS: BLOOD SUGAR DIAGNOSTIC STRIP TEST SCH ×2 (05:42→12:51)
[2021-02-09 08:00] VITALS: BP 138/70
[2021-02-09] MEDS: FUROSEMIDE 40MG TABLET PO SCH (09:15)
[2021-02-09] MEDS: ASPIRIN 81MG EC TABLET PO SCH (09:15)
[2021-02-09] MEDS: NIFEDIPINE XL 60MG TAB PO SCH (09:17)
[2021-02-09 10:50] LABS: BASOPHILS % 0.5 % (0.0-2.0); EOSINOPHILS % 7.8 % (0.0-5.0); HEMATOCRIT. 37.3 % (42.0-52.0); HEMOGLOBIN. 12.5 g/dL (14.0-18.0); LYMPHOCYTES % 22.5 % (20.0-50.0); MEAN CORPUSCULAR HEMOGLOBIN 33.1 pg (28.0-32.0); MEAN CORPUSCULAR VOLUME 98.7 fL (80.0-94.0); MEAN PLATELET VOLUME 8.3 fl (7.4-10.4); MONOCYTES % 8.8 % (2.0-8.0); NEUTROPHILS % 60.4 % (40.0-76.0); PLATELET 168 x1000/uL (130-400); RED BLOOD CELL COUNT 3.78 mill/uL (4.7-6.1); RED CELL DISTRIBUTION WIDTH 16.2 % (11.6-14.6)
[2021-02-09 11:24] LABS: CHLORIDE 107 mEq/L (98-107)
[2021-02-09 12:00] VITALS: BP 132/71
[2021-02-09] MEDS ORDERED: AZITHROMYCIN 500 MG TABLET PO SCH (12:30)
[2021-02-09 16:00] VITALS: BP 130/72
[2021-02-09 16:28] VITALS: BP 130/72
== END 2021-02-09 17:07 | disposition home health service (06) | DRG 420 ==
LOC: ER 22:24 → MICUSO 02-07 04:37 → EDBEDREQ 02-07 04:46 → EDBEDREQTM 02-07 04:46 → 8WST 02-07 23:04
PROVIDERS: ADMIT Internal Medicine; ATTEND Internal Medicine
DX: E11.649 Type 2 diabetes mellitus with hypoglycemia without coma (principal); N17.0 Acute kidney failure with tubular necrosis; G93.41 Metabolic encephalopathy; I11.0 Hypertensive heart disease with heart failure; I50.9 Heart failure, unspecified; J44.9 Chronic obstructive pulmonary disease, unspecified; I25.10 Atherosclerotic heart disease of native coronary artery without angina pectoris; Z20.822 Contact with and (suspected) exposure to COVID-19; F10.10 Alcohol abuse, uncomplicated; Y90.9 Presence of alcohol in blood, level not specified; Z86.711 Personal history of pulmonary embolism; Z86.718 Personal history of other venous thrombosis and embolism; Z79.1 Long term (current) use of non-steroidal anti-inflammatories (NSAID); Z79.82 Long term (current) use of aspirin; Z79.899 Other long term (current) drug therapy; Z82.49 Family history of ischemic heart disease and other diseases of the circulatory system
CPT/HCPCS: 36415; 71045; 80048; 80053; 80061; 80305; 81003; 82962; 83605; 83880; 84443; 84484; 85025; 87426; 93005; 97161; 99291; J0456; J0696; J7040; J7042; J7060

== ENCOUNTER 2021-02-10 14:26 | Emergency (ER) | payer MEDICARE, OTHER ==
[~2021-02-10] VITALS: Ht 180.3 cm; Wt 85.0 kg
[~2021-02-10 14:26] MED LIST changes: -IBUP-2028 MT
[2021-02-10 15:54] LABS: BASOPHILS % 0.5 % (0.0-2.0); CHLORIDE 101 mEq/L (98-107); EOSINOPHILS % 5.3 % (0.0-5.0); HEMATOCRIT. 36.6 % (42.0-52.0); HEMOGLOBIN. 12.3 g/dL (14.0-18.0); LYMPHOCYTES % 22.1 % (20.0-50.0); MEAN CORPUSCULAR HEMOGLOBIN 33.4 pg (28.0-32.0); MEAN CORPUSCULAR VOLUME 99.4 fL (80.0-94.0); MEAN PLATELET VOLUME 8.9 fl (7.4-10.4); MONOCYTES % 10.4 % (2.0-8.0); NEUTROPHILS % 61.7 % (40.0-76.0); PLATELET 175 x1000/uL (130-400); RED BLOOD CELL COUNT 3.69 mill/uL (4.7-6.1); RED CELL DISTRIBUTION WIDTH 16.3 % (11.6-14.6)
[2021-02-10 15:58] LABS: ETHANOL BLOOD < 10 mg/dL
[2021-02-10 22:32] VITALS: BP 130/70
[2021-02-27] MEDS ORDERED: DOCU-150 MT (16:55)
== END 2021-02-10 23:55 | disposition short-term general hospital (02) ==
LOC: ER 14:26
DX: R07.89 Other chest pain (principal); F10.129 Alcohol abuse with intoxication, unspecified; F17.200 Nicotine dependence, unspecified, uncomplicated; I11.0 Hypertensive heart disease with heart failure; I50.9 Heart failure, unspecified; Z79.899 Other long term (current) drug therapy; Z79.82 Long term (current) use of aspirin; Y90.0 Blood alcohol level of less than 20 mg/100 ml
CPT/HCPCS: 36415; 71045; 80053; 80320; 83690; 83880; 84484; 85025; 93005; 99285; Z7610; G0480

== ENCOUNTER 2021-02-24 20:46 | Emergency (ER) | payer MEDICARE, OTHER ==
[~2021-02-24] VITALS: Ht 177.8 cm; Wt 80.0 kg
[2021-02-25] MEDS ORDERED: ACETAMINOPHEN 325MG TABLET PO ONE (02:30)
[2021-02-25] MEDS ORDERED: ONDANSETRON 4MG ODT PO ONE (02:30)
[2021-02-25 03:23] VITALS: BP 137/84
[2021-02-27] MEDS ORDERED: DOCU-150 MT (16:55)
== END 2021-02-25 03:25 | disposition home or self-care (01) ==
LOC: ER 20:46
DX: K40.90 Unilateral inguinal hernia, without obstruction or gangrene, not specified as recurrent (principal); I45.2 Bifascicular block
CPT/HCPCS: 93005; 99283

== ENCOUNTER 2021-03-01 20:59 | Inpatient (IN) | payer MEDICARE, OTHER ==
[~2021-03-01] VITALS: Ht 180.3 cm; Wt 100.0 kg
[~2021-03-01 20:59] MED LIST changes: +DOCU-150 MT; +IBUP-2028 MT
[2021-03-01] MEDS ORDERED: CLONIDINE 0.1MG TABLET PO ONE (21:15)
[2021-03-01] MEDS ORDERED: DEXTROSE 50% WATER 50ML SYRINGE IV ONE ×2 (21:30→22:15)
[2021-03-01 22:04] LABS: BASOPHILS % 0.3 % (0.0-2.0); EOSINOPHILS % 2.4 % (0.0-5.0); HEMATOCRIT. 37.9 % (42.0-52.0); HEMOGLOBIN. 12.7 g/dL (14.0-18.0); LYMPHOCYTES % 20.6 % (20.0-50.0); MEAN CORPUSCULAR HEMOGLOBIN 33.1 pg (28.0-32.0); MEAN PLATELET VOLUME 8.1 fl (7.4-10.4); MONOCYTES % 6.4 % (2.0-8.0); NEUTROPHILS % 70.3 % (40.0-76.0); PLATELET 240 x1000/uL (130-400); RED BLOOD CELL COUNT 3.83 mill/uL (4.7-6.1); RED CELL DISTRIBUTION WIDTH 15.5 % (11.6-14.6)
[2021-03-01 22:05] LABS: CHLORIDE 100 mEq/L (98-107)
[2021-03-01 22:06] LABS: PROTHROMBIN TIME 10.9 sec (9.6-11.0)
[2021-03-01 22:09] LABS: ETHANOL BLOOD < 10 mg/dL
[2021-03-01 22:11] LABS: CLARITY URINE CLEAR (CLEAR); COLOR URINE YELLOW (YELLOW); KETONES URINE NEGATIVE (NEGATIVE); LEUKOCYTE ESTERASE URINE NEGATIVE (NEGATIVE); NITRITE URINE NEGATIVE (NEGATIVE); OCCULT BLOOD URINE NEGATIVE (NEGATIVE); PH URINE 8.5 (4.5-8.0); PROTEIN URINE NEGATIVE (NEGATIVE); SPECIFIC GRAVITY URINE 1.005 (1.005-1.030); UROBILINOGEN URINE 0.2 E.U./dL (0.2-1.0)
[2021-03-01 22:20] LABS: *AMPHETAMINES SCREEN URINE NEGATIVE (NEGATIVE); *BARBITURATES SCREEN URINE NEGATIVE (NEGATIVE); *BENZODIAZEPINES SCREEN URINE NEGATIVE (NEGATIVE)
[2021-03-01 22:21] LABS: *COCAINE SCREEN URINE NEGATIVE (NEGATIVE); CANNABINOID URINE SCREEN NEGATIVE (NEGATIVE); METHADONE URINE SCREEN NEGATIVE (NEGATIVE); OPIATES URINE SCREEN NEGATIVE (NEGATIVE); PHENCYCLIDINE URINE SCREEN PRESUMTIVE POSITIVE (NEGATIVE)
[2021-03-01] MEDS: DEXTROSE 50% WATER 50ML SYRINGE IV NR (22:47)
[2021-03-01] MEDS: DEXT 5%/0.45% NACL KCL 20MEQ/L 1,000 ML IV ONE (22:58)
[2021-03-02] MEDS: DEXTROSE 50% WATER 50ML SYRINGE IV NR (01:02)
[2021-03-02] MEDS: DEXT 5%/0.45% NACL KCL 20MEQ/L 1,000 ML IV ONE (01:06)
[2021-03-02] MEDS ORDERED: DEXT 5%/0.45% NACL 500ML 500 ML IV ONE (08:00)
[2021-03-02 08:37] LABS: CHLORIDE 106 mEq/L (98-107)
[2021-03-02] MEDS ORDERED: DIPHENHYDRAMINE 50MG/ML VIAL IV PRN (08:45)
[2021-03-02] MEDS ORDERED: IPRATROPIUM/ALBUTEROL 0.5-3(2.5)MG/3ML NEB HHN PRN (08:45)
[2021-03-02] MEDS ORDERED: CLONIDINE 0.1MG TABLET PO PRN (08:45)
[2021-03-02] MEDS ORDERED: ACETAMINOPHEN 325MG TABLET PO PRN (08:45)
[2021-03-02] MEDS ORDERED: ONDANSETRON HCL 4MG/2ML INJ IV PRN (08:45)
[2021-03-02] MEDS ORDERED: DEXTROSE 50% WATER 50ML SYRINGE IV ONE (21:45)
[2021-03-02] MEDS ORDERED: DEXTROSE 50% WATER 50ML SYRINGE IV NR (22:00)
[2021-03-02 22:16] VITALS: BP 163/70
[2021-03-04] MEDS ORDERED: ACET-2708 PO (03:08)
== END 2021-03-03 16:48 | disposition short-term general hospital (02) | DRG 52 ==
LOC: ER 20:59 → MICUSO 22:40 → EDBEDREQ 22:46 → EDBEDREQSVC 22:46 → EDBEDREQTM 22:46 → 5EST 03-02 20:49
PROVIDERS: ADMIT Internal Medicine; ATTEND Internal Medicine
DX: G93.41 Metabolic encephalopathy (principal); I82.403 Acute embolism and thrombosis of unspecified deep veins of lower extremity, bilateral; N17.9 Acute kidney failure, unspecified; I50.9 Heart failure, unspecified; I11.0 Hypertensive heart disease with heart failure; E16.2 Hypoglycemia, unspecified; F10.10 Alcohol abuse, uncomplicated; Y90.9 Presence of alcohol in blood, level not specified; F16.90 Hallucinogen use, unspecified, uncomplicated; J44.9 Chronic obstructive pulmonary disease, unspecified; Z79.82 Long term (current) use of aspirin; Z79.1 Long term (current) use of non-steroidal anti-inflammatories (NSAID); Z79.891 Long term (current) use of opiate analgesic; Z79.899 Other long term (current) drug therapy; Z82.49 Family history of ischemic heart disease and other diseases of the circulatory system; Z95.828 Presence of other vascular implants and grafts
CPT/HCPCS: 36415; 71045; 73610; 80053; 80305; 80320; 81003; 82533; 82962; 85025; 93005; 93970; 99283; 99291; G0480

== ENCOUNTER 2021-03-03 21:17 | Emergency (ER) | payer MEDICARE, OTHER ==
[~2021-03-03] VITALS: Ht 182.9 cm; Wt 79.0 kg
[~2021-03-03 21:17] MED LIST changes: -IBUP-2028 MT
[2021-03-04] MEDS ORDERED: ACETAMINOPHEN 325MG TABLET PO STA (02:20)
[2021-03-04] MEDS ORDERED: ACET-2708 PO (03:08)
[2021-03-04 03:18] VITALS: BP 128/66
== END 2021-03-04 03:19 | disposition home or self-care (01) ==
LOC: ER 21:17
DX: M25.571 Pain in right ankle and joints of right foot (principal); R07.89 Other chest pain; I11.0 Hypertensive heart disease with heart failure; I50.9 Heart failure, unspecified
CPT/HCPCS: 73610; 99283

== ENCOUNTER 2021-03-04 23:39 | Emergency (ER) | payer MEDICARE, OTHER ==
[~2021-03-04] VITALS: Ht 182.9 cm; Wt 78.0 kg
[~2021-03-04 23:39] MED LIST changes: +ACET-2708 PO
[2021-03-05] MEDS ORDERED: KETOROLAC 15MG/ML VIAL IV ONE (00:45)
[2021-03-05] MEDS ORDERED: ASPIRIN 325MG EC TABLET PO ONE (00:45)
[2021-03-05 00:49] VITALS: BP 132/64
== END 2021-03-05 00:55 | disposition home or self-care (01) ==
LOC: ER 23:39
DX: G89.29 Other chronic pain (principal); R07.89 Other chest pain; I11.0 Hypertensive heart disease with heart failure; I50.9 Heart failure, unspecified; F16.10 Hallucinogen abuse, uncomplicated; F10.20 Alcohol dependence, uncomplicated; Y90.9 Presence of alcohol in blood, level not specified
CPT/HCPCS: 93005; 96374; 99283; J1885

== ENCOUNTER 2021-03-05 19:53 | Emergency (ER) | payer MEDICARE, OTHER ==
[~2021-03-05] VITALS: Ht 180.3 cm; Wt 78.0 kg
[2021-03-05 21:50] LABS: CHLORIDE 107 mEq/L (98-107)
[2021-03-05 21:57] LABS: BASOPHILS % 0.7 % (0.0-2.0); EOSINOPHILS % 2.6 % (0.0-5.0); HEMATOCRIT. 35.2 % (42.0-52.0); HEMOGLOBIN. 11.6 g/dL (14.0-18.0); LYMPHOCYTES % 31.8 % (20.0-50.0); MEAN CORPUSCULAR HEMOGLOBIN 33.1 pg (28.0-32.0); MEAN CORPUSCULAR VOLUME 100.4 fL (80.0-94.0); MEAN PLATELET VOLUME 8.4 fl (7.4-10.4); MONOCYTES % 9.7 % (2.0-8.0); NEUTROPHILS % 55.2 % (40.0-76.0); PLATELET 216 x1000/uL (130-400); RED CELL DISTRIBUTION WIDTH 15.6 % (11.6-14.6)
[2021-03-06] MEDS ORDERED: FUROSEMIDE 40MG/4ML VIAL IVP ONE
[2021-03-06] MEDS ORDERED: ASPIRIN 81MG TABLET PO ONE
[2021-03-06 08:13] VITALS: BP 150/70
== END 2021-03-06 08:52 | disposition short-term general hospital (02) ==
LOC: ER 19:53
DX: I11.0 Hypertensive heart disease with heart failure (principal); I50.9 Heart failure, unspecified; F10.10 Alcohol abuse, uncomplicated; F16.10 Hallucinogen abuse, uncomplicated; Z79.899 Other long term (current) drug therapy; Z79.82 Long term (current) use of aspirin; Z13.9 Encounter for screening, unspecified; Y90.9 Presence of alcohol in blood, level not specified
CPT/HCPCS: 36415; 71045; 80053; 83880; 84484; 85025; 93005; 96374; 99285; J1940; Z7610

== ENCOUNTER 2021-03-08 21:24 | Emergency (ER) | payer MEDICARE, OTHER ==
[~2021-03-08] VITALS: Ht 188 cm; Wt 81.0 kg
[2021-03-09] MEDS ORDERED: ACETAMINOPHEN 500MG TABLET PO ONE (01:00)
[2021-03-09 01:33] LABS: BASOPHILS % 0.5 % (0.0-2.0); EOSINOPHILS % 2.5 % (0.0-5.0); HEMATOCRIT. 36.1 % (42.0-52.0); HEMOGLOBIN. 11.9 g/dL (14.0-18.0); LYMPHOCYTES % 25.3 % (20.0-50.0); MEAN CORPUSCULAR VOLUME 100.2 fL (80.0-94.0); MEAN PLATELET VOLUME 8.5 fl (7.4-10.4); MONOCYTES % 11.4 % (2.0-8.0); NEUTROPHILS % 60.3 % (40.0-76.0); PLATELET 209 x1000/uL (130-400); RED CELL DISTRIBUTION WIDTH 15.5 % (11.6-14.6)
[2021-03-09 01:41] LABS: CHLORIDE 108 mEq/L (98-107)
[2021-03-09 02:30] VITALS: BP 126/87
== END 2021-03-09 03:24 | disposition home or self-care (01) ==
LOC: ER 21:24
DX: R07.2 Precordial pain (principal); R79.89 Other specified abnormal findings of blood chemistry; D64.9 Anemia, unspecified; I11.0 Hypertensive heart disease with heart failure; I50.9 Heart failure, unspecified; F16.90 Hallucinogen use, unspecified, uncomplicated; F10.20 Alcohol dependence, uncomplicated; Y90.9 Presence of alcohol in blood, level not specified; Z79.82 Long term (current) use of aspirin; Z79.899 Other long term (current) drug therapy
CPT/HCPCS: 36415; 71045; 80053; 82962; 83880; 84484; 85025; 99284

== ENCOUNTER 2021-03-10 20:31 | Emergency (ER) | payer MEDICARE, OTHER ==
[~2021-03-10] VITALS: Ht 182.9 cm; Wt 79.0 kg
[2021-03-11 00:01] LABS: *AMPHETAMINES SCREEN URINE NEGATIVE (NEGATIVE); *BARBITURATES SCREEN URINE NEGATIVE (NEGATIVE); *BENZODIAZEPINES SCREEN URINE NEGATIVE (NEGATIVE); *COCAINE SCREEN URINE NEGATIVE (NEGATIVE); METHADONE URINE SCREEN NEGATIVE (NEGATIVE); OPIATES URINE SCREEN NEGATIVE (NEGATIVE)
[2021-03-11 00:03] LABS: CANNABINOID URINE SCREEN NEGATIVE (NEGATIVE); PHENCYCLIDINE URINE SCREEN PRESUMTIVE POSITIVE (NEGATIVE)
[2021-03-11] MEDS ORDERED: ACETAMINOPHEN 325MG TABLET PO ONE (00:30)
[2021-03-11 00:49] LABS: CHLORIDE 107 mEq/L (98-107)
[2021-03-11 00:52] LABS: BASOPHILS % 0.9 % (0.0-2.0); EOSINOPHILS % 4.2 % (0.0-5.0); HEMATOCRIT. 39.2 % (42.0-52.0); HEMOGLOBIN. 12.8 g/dL (14.0-18.0); LYMPHOCYTES % 25.7 % (20.0-50.0); MEAN CORPUSCULAR HEMOGLOBIN 32.8 pg (28.0-32.0); MEAN CORPUSCULAR VOLUME 100.7 fL (80.0-94.0); MEAN PLATELET VOLUME 8.7 fl (7.4-10.4); MONOCYTES % 14.2 % (2.0-8.0); PLATELET 206 x1000/uL (130-400); RED BLOOD CELL COUNT 3.89 mill/uL (4.7-6.1); RED CELL DISTRIBUTION WIDTH 15.6 % (11.6-14.6)
[2021-03-11 00:53] LABS: ETHANOL BLOOD 12 mg/dL
[2021-03-11 02:17] VITALS: BP 140/82
== END 2021-03-11 02:18 | disposition home or self-care (01) ==
LOC: ER 20:31
DX: R07.89 Other chest pain (principal); I11.0 Hypertensive heart disease with heart failure; I50.9 Heart failure, unspecified; F16.10 Hallucinogen abuse, uncomplicated; F10.129 Alcohol abuse with intoxication, unspecified; Z79.899 Other long term (current) drug therapy; Y90.9 Presence of alcohol in blood, level not specified
CPT/HCPCS: 36415; 71045; 80053; 80305; 80320; 82962; 83880; 84484; 85025; 93005; 99285; G0480

== ENCOUNTER 2021-04-10 18:37 | Emergency (ER) | payer MEDICARE, OTHER ==
[~2021-04-10] VITALS: Ht 177.8 cm; Wt 83.0 kg
[2021-04-11 01:36] LABS: HEMOGLOBIN. 11.9 g/dL (14.0-18.0); RED BLOOD CELL COUNT 3.65 mill/uL (4.7-6.1)
[2021-04-11 01:40] LABS: CHLORIDE 105 mEq/L (98-107)
[2021-04-11 01:43] LABS: BASOPHILS % 0.6 % (0.0-2.0); EOSINOPHILS % 4.1 % (0.0-5.0); ETHANOL BLOOD < 10 mg/dL; HEMATOCRIT. 35.9 % (42.0-52.0); LYMPHOCYTES % 31.6 % (20.0-50.0); MEAN CORPUSCULAR HEMOGLOBIN 32.5 pg (28.0-32.0); MEAN CORPUSCULAR VOLUME 98.4 fL (80.0-94.0); MEAN PLATELET VOLUME 7.8 fl (7.4-10.4); MONOCYTES % 8.7 % (2.0-8.0); PLATELET 213 x1000/uL (130-400); RED CELL DISTRIBUTION WIDTH 15.1 % (11.6-14.6)
[2021-04-11 01:45] VITALS: BP 142/88
[2021-04-11] MEDS ORDERED: FUROSEMIDE 40MG/4ML VIAL IVP ONE (02:00)
[2021-04-11] MEDS ORDERED: FUROSEMIDE 40MG TABLET PO ONE (02:00)
== END 2021-04-11 02:10 | disposition home or self-care (01) ==
LOC: ER 18:37
DX: I11.0 Hypertensive heart disease with heart failure (principal); I50.9 Heart failure, unspecified
CPT/HCPCS: 36415; 71045; 80053; 80320; 83880; 84484; 85025; 93005; 99284; G0480

== ENCOUNTER 2021-04-21 18:53 | Emergency (ER) | payer MEDICARE, OTHER ==
[~2021-04-21] VITALS: Ht 182.9 cm; Wt 81.0 kg
[2021-04-21] MEDS ORDERED: IBUPROFEN 600MG TABLET PO STA (22:28)
[2021-04-22 00:31] VITALS: BP 144/75
== END 2021-04-22 00:33 | disposition home or self-care (01) ==
LOC: ER 18:53
DX: R07.89 Other chest pain (principal); I45.2 Bifascicular block; I11.0 Hypertensive heart disease with heart failure; I50.9 Heart failure, unspecified
CPT/HCPCS: 71045; 93005; 99283

== ENCOUNTER 2021-04-22 19:26 | Emergency (ER) | payer MEDICARE, OTHER ==
[~2021-04-22] VITALS: Ht 182.9 cm; Wt 82.0 kg
[2021-04-22 20:57] LABS: BASOPHILS % 0.8 % (0.0-2.0); EOSINOPHILS % 2.1 % (0.0-5.0); HEMATOCRIT. 35.6 % (42.0-52.0); LYMPHOCYTES % 12.8 % (20.0-50.0); MEAN CORPUSCULAR HEMOGLOBIN 32.8 pg (28.0-32.0); MEAN CORPUSCULAR VOLUME 97.8 fL (80.0-94.0); MEAN PLATELET VOLUME 7.9 fl (7.4-10.4); MONOCYTES % 6.8 % (2.0-8.0); NEUTROPHILS % 77.5 % (40.0-76.0); PLATELET 269 x1000/uL (130-400); RED BLOOD CELL COUNT 3.64 mill/uL (4.7-6.1); RED CELL DISTRIBUTION WIDTH 15.6 % (11.6-14.6)
[2021-04-22 20:58] LABS: CHLORIDE 109 mEq/L (98-107)
[2021-04-22] MEDS ORDERED: HYDROCODONE/ACETAMINOPHEN 5/325MG TABLET PO ONE (22:00)
[2021-04-22 22:15] VITALS: BP 132/81
== END 2021-04-22 22:37 | disposition home or self-care (01) ==
LOC: ER 19:26
DX: R07.89 Other chest pain (principal); M79.604 Pain in right leg; I11.0 Hypertensive heart disease with heart failure; I50.9 Heart failure, unspecified; J44.9 Chronic obstructive pulmonary disease, unspecified; I25.10 Atherosclerotic heart disease of native coronary artery without angina pectoris; F16.90 Hallucinogen use, unspecified, uncomplicated; F10.20 Alcohol dependence, uncomplicated; Y90.9 Presence of alcohol in blood, level not specified
CPT/HCPCS: 36415; 71045; 80053; 83880; 84484; 85025; 93005; 99285

== ENCOUNTER 2021-08-02 22:06 | Emergency (ER) | payer MEDICAID, MEDICARE ==
[~2021-08-02] VITALS: Ht 177.8 cm; Wt 100.0 kg
[2021-08-02] MEDS ORDERED: ASPIRIN 325MG EC TABLET PO ONE (23:30)
[2021-08-02 23:43] VITALS: BP 132/85
== END 2021-08-02 23:44 | disposition home or self-care (01) ==
LOC: ER 22:06
DX: S90.512A Abrasion, left ankle, initial encounter (principal); S90.511A Abrasion, right ankle, initial encounter; R07.89 Other chest pain; X58.XXXA Exposure to other specified factors, initial encounter; Y93.89 Activity, other specified; Y92.89 Other specified places as the place of occurrence of the external cause; Y99.8 Other external cause status; Z79.899 Other long term (current) drug therapy
CPT/HCPCS: 93005; 99283

== ENCOUNTER 2021-08-05 19:13 | Emergency (ER) | payer MEDICAID, MEDICARE ==
[~2021-08-05] VITALS: Ht 177.8 cm; Wt 90.0 kg
[2021-08-05 19:22] VITALS: BP 148/96
[2021-08-06 00:02] LABS: EOSINOPHILS % 1.3 % (0.0-5.0); HEMATOCRIT. 44.7 % (42.0-52.0); HEMOGLOBIN. 14.7 g/dL (14.0-18.0); LYMPHOCYTES % 21.6 % (20.0-50.0); MEAN PLATELET VOLUME 8.3 fl (7.4-10.4); MONOCYTES % 6.9 % (2.0-8.0); NEUTROPHILS % 69.2 % (40.0-76.0); PLATELET 188 x1000/uL (130-400); RED BLOOD CELL COUNT 4.61 mill/uL (4.7-6.1); RED CELL DISTRIBUTION WIDTH 15.5 % (11.6-14.6)
[2021-08-06 00:14] LABS: CHLORIDE 109 mEq/L (98-107)
[2021-08-06 00:18] LABS: ETHANOL BLOOD < 10 mg/dL
== END 2021-08-06 01:23 | disposition home or self-care (01) ==
LOC: ER 19:13
DX: K40.90 Unilateral inguinal hernia, without obstruction or gangrene, not specified as recurrent (principal); N43.3 Hydrocele, unspecified; I11.0 Hypertensive heart disease with heart failure; I50.9 Heart failure, unspecified; K44.9 Diaphragmatic hernia without obstruction or gangrene; K57.90 Diverticulosis of intestine, part unspecified, without perforation or abscess without bleeding; N40.0 Benign prostatic hyperplasia without lower urinary tract symptoms; I70.0 Atherosclerosis of aorta; Z95.828 Presence of other vascular implants and grafts
CPT/HCPCS: 36415; 71045; 74176; 76870; 80053; 80320; 83605; 83880; 84145; 84484; 85025; 93005; 93976; 99285; G0480

== ENCOUNTER 2021-08-08 15:56 | Inpatient (IN) | payer MEDICARE, MEDICAID ==
[~2021-08-08] VITALS: Ht 172.7 cm; Wt 88.5 kg
[2021-08-08 18:30] LABS: *AMPHETAMINES SCREEN URINE NEGATIVE (NEGATIVE); CANNABINOID URINE SCREEN NEGATIVE (NEGATIVE); OPIATES URINE SCREEN NEGATIVE (NEGATIVE); PHENCYCLIDINE URINE SCREEN PRESUMTIVE POSITIVE (NEGATIVE)
[2021-08-08 18:31] LABS: *BARBITURATES SCREEN URINE NEGATIVE (NEGATIVE); *BENZODIAZEPINES SCREEN URINE NEGATIVE (NEGATIVE); *COCAINE SCREEN URINE NEGATIVE (NEGATIVE); METHADONE URINE SCREEN NEGATIVE (NEGATIVE)
[2021-08-08 21:16] LABS: BASOPHILS % 0.8 % (0.0-2.0); EOSINOPHILS % 1.3 % (0.0-5.0); HEMATOCRIT. 42.2 % (42.0-52.0); LYMPHOCYTES % 21.5 % (20.0-50.0); MEAN CORPUSCULAR VOLUME 96.5 fL (80.0-94.0); MEAN PLATELET VOLUME 8.6 fl (7.4-10.4); NEUTROPHILS % 69.4 % (40.0-76.0); PLATELET 182 x1000/uL (130-400); RED BLOOD CELL COUNT 4.37 mill/uL (4.7-6.1); RED CELL DISTRIBUTION WIDTH 15.6 % (11.6-14.6)
[2021-08-08 21:17] LABS: CHLORIDE 107 mEq/L (98-107)
[2021-08-08 21:21] LABS: ETHANOL BLOOD < 10 mg/dL
[2021-08-08] MEDS ORDERED: ASPIRIN 81MG TABLET PO SCH (22:30)
[2021-08-09 09:00] VITALS: BP 138/72
[2021-08-09 09:30] VITALS: BP 138/72
[2021-08-09] MEDS: FUROSEMIDE 40MG/4ML VIAL IVP SCH ×2 (09:56→10:02)
[2021-08-09] MEDS: ASPIRIN 81MG TABLET PO SCH (09:58)
[2021-08-09] MEDS: FAMOTIDINE 20MG TABLET PO SCH ×2 (09:59→22:59)
[2021-08-09] MEDS: LISINOPRIL 20MG TABLET PO SCH (09:59)
[2021-08-09] MEDS ORDERED: ENOXAPARIN 40MG/0.4ML SYR SUBCUT SCH (10:00)
[2021-08-09] MEDS ORDERED: CARVEDILOL 3.125 MG TABLET PO SCH (10:00)
[2021-08-09] MEDS: ENOXAPARIN 80MG/0.8ML SYR SUBCUT SCH ×2 (10:00→21:00)
[2021-08-09 12:00] VITALS: BP 141/82
[2021-08-09 16:00] VITALS: BP 142/70
[2021-08-09 20:16] VITALS: BP 156/82
[2021-08-09] MEDS ORDERED: NIFE-32 PO (20:49)
[2021-08-09] MEDS ORDERED: RIVA20TA PO (20:49)
[2021-08-09] MEDS ORDERED: FURO-151 MT (20:49)
[2021-08-10 00:16] VITALS: BP 127/68
[2021-08-10] MEDS: FUROSEMIDE 40MG/4ML VIAL IVP SCH (06:37)
[2021-08-10] MEDS: FAMOTIDINE 20MG TABLET PO SCH (09:27)
[2021-08-10] MEDS: ASPIRIN 81MG TABLET PO SCH (09:27)
[2021-08-10] MEDS: ENOXAPARIN 80MG/0.8ML SYR SUBCUT SCH (09:27)
[2021-08-10] MEDS: LISINOPRIL 20MG TABLET PO SCH (09:35)
[2021-08-10 10:07] VITALS: BP 116/71
[2021-08-10 10:09] LABS: INR 1.1; PROTHROMBIN TIME 11.4 sec (9.6-11.0)
== END 2021-08-10 15:06 | disposition home or self-care (01) | DRG 194 ==
LOC: ER 15:56 → 6WST 22:54 → ENRESERV 08-09 07:24
PROVIDERS: ADMIT Internal Medicine; ATTEND Internal Medicine
DX: I11.0 Hypertensive heart disease with heart failure (principal); F14.90 Cocaine use, unspecified, uncomplicated; I50.33 Acute on chronic diastolic (congestive) heart failure; F16.10 Hallucinogen abuse, uncomplicated; Z20.822 Contact with and (suspected) exposure to COVID-19; F17.210 Nicotine dependence, cigarettes, uncomplicated; Z86.711 Personal history of pulmonary embolism; Z86.718 Personal history of other venous thrombosis and embolism; Z91.14 Patient's other noncompliance with medication regimen
CPT/HCPCS: 36415; 71045; 80053; 80305; 80320; 83880; 84484; 85025; 87426; 93005; 99285; J1650; J1940; G0480

== ENCOUNTER 2021-08-16 21:50 | Emergency (ER) | payer MEDICARE, MEDICAID ==
[~2021-08-16] VITALS: Ht 177.8 cm; Wt 88.0 kg
[~2021-08-16 21:50] MED LIST changes: -ASPI-1406 PO
[2021-08-16 21:59] VITALS: BP 140/80
[2021-08-16] MEDS ORDERED: ASPIRIN 325MG EC TABLET PO ONE (22:30)
[2021-08-17 01:44] LABS: BASOPHILS % 0.4 % (0.0-2.0); EOSINOPHILS % 0.6 % (0.0-5.0); HEMATOCRIT. 43.5 % (42.0-52.0); HEMOGLOBIN. 14.2 g/dL (14.0-18.0); MEAN CORPUSCULAR HEMOGLOBIN 31.7 pg (28.0-32.0); MEAN CORPUSCULAR VOLUME 97.2 fL (80.0-94.0); MEAN PLATELET VOLUME 8.8 fl (7.4-10.4); MONOCYTES % 5.7 % (2.0-8.0); NEUTROPHILS % 80.3 % (40.0-76.0); PLATELET 227 x1000/uL (130-400); RED BLOOD CELL COUNT 4.47 mill/uL (4.7-6.1); RED CELL DISTRIBUTION WIDTH 15.7 % (11.6-14.6)
[2021-08-17 01:52] LABS: CHLORIDE 108 mEq/L (98-107)
== END 2021-08-17 02:02 | disposition home or self-care (01) ==
LOC: ER 21:50
DX: R07.89 Other chest pain (principal); I11.0 Hypertensive heart disease with heart failure; I50.9 Heart failure, unspecified; Z79.899 Other long term (current) drug therapy
CPT/HCPCS: 36415; 71045; 74176; 80053; 83880; 84484; 85025; 93005; 99285

== ENCOUNTER 2021-09-18 19:16 | Emergency (ER) | payer MEDICARE, OTHER ==
[~2021-09-18] VITALS: Ht 177.8 cm; Wt 82.0 kg
[2021-09-18] MEDS ORDERED: ASPIRIN 81MG TABLET PO ONE (19:45)
[2021-09-18] MEDS ORDERED: NITROGLYCERIN 0.4MG TABLET SL SL PRN (21:00)
[2021-09-18 22:00] LABS: BASOPHILS % 0.3 % (0.0-2.0); CHLORIDE 104 mEq/L (98-107); EOSINOPHILS % 0.7 % (0.0-5.0); HEMATOCRIT. 35.5 % (42.0-52.0); HEMOGLOBIN. 11.8 g/dL (14.0-18.0); LYMPHOCYTES % 20.8 % (20.0-50.0); MEAN CORPUSCULAR HEMOGLOBIN 32.4 pg (28.0-32.0); MEAN CORPUSCULAR VOLUME 97.7 fL (80.0-94.0); MEAN PLATELET VOLUME 8.9 fl (7.4-10.4); MONOCYTES % 7.3 % (2.0-8.0); NEUTROPHILS % 70.9 % (40.0-76.0); PLATELET 143 x1000/uL (130-400); RED BLOOD CELL COUNT 3.64 mill/uL (4.7-6.1); RED CELL DISTRIBUTION WIDTH 15.1 % (11.6-14.6)
[2021-09-18 22:41] VITALS: BP 121/65
== END 2021-09-18 23:55 | disposition short-term general hospital (02) ==
LOC: ER 19:16
DX: R07.89 Other chest pain (principal); I11.0 Hypertensive heart disease with heart failure; I50.9 Heart failure, unspecified; Z79.899 Other long term (current) drug therapy
CPT/HCPCS: 36415; 71045; 80053; 82962; 83880; 84484; 85025; 93005; 99285

== ENCOUNTER 2021-09-22 21:59 | Emergency (ER) | payer MEDICARE, OTHER ==
[~2021-09-22] VITALS: Ht 182.9 cm; Wt 89.0 kg
[2021-09-23] MEDS ORDERED: ASPIRIN 325MG EC TABLET PO ONE (01:45)
[2021-09-23] MEDS ORDERED: ONDANSETRON 4MG ODT PO ONE (01:45)
[2021-09-23] MEDS ORDERED: FAMOTIDINE 20MG TABLET PO ONE (01:45)
[2021-09-23 03:46] LABS: CHLORIDE 105 mEq/L (98-107)
[2021-09-23 03:57] LABS: BASOPHILS % 0.6 % (0.0-2.0); EOSINOPHILS % 0.9 % (0.0-5.0); HEMATOCRIT. 41.7 % (42.0-52.0); HEMOGLOBIN. 13.5 g/dL (14.0-18.0); LYMPHOCYTES % 18.5 % (20.0-50.0); MEAN CORPUSCULAR HEMOGLOBIN 31.7 pg (28.0-32.0); MEAN CORPUSCULAR VOLUME 97.9 fL (80.0-94.0); MEAN PLATELET VOLUME 8.7 fl (7.4-10.4); MONOCYTES % 8.3 % (2.0-8.0); NEUTROPHILS % 71.7 % (40.0-76.0); PLATELET 181 x1000/uL (130-400); RED BLOOD CELL COUNT 4.26 mill/uL (4.7-6.1); RED CELL DISTRIBUTION WIDTH 15.3 % (11.6-14.6)
[2021-09-23 05:29] VITALS: BP 112/67
== END 2021-09-23 05:43 | disposition short-term general hospital (02) ==
LOC: ER 21:59
DX: R07.89 Other chest pain (principal); I11.0 Hypertensive heart disease with heart failure; I50.9 Heart failure, unspecified
CPT/HCPCS: 36415; 71045; 80053; 83690; 83880; 84484; 85025; 93005; 99285; Q0162; Z7610

== ENCOUNTER 2021-10-06 21:01 | Emergency (ER) | payer MEDICARE, OTHER ==
[~2021-10-06] VITALS: Ht 175.3 cm; Wt 86.0 kg
[2021-10-06 22:05] LABS: BASOPHILS % 0.4 % (0.0-2.0); EOSINOPHILS % 1.3 % (0.0-5.0); HEMOGLOBIN. 13.4 g/dL (14.0-18.0); LYMPHOCYTES % 12.5 % (20.0-50.0); MEAN CORPUSCULAR VOLUME 98.5 fL (80.0-94.0); MEAN PLATELET VOLUME 8.6 fl (7.4-10.4); MONOCYTES % 7.1 % (2.0-8.0); NEUTROPHILS % 78.7 % (40.0-76.0); PLATELET 157 x1000/uL (130-400); RED BLOOD CELL COUNT 4.06 mill/uL (4.7-6.1); RED CELL DISTRIBUTION WIDTH 14.9 % (11.6-14.6)
[2021-10-06 22:12] LABS: CHLORIDE 109 mEq/L (98-107)
[2021-10-07] MEDS ORDERED: ACETAMINOPHEN 325MG TABLET PO ONE (01:15)
[2021-10-07 02:52] VITALS: BP 112/59
== END 2021-10-07 02:53 | disposition home or self-care (01) ==
LOC: ER 21:01
DX: R07.2 Precordial pain (principal); I44.4 Left anterior fascicular block; I11.0 Hypertensive heart disease with heart failure; I50.9 Heart failure, unspecified
CPT/HCPCS: 36415; 71045; 80053; 83880; 84484; 85025; 93005; 99285

== ENCOUNTER 2021-10-07 18:47 | Emergency (ER) | payer MEDICARE, OTHER ==
[~2021-10-07] VITALS: Ht 182.9 cm; Wt 90.0 kg
[2021-10-07 21:36] LABS: BASOPHILS % 0.4 % (0.0-2.0); EOSINOPHILS % 2.4 % (0.0-5.0); HEMATOCRIT. 37.2 % (42.0-52.0); HEMOGLOBIN. 12.3 g/dL (14.0-18.0); MEAN PLATELET VOLUME 8.4 fl (7.4-10.4); MONOCYTES % 6.9 % (2.0-8.0); NEUTROPHILS % 72.3 % (40.0-76.0); PLATELET 181 x1000/uL (130-400); RED BLOOD CELL COUNT 3.84 mill/uL (4.7-6.1); RED CELL DISTRIBUTION WIDTH 14.7 % (11.6-14.6)
[2021-10-07 21:44] LABS: CHLORIDE 111 mEq/L (98-107)
[2021-10-07 21:51] LABS: ETHANOL BLOOD < 10 mg/dL
[2021-10-07] MEDS ORDERED: ACETAMINOPHEN 325MG TABLET PO ONE (22:00)
[2021-10-07 22:44] VITALS: BP 166/89
== END 2021-10-07 22:50 | disposition home or self-care (01) ==
LOC: ER 18:47
DX: R07.89 Other chest pain (principal); R42 Dizziness and giddiness; F16.10 Hallucinogen abuse, uncomplicated; I11.0 Hypertensive heart disease with heart failure; I50.9 Heart failure, unspecified
CPT/HCPCS: 36415; 71045; 80053; 80320; 83880; 84484; 85025; 93005; 99285; G0480

== ENCOUNTER 2021-10-08 03:30 | Emergency (ER) | payer MEDICARE, OTHER ==
[~2021-10-08] VITALS: Ht 175.3 cm; Wt 79.0 kg
[2021-10-08] MEDS ORDERED: MAGNESIUM/ALUMINUM HYDROXIDE/SIMETHICONE 30ML UDC PO ONE (03:45)
[2021-10-08 03:49] VITALS: BP 155/88
== END 2021-10-08 04:05 | disposition home or self-care (01) ==
LOC: ER 03:49
DX: R07.89 Other chest pain (principal); R10.13 Epigastric pain; I11.0 Hypertensive heart disease with heart failure; I50.9 Heart failure, unspecified; F19.21 Other psychoactive substance dependence, in remission
CPT/HCPCS: 93005; 99283

== ENCOUNTER 2021-10-11 01:18 | Emergency (ER) | payer MEDICARE, OTHER ==
[~2021-10-11] VITALS: Ht 182.9 cm; Wt 95.0 kg
[2021-10-11 02:11] VITALS: BP 140/75
[2021-10-11] MEDS ORDERED: ACETAMINOPHEN 325MG TABLET PO STA (03:54)
[2021-10-11 04:28] LABS: BASOPHILS % 0.5 % (0.0-2.0); EOSINOPHILS % 1.2 % (0.0-5.0); HEMATOCRIT. 34.8 % (42.0-52.0); HEMOGLOBIN. 11.3 g/dL (14.0-18.0); MEAN CORPUSCULAR HEMOGLOBIN 32.3 pg (28.0-32.0); MEAN CORPUSCULAR VOLUME 99.5 fL (80.0-94.0); MEAN PLATELET VOLUME 8.4 fl (7.4-10.4); MONOCYTES % 11.6 % (2.0-8.0); NEUTROPHILS % 66.7 % (40.0-76.0); PLATELET 187 x1000/uL (130-400); RED CELL DISTRIBUTION WIDTH 14.8 % (11.6-14.6)
[2021-10-11 04:36] LABS: CHLORIDE 109 mEq/L (98-107)
== END 2021-10-11 06:00 | disposition home or self-care (01) ==
LOC: ER 01:54
DX: R07.89 Other chest pain (principal); I11.0 Hypertensive heart disease with heart failure; I50.9 Heart failure, unspecified; Z79.899 Other long term (current) drug therapy
CPT/HCPCS: 36415; 71045; 80053; 84484; 85025; 93005; 99285

== ENCOUNTER 2021-10-11 21:41 | Emergency (ER) | payer MEDICARE, OTHER ==
[~2021-10-11] VITALS: Ht 182.9 cm; Wt 89.0 kg
[2021-10-12] MEDS ORDERED: IBUPROFEN 600MG TABLET PO ONE (03:45)
[2021-10-12 03:51] VITALS: BP 170/77
== END 2021-10-12 05:01 | disposition home or self-care (01) ==
LOC: ER 21:58
DX: R60.0 Localized edema (principal); G89.29 Other chronic pain; R07.89 Other chest pain; M79.662 Pain in left lower leg; M79.661 Pain in right lower leg; I11.0 Hypertensive heart disease with heart failure; I50.9 Heart failure, unspecified; Z79.899 Other long term (current) drug therapy
CPT/HCPCS: 93005; 99283

== ENCOUNTER 2021-10-14 21:44 | Emergency (ER) | payer MEDICARE, OTHER ==
[~2021-10-14] VITALS: Ht 182.9 cm; Wt 87.0 kg
[2021-10-15] MEDS ORDERED: ASPIRIN 325MG EC TABLET PO ONE (02:45)
[2021-10-15 03:06] VITALS: BP 101/85
== END 2021-10-15 03:07 | disposition home or self-care (01) ==
LOC: ER 21:44
DX: R07.89 Other chest pain (principal); I45.2 Bifascicular block
CPT/HCPCS: 93005; 99283

== ENCOUNTER 2023-03-25 16:32 | Emergency (ER) | payer MEDICARE, OTHER ==
[~2023-03-25] VITALS: Ht 182.9 cm; Wt 87.0 kg
[~2023-03-25 16:32] MED LIST changes: +AMLO2.5T45 PO; +AMLO5TAB88 PO; +APIX5TAB PO; +ASPI-1160 PO; +ASPI-1497 MT; +CLON0.1T MT; +CLONIDINE; +FAMO20TA8 PO; +FURO-151 PO; +IBUP-2028 MT; +LOSA-413 PO; +LOSA25TA3 PO; +MAG-55 MT; +MELA5TAB19 PO; +METH-773 MT; +OMEP20CA14 PO; +POTA-205 MT; +RISP0.5T65 PO; +RISP05 PO; +TOPUD MT; +TRAM50TA3 MT; +XANAX; +XAR15 PO
[2023-03-25 16:48] VITALS: BP 155/74; PULSE 76; RESP 18; TEMP 98.3; O2SAT 94
== END 2023-03-25 17:06 | disposition home or self-care (01) ==
LOC: ER 16:32 → SUPCPDRO 21:47
DX: R55 Syncope and collapse (principal); I11.0 Hypertensive heart disease with heart failure; I50.9 Heart failure, unspecified; Z00.00 Encounter for general adult medical examination without abnormal findings; Z79.899 Other long term (current) drug therapy
CPT/HCPCS: 99283

== ENCOUNTER 2025-06-10 16:01 | Inpatient (IN) | payer MEDICARE, MEDICAID ==
[~2025-06-10] VITALS: Ht 152.4 cm; Wt 115.2 kg
[~2025-06-10 16:01] MED LIST changes: +ACET-2178 PO; -ACET-2708 MT; -ACET-2708 PO; +AMLO10TA80 PO; -AMLO2.5T45 PO; -AMLO5TAB88 PO; -ASPI-1160 PO; -CLON0.1T MT; +CLON0.1T PO; -CLONIDINE; +CLOP-31 PO; -DOCU-150 MT; +DOCU-422 MT; -FAMO20TA8 PO; -FURO-151 MT; -FURO-151 PO; -HYDR-4001 MT; -IBUP-2028 MT; +IPRA3AMP9 NEB; +LIP40 PO; +LOSA-412 PO; -LOSA-413 PO; -LOSA25TA3 PO; -MAG-55 MT; +MAGN30OR PO; -METH-773 MT; +MOM PO; -NIFE-32 PO; -OMEP20CA14 PO; -POTA-205 MT; -RISP0.5T65 PO; -RIVA20TA PO; -TOPUD MT; -TRAM50TA3 MT; -XANAX; -XAR15 PO
[2025-06-10 16:04] VITALS: O2SAT 98
[2025-06-10 17:43] LABS: BASOPHILS % 0.5 % (0.0-2.0); EOSINOPHILS % 1.5 % (0.0-5.0); HEMATOCRIT. 45.5 % (42.0-52.0); HEMOGLOBIN. 14.4 g/dL (14.0-18.0); LYMPHOCYTES % 20.1 % (20.0-50.0); MEAN PLATELET VOLUME 9.3 fl (7.4-10.4); MONOCYTES % 9.5 % (2.0-8.0); NEUTROPHILS % 68.4 % (40.0-76.0); PLATELET 150 x1000/uL (130-400); RED BLOOD CELL COUNT 4.31 mill/uL (4.7-6.1); RED CELL DISTRIBUTION WIDTH 15.9 % (11.6-14.6)
[2025-06-10 17:56] LABS: INR 1.1
[2025-06-10 17:57] LABS: CREATININE 1.4 mg/dL (0.6-1.3); UREA NITROGEN BLOOD 21 mg/dL (9-23)
[2025-06-10 17:58] LABS: PROTEIN TOTAL 7.8 g/dL (6.0-8.3)
[2025-06-10 17:59] LABS: ASPARTATE AMINOTRANSFERASE 22 IU/L (<34); BILIRUBIN DIRECT 0.5 mg/dL (<=3.0); BILIRUBIN TOTAL 1.4 mg/dL (0.1-1.0); TROPONIN I HIGH SENSITIVITY 36 ng/L (3.0-53)
[2025-06-10] MEDS: FUROSEMIDE 40MG/4ML VIAL IV ONE (18:12)
[2025-06-10] MEDS ORDERED: CLONIDINE 0.1MG TABLET PO PRN (20:15)
[2025-06-10] MEDS ORDERED: MAGNESIUM/ALUMINUM HYDROXIDE/SIMETHICONE 30ML UDC PO PRN (20:15)
[2025-06-10] MEDS ORDERED: IPRATROPIUM/ALBUTEROL 0.5-3(2.5)MG/3ML NEB HHN PRN (20:15)
[2025-06-10] MEDS ORDERED: ACETAMINOPHEN 325MG TABLET PO PRN ×2 (20:15)
[2025-06-10] MEDS ORDERED: DOCUSATE SODIUM 100MG CAPSULE PO PRN (20:15)
[2025-06-10] MEDS ORDERED: ONDANSETRON HCL 4MG/2ML INJ IV PRN (20:15)
[2025-06-10] MEDS ORDERED: ENOXAPARIN 120MG/0.8ML SYR SUBCUT SCH (21:00)
[2025-06-10 21:22] LABS: CLARITY URINE CLEAR (CLEAR); COLOR URINE YELLOW (YELLOW); GLUCOSE URINE NEGATIVE (NEGATIVE); KETONES URINE NEGATIVE (NEGATIVE); LEUKOCYTE ESTERASE URINE NEGATIVE (NEGATIVE); NITRITE URINE NEGATIVE (NEGATIVE); OCCULT BLOOD URINE NEGATIVE (NEGATIVE); PH URINE 5.5 (4.5-8.0); PROTEIN URINE 1+ (NEGATIVE); SPECIFIC GRAVITY URINE 1.015 (1.005-1.030); UROBILINOGEN URINE 0.2 E.U./dL (0.2-1.0)
[2025-06-10 21:42] LABS: *AMPHETAMINES SCREEN URINE NEGATIVE (NEGATIVE)
[2025-06-10 21:43] LABS: *BARBITURATES SCREEN URINE NEGATIVE (NEGATIVE); *BENZODIAZEPINES SCREEN URINE NEGATIVE (NEGATIVE); *COCAINE SCREEN URINE NEGATIVE (NEGATIVE); CANNABINOID URINE SCREEN NEGATIVE (NEGATIVE); ECSTASY MDMA SCREEN URINE NEGATIVE (NEGATIVE); METHADONE URINE SCREEN NEGATIVE (NEGATIVE); OPIATES URINE SCREEN NEGATIVE (NEGATIVE); PHENCYCLIDINE URINE SCREEN NEGATIVE (NEGATIVE)
[2025-06-10 21:56] LABS: PHOSPHORUS 4.4 mg/dL (2.5-4.9)
[2025-06-10 22:17] LABS: RBC URINE NONE SEEN /hpf (0-2); WBC URINE NONE SEEN /hpf (0-2)
[2025-06-10 22:18] LABS: SQUAMOUS EPITHELIAL CELL URINE RARE /lpf (RARE/1+)
[2025-06-10 22:19] LABS: BACTERIA URINE NONE SEEN; MUCUS URINE TRACE /lpf (NONE/TRACE)
[2025-06-11 03:30] VITALS: BP 141/107; PULSE 102; RESP 20; TEMP 36.696
[2025-06-11 10:27] LABS: *AMPHETAMINES SCREEN URINE NEGATIVE (NEGATIVE); *BARBITURATES SCREEN URINE NEGATIVE (NEGATIVE); *BENZODIAZEPINES SCREEN URINE NEGATIVE (NEGATIVE); *COCAINE SCREEN URINE NEGATIVE (NEGATIVE); CANNABINOID URINE SCREEN NEGATIVE (NEGATIVE); ECSTASY MDMA SCREEN URINE NEGATIVE (NEGATIVE); METHADONE URINE SCREEN NEGATIVE (NEGATIVE); OPIATES URINE SCREEN NEGATIVE (NEGATIVE); PHENCYCLIDINE URINE SCREEN NEGATIVE (NEGATIVE)
[2025-06-11] MEDS: ASPIRIN 81MG EC TABLET PO SCH (10:34)
[2025-06-11] MEDS: ENOXAPARIN 120MG/0.8ML SYR SUBCUT SCH (10:34)
[2025-06-11] MEDS: FUROSEMIDE 40MG/4ML VIAL IV SCH (10:34)
[2025-06-11] MEDS: EMPAGLIFLOZIN 10MG TABLET PO SCH (10:35)
[2025-06-11] MEDS: RISPERIDONE 0.25MG TABLET PO SCH (10:36)
[2025-06-11] MEDS: PANTOPRAZOLE SODIUM 40 MG/VIAL IV SCH (10:46)
[2025-06-11] MEDS: LOSARTAN 25 MG TABLET PO SCH (10:50)
[2025-06-11 16:00] VITALS: BP 129/69; PULSE 67; RESP 22; TEMP 37.2; O2SAT 93
[2025-06-11] MEDS: FUROSEMIDE 40MG/4 ML UDC PO SCH (18:00)
[2025-06-11 20:00] VITALS: BP 148/77; PULSE 78; RESP 18; TEMP 37; O2SAT 98
[2025-06-11] MEDS: ATORVASTATIN CALCIUM 40MG TABLET PO SCH (21:13)
[2025-06-12] VITALS: BP 149/77; PULSE 78; RESP 20; TEMP 36.7; O2SAT 98
[2025-06-12 04:00] VITALS: BP 149/88; PULSE 73; RESP 18; TEMP 37; O2SAT 99
[2025-06-12 08:00] VITALS: BP 105/69; PULSE 57; RESP 18; TEMP 36.9; O2SAT 98
[2025-06-12] MEDS: CLOPIDOGREL 75MG TABLET PO SCH (09:06)
[2025-06-12 10:47] LABS: BASOPHILS % 0.5 % (0.0-2.0); EOSINOPHILS % 1.7 % (0.0-5.0); HEMATOCRIT. 43.3 % (42.0-52.0); HEMOGLOBIN. 13.8 g/dL (14.0-18.0); LYMPHOCYTES % 17.2 % (20.0-50.0); MEAN PLATELET VOLUME 9.0 fl (7.4-10.4); MONOCYTES % 13.8 % (2.0-8.0); NEUTROPHILS % 66.8 % (40.0-76.0); PLATELET 131 x1000/uL (130-400); RED BLOOD CELL COUNT 4.19 mill/uL (4.7-6.1); RED CELL DISTRIBUTION WIDTH 15.7 % (11.6-14.6)
[2025-06-12 11:09] LABS: CREATININE 1.4 mg/dL (0.6-1.3); UREA NITROGEN BLOOD 17 mg/dL (9-23)
[2025-06-12 11:10] LABS: TROPONIN I HIGH SENSITIVITY 26 ng/L (3.0-53)
[2025-06-12 11:11] LABS: PHOSPHORUS 3.6 mg/dL (2.5-4.9)
[2025-06-12 11:14] LABS: VITAMIN B12 SERUM 454 pg/mL (211-911)
[2025-06-12 11:15] LABS: FOLIC ACID (FOLATE) SERUM 14.83 ng/mL (>5.38)
[2025-06-12 12:00] VITALS: BP 129/79; PULSE 58; RESP 20; TEMP 35.9; O2SAT 99
[2025-06-12] MEDS ORDERED: DEXTROSE 50% WATER 50ML SYRINGE IV PRN (13:45)
[2025-06-12 16:00] VITALS: BP 142/65; PULSE 60; RESP 20; TEMP 36.9; O2SAT 93
[2025-06-12] MEDS: BLOOD SUGAR DIAGNOSTIC STRIP TEST SCH (17:12)
[2025-06-12] MEDS: INSULIN LISPRO 100 UNITS/ML SUBCUT SCH (17:13)
[2025-06-12 20:00] VITALS: BP 130/83; PULSE 66; RESP 17; TEMP 36.7; O2SAT 94
[2025-06-13 04:00] VITALS: BP 135/70; PULSE 62; RESP 20; TEMP 36.4; O2SAT 95
[2025-06-13] MEDS: FUROSEMIDE 40MG/4 ML UDC PO SCH (06:49)
[2025-06-13 08:00] VITALS: BP 119/70; PULSE 75; RESP 18; TEMP 35.9; O2SAT 97
[2025-06-13 12:00] VITALS: BP 118/58; PULSE 66; RESP 19; TEMP 36.6; O2SAT 100
[2025-06-13 16:00] VITALS: BP 131/60; PULSE 62; RESP 20; TEMP 36.5; O2SAT 97
[2025-06-13 16:43] LABS: CREATININE 1.3 mg/dL (0.6-1.3); UREA NITROGEN BLOOD 16 mg/dL (9-23)
[2025-06-14] VITALS: BP 128/85; PULSE 75; RESP 18; TEMP 36.7; O2SAT 90
[2025-06-14 04:00] VITALS: BP 152/85; PULSE 68; RESP 16; TEMP 36.4; O2SAT 92
[2025-06-14 08:00] VITALS: BP 151/86; PULSE 72; RESP 19; TEMP 36.4; O2SAT 97
[2025-06-14 12:00] VITALS: BP 105/58; PULSE 65; RESP 19; TEMP 36.5; O2SAT 95
[2025-06-14 20:00] VITALS: BP 165/70; PULSE 73; RESP 19; TEMP 36.6
[2025-06-15 02:10] VITALS: BP 127/80; PULSE 73; RESP 20; TEMP 36.7; O2SAT 94
[2025-06-15 04:00] VITALS: BP 137/93; PULSE 59; RESP 17; TEMP 36.5; O2SAT 95
[2025-06-15 08:00] VITALS: BP 143/79; PULSE 61; RESP 16; TEMP 36.8; O2SAT 96
[2025-06-15 12:00] VITALS: BP 131/85; PULSE 60; RESP 18; TEMP 36.7; O2SAT 97
[2025-06-15 16:00] VITALS: PULSE 58; RESP 20; TEMP 36.8; O2SAT 96
[2025-06-15 20:00] VITALS: BP 128/80; PULSE 80; RESP 18; TEMP 36.6; O2SAT 99
[2025-06-15] MEDS ORDERED: IOHEXOL-350 100 ML BOTTLE ONE (23:14)
[2025-06-16 04:00] VITALS: BP 116/86; PULSE 56; RESP 19; TEMP 36.4; O2SAT 95
[2025-06-16 08:00] VITALS: BP 120/97; PULSE 63; RESP 20; TEMP 36.5; O2SAT 96
[2025-06-16 12:00] VITALS: BP 127/77; PULSE 65; RESP 20; TEMP 36.6; O2SAT 100
[2025-06-16 16:00] VITALS: BP 121/63; PULSE 53; RESP 18; TEMP 36.6; O2SAT 94
[2025-06-16 20:00] VITALS: BP 115/88; PULSE 64; RESP 20; TEMP 36.8; O2SAT 98
[2025-06-17] VITALS: BP 107/61; PULSE 51; RESP 19; TEMP 36.7; O2SAT 95
[2025-06-17 04:00] VITALS: BP 113/74; PULSE 67; RESP 20; TEMP 36.7; O2SAT 92
[2025-06-17 08:00] VITALS: BP 108/70; PULSE 65; RESP 20; TEMP 36.6; O2SAT 97
[2025-06-17 12:00] VITALS: BP 135/89; PULSE 75; RESP 19; TEMP 36.7; O2SAT 100
[2025-06-17 16:00] VITALS: BP 131/74; PULSE 70; RESP 19; TEMP 36.5; O2SAT 96
[2025-06-17] MEDS ORDERED: APIXABAN 5 MG TABLET PO SCH (21:00)
== END 2025-06-17 19:28 | DRG 291 ==
LOC: ER 16:01 → EDBEDREQ 16:57 → 8WST 18:01 → EDBEDREQ 18:02 → EDBEDREQTM 18:02 → ENRESERV 22:14
PROVIDERS: ADMIT Internal Medicine; ATTEND Internal Medicine
DX: I13.0 Hypertensive heart and chronic kidney disease with heart failure and stage 1 through stage 4 chronic kidney disease, or unspecified chronic kidney disease (principal); I50.33 Acute on chronic diastolic (congestive) heart failure; J96.01 Acute respiratory failure with hypoxia; L97.919 Non-pressure chronic ulcer of unspecified part of right lower leg with unspecified severity; F03.93 Unspecified dementia, unspecified severity, with mood disturbance; Z68.42 Body mass index [BMI] 45.0-49.9, adult; I27.24 Chronic thromboembolic pulmonary hypertension; Z79.01 Long term (current) use of anticoagulants; D75.89 Other specified diseases of blood and blood-forming organs; E11.22 Type 2 diabetes mellitus with diabetic chronic kidney disease; F25.9 Schizoaffective disorder, unspecified; Z79.02 Long term (current) use of antithrombotics/antiplatelets; E66.9 Obesity, unspecified; F10.21 Alcohol dependence, in remission; N18.9 Chronic kidney disease, unspecified; F32.A Depression, unspecified; J44.9 Chronic obstructive pulmonary disease, unspecified; Z95.828 Presence of other vascular implants and grafts; E78.5 Hyperlipidemia, unspecified; K21.9 Gastro-esophageal reflux disease without esophagitis; I25.10 Atherosclerotic heart disease of native coronary artery without angina pectoris; I87.8 Other specified disorders of veins; I89.0 Lymphedema, not elsewhere classified; N40.0 Benign prostatic hyperplasia without lower urinary tract symptoms; Z55.6 Problems related to health literacy; Z79.82 Long term (current) use of aspirin; Z79.899 Other long term (current) drug therapy; Z86.711 Personal history of pulmonary embolism; Z86.718 Personal history of other venous thrombosis and embolism; Z86.73 Personal history of transient ischemic attack (TIA), and cerebral infarction without residual deficits; Z87.891 Personal history of nicotine dependence; Z95.5 Presence of coronary angioplasty implant and graft
CPT/HCPCS: 36415; 71045; 71275; 80048; 80076; 80305; 80320; 81003; 82550; 82607; 82746; 82962; 83036; 83735; 83880; 84100; 84484; 85025; 85379; 93005; 93306; 96374; 97162; 97166; 97530; 97535; 99291; A4606; J1650; J1938; J1940; J2470; Q9967; G0480